=== PATIENT | female | born 2000 | race Caucasian/White ===

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

== ENCOUNTER 2021-01-23 19:57 | Inpatient (IN) | payer OTHER, SELFPAY ==
[2021-01-23] VITALS (22 sets, daily range): BP systolic 110–172; BP diastolic 57–101; PULSE 75–138; RESP 15–46; TEMP 36.7; O2SAT 98–100
--- NOTE | ~2021-01-23 | XR_ITS ---
EXAMINATION: XR abdomen NG/feed tube insert DATE: 01/24/2021 00:44 INDICATION: Orogastric tube placement. TECHNIQUE: A semiupright view of the abdomen was obtained. COMPARISON: Abdomen radiograph 11/13/2020 FINDINGS: The lower abdomen is excluded. There are no dilated loops of bowel. The orogastric tube tip is in the stomach. IMPRESSION: 1. Orogastric tube tip in the stomach. Reviewed, dictated and finalized at location A. L CAMPAIGN MANAGER
--- NOTE | ~2021-01-23 | XR_ITS ---
EXAMINATION: XR chest ET placement EXAM DATE: 01/23/2021 21:03 INDICATION: Endotracheal tube placement . Respiratory failure. TECHNIQUE: Portable AP frontal chest x-ray was obtained. Comparison is made to prior examination from 11/14/2020. FINDINGS: Endotracheal tube is in expected position. There is low lung volume, pulmonary vascular crown assembly machine set up mechanic wding. No confluent consolidation, pneumothorax or pleural effusion suspected. The cardiomediastinal silhouette is prominent but magnified on this AP technique. There are no osseous abnormalities identi fied. IMPRESSION: 1. ET tube in position. Reviewed, dictated and finalized at location A. CTOR LEARNING AND DEVELOPMENT IMPRESSION: 1. ET tube in position.
--- NOTE | ~2021-01-23 | XR_ITS ---
EXAMINATION: XR chest 1V portable DATE: 01/24/2021 05:52 INDICATION: Intubation. Allergic reaction. TECHNIQUE: A single frontal view of the chest was obtained. COMPARISON: Chest single view 01/23/2021, neck CT 11/13/2020 FINDINGS: The chest demonstrates clear lungs without pneumonia, pleural effusion, or pneumothorax. Th e heart size is normal. The endotracheal tube tip is 4.1 cm above the paul. The nasogastric tube ti p is in the stomach. IMPRESSION: 1. No acute cardiopulmonary disease. Reviewed, dictated and finalized at location A. ASSOCIATE
--- NOTE | ~2021-01-23 | XR_ITS ---
EXAMINATION: XR chest 1V portable DATE: 01/25/2021 06:00 INDICATION: Respiratory failure. TECHNIQUE: A single frontal view of the chest was obtained. COMPARISON: Chest single view 01/24/2021 FINDINGS: The chest demonstrates clear lungs without pneumonia, pleural effusion, or pneumothorax. Th e heart size is normal. The nasogastric tube tip is in the stomach. The endotracheal tube tip is 5.4 cm above the paul. IMPRESSION: 1. No acute cardiopulmonary disease. Reviewed, dictated and finalized at location A. ING METER SERVICER
[2021-01-23] MEDS: methylPREDNISolone SOD SUCC 125 MG VIAL IV PUSH (20:01)
--- NOTE | 2021-01-23 20:05 | PC.NURSE ---
MD Mensah came to bedside, plan to intubate, RT here at bedside preparing to intubate
--- NOTE | 2021-01-23 20:10 | PC.NURSE ---
20:10 Etomidate 10mg given 20:11 Succ 100mg given 20:12 Pt intubated my MD Mensah; 25 at the lip, bilateral breath sounds present
[2021-01-23] MEDS: PROPOFOL IV EMULSION 100 ML 18.18 MG IV CONT (20:20)
[2021-01-23] MEDS: MIDAZOLAM HCL (*CRX) 2 MG/2 ML VIAL 4 MG IV PUSH (20:24)
--- NOTE | 2021-01-23 20:32 | ED.ALLEREA ---
HPI - Allergic Reaction General Chief complaint: Allergic Reaction Stated complaint: ?anaphylaxis Time Seen by Provider: 01/23/21 20:01 Source: patient and EMS Mode of arrival: EMS Limitations: no limitations History of Present Illness HPI narrative: 20-year-old with a history of mast cell dysfunction, anxiety disorder was brought in from home with a sudden onset of shortness of breath, as per the EMS patient did get Benadryl and epi. Patient also took her own epi. With no relief. She denies eating any seafood. She denied any chest pain MD complaint: allergic reaction Onset (ago): minute(s) (30) Exposure: unknown Symptoms: difficulty breathing Severity: severe Treatment prior to arrival: benadryl, epinephrine and oxygen Previous Allergic Reaction History: anaphylaxis and intubation (multiple) Related Data Home Medications Medication Instructions Recorded Confirmed fexofenadine 360 mg PO DAILY 11/13/20 11/13/20 fexofenadine 360 mg PO HS 11/13/20 11/13/20 metoprolol succinate 50 mg PO DAILY 11/13/20 11/13/20 montelukast 10 mg PO DAILY 11/13/20 11/13/20 Allergies Allergy/AdvReac Type Severity Reaction Status Date / Time shellfish derived Allergy Severe Anaphylaxis Verified 11/13/20 02:21 mast cell disorder Allergy Severe Other Uncoded 11/12/20 19:50 Review of Systems Review of Systems: All systems reviewed & are unremarkable except as noted in HPI and below Constitutional: Constitutional: Reports no additional constitutional complaints Eyes: Eyes: Reports no additional eye complaints Cardiovascular: Cardiovascular: Reports no additional cardiovascular complaints Respiratory: Respiratory: Reports as per HPI Gastrointestinal: Gastrointestinal: Reports no additional gastrointestinal complaints Musculoskeletal: Musculoskeletal: Reports no additional musculoskeletal complaints Neurologic: Reports system reviewed and no additional complaints, except as documented Psychiatric: Psychiatric: Reports no additional psychiatric complaints Endocrine: Endocrine: Reports no additional endocrine complaints PMFSH Past Medical History Medical History Mast cell activation syndrome Social History Social History Smoking status: Never smoker Alcohol intake: current Substance use: never Spiritual care concerns: No Exam Narrative: GENERAL: Well-appearing, well-nourished, anxious HEAD: Normocephalic, atraumatic. EYES: PERRLA and EOMI. ENT: Nares clear, no rhinorrhea or epistaxis. Mucous membranes moist. NECK: Supple. supra sternal retractions CHEST: Clear to auscultation. in Moderate respiratory distress HEART: Tachycardic No murmur heard. Normal peripheral pulses. ABDOMEN: Soft, nontender, nondistended, normal active bowel sounds. EXTREMITIES: Normal range of motion. No edema. SKIN: Warm, dry, no rash. NEURO: No focal deficits. Alert and oriented x3. PSYCH: Normal mood and affect. Course Course Emergency Course: Patient was becoming more anxious. Opted for intubation. Patient agreeable. Vital Signs Vital signs: Vital Signs Pulse Rate 138 H 01/23/21 19:57 Respiratory Rate 46 H 01/23/21 19:57 Pulse Oximetry 100 01/23/21 19:57 Pulse Rate 116 H 01/23/21 20:59 Respiratory Rate 20 01/23/21 20:46 Blood Pressure 134/81 01/23/21 20:30 Pulse Oximetry 98 01/23/21 20:59 Procedures Intubation Intubation #1: Intubation Date: 01/23/21 Time out performed: Yes sedative: Etomidate (10) paralytic: Succinylcholine (100) Laryngoscope: Bull (4) Tube Size (cm): 7.5 Method of Intubation: orotracheal Number of Attempts: 1 Tube Secured Depth (cm): 24 Tube Secured Location: teeth (25) Tube Placement Confirmation: visualized tube passing through cords, equal breath sounds bilaterally and confirmation by capnometry
[2021-01-23 20:49] LABS: Basophils Percent Auto 0.3 % (0.2-1.2); Eosinophils Absolute Auto 0.1 K/mm3 (0-0.3); Eosinophils Percent Auto 0.7 % (0-4.4); Hematocrit 38.3 % (37.0-47.0); Hemoglobin 13.1 g/dL (12.0-15.0); Immature Granulocyte Absolute 0.06 K/mm3 (0.00-0.031); Immature Granulocyte Percent A 0.4 % (0-0.5); Lymphocytes Absolute Auto 4.95 K/mm3 (0.9-3.2); Lymphocytes Percent Auto 32.7 % (18.3-44.2); Mean Corpuscular HGB Conc 34.2 g/dl (32-36); Mean Corpuscular Hemoglobin 30.5 pg (26-34); Mean Corpuscular Volume 89.1 fl (80-100); Mean Platelet Volume 10.6 fl (7.4-10.4); Monocytes Absolute Auto 1.3 K/mm3 (0.1-0.6); Monocytes Percent Auto 8.7 % (2.6-8.5); Neutrophils Absolute Auto 8.7 K/mm3 (1.3-6.7); Neutrophils Percent Auto 57.2 % (45.5-73.1); Platelet Count Result 400 k/mm3 (150-375); Red Cell Distribution Width 12.2 % (11.5-14.5); White Blood Count 15.1 K/mm3 (4.5-10.0)
[2021-01-23 21:00] LABS: Anion Gap 13 mmol/L (8-16); Blood Urea Nitrogen 10 mg/dL (8-21); Calcium 9.4 mg/dL (8.9-10.7); Carbon Dioxide 21 mmol/L (22-30); Chloride 105 mmol/L (98-107); Estimated CRCL calculation 148 ml/min; Estimated Glomerular Filt Rate > 60; Glucose 126 mg/dL (65-110); Potassium 2.9 mmol/L (3.4-5.0); Sodium 139 mmol/L (134-143)
--- NOTE | 2021-01-23 21:00 | PC.NURSE ---
RASS 0, MD aware, pt texting on her cell phone. Calm and cooperative, pt's sister at bedside.
[2021-01-23] MEDS: SODIUM CHLORIDE 0.9% IV 1,000 ML 125 ML IV CONT (21:20)
--- NOTE | 2021-01-23 22:00 | PC.NURSE ---
RASS 0. Pt Facetiming friends/family on her cell phone. Awaiting admission to ICU. Pt's sister remains at bedside.
[2021-01-23] MEDS: diphenhydrAMINE HCl INJ 50 MG/ML VIAL 25 MG IV PUSH (22:09)
[2021-01-24] VITALS (48 sets, daily range): BP systolic 113–138; BP diastolic 65–99; PULSE 58–104; RESP 15–22; TEMP 36.8–37.1; O2SAT 98–100; BMI 31.0; BMI 30.7
[2021-01-24] MEDS: MIDAZOLAM 100MG/NS 100ML(*CRX) 100 MG/100 ML BAG IV CONT (00:34)
[2021-01-24] MEDS: PROPOFOL IV EMULSION 100 ML 30.3 MG IV CONT ×4 (00:35→10:15)
[2021-01-24] MEDS: diphenhydrAMINE HCl INJ 50 MG/ML VIAL 25 MG IV PUSH ×4 (00:38→18:36)
[2021-01-24] MEDS: methylPREDNISolone SOD SUCC 125 MG VIAL IV PUSH ×2 (00:39→06:30)
--- NOTE | 2021-01-24 01:04 | PC.NURSE ---
This patient, Kaylie Schaeffer, was admitted to Intensive Care Unit-9. Patient/family oriented to hospital policies and general routines including ID bracelet, bed and alarms, visiting hours, pain management, procedures, bathroom and other care routines, personal items, smoking policy, room service/diet, and visiting hours. Information on how to activate the Rapid Response Team has been discussed. Patient/Family are encouraged to report perceived risks to care and to ask questions if they do not understand what they are told or what they should do.
--- NOTE | 2021-01-24 03:53 | PM.IMHP ---
H&P: HPI History of Present Illness Date/Time: 01/24/21 03:53 Chief Complaint: Shortness of breath Narrative: This is a 20-year-old female with past medical history significant for mast cell dysfunction, multiple intubations, anaphylactic reaction. Patient was brought to the emergency room after she has sudden onset of anaphylactic reaction she used her EpiPen and EMS give her Benadryl an AP as well upon arrival to the emergency room patient's T complaining of severe shortness of breath requiring intubation. At the time of my visit patient was awake alert intubated unable to get any history due to this. Most of the history has been obtained upon review of medical records and speaking with emergency room physician. Preliminary workup has been essentially nonrevealing. Review of Systems Review of Systems: ROS unobtainable: Yes unobtainable due to medical condition (Patient intubated) PMFSH Past Medical History Medical History Mast cell activation syndrome Social History Social History Smoking status: Never smoker Second hand tobacco smoke exposure: No Alcohol intake: current Substance use: never Spiritual care concerns: No Meds Home Medications and Allergies Home Medications Medication Instructions Recorded Confirmed Type metoprolol succinate 50 mg PO DAILY 11/13/20 01/23/21 History montelukast 10 mg PO DAILY 11/13/20 01/23/21 History epinephrine 0.3 mg IM Q5-15M PRN #2 ea 11/16/20 01/23/21 Rx famotidine 20 mg PO Q12HR #30 tablet 11/16/20 01/23/21 Rx fexofenadine 180 mg PO DAILY 01/24/21 01/24/21 History Allergies Allergy/AdvReac Type Severity Reaction Status Date / Time shellfish derived Allergy Severe Anaphylaxis Verified 01/24/21 02:34 mast cell disorder Allergy Severe Other Uncoded 01/24/21 02:34 Vital Signs Vital Signs - 24 hr 01/23/21 19:57 01/23/21 20:14 01/23/21 20:30 Temperature Pulse Rate 138 H 118 H 118 H Respiratory Rate 46 H 16 24 H Blood Pressure 172/93 H 134/81 Pulse Oximetry 100 100 100 01/23/21 20:41 01/23/21 20:45 01/23/21 20:46 Temperature Pulse Rate 118 H 115 H 113 H Respiratory Rate 24 H 16 20 Blood Pressure Pulse Oximetry 100 98 01/23/21 20:59 01/23/21 21:00 01/23/21 21:15 Temperature 98.1 F Pulse Rate 116 H 101 H 100 Respiratory Rate 25 H 21 H Blood Pressure Pulse Oximetry 98 100 100 01/23/21 21:30 01/23/21 21:45 01/23/21 22:00 Temperature Pulse Rate 96 91 79 Respiratory Rate 24 H 30 H 17 Blood Pressure Pulse Oximetry 100 100 100 01/23/21 22:14 01/23/21 22:15 01/23/21 22:17 Temperature Pulse Rate 83 78 83 Respiratory Rate 19 15 17 Blood Pressure 114/57 L 121/67 Pulse Oximetry 99 100 100 01/23/21 22:30 01/23/21 22:32 01/23/21 22:41 Temperature Pulse Rate 81 81 82 Respiratory Rate 20 16 Blood Pressure 122/58 L Pulse Oximetry 100 100 100 01/23/21 22:45 01/23/21 22:47 01/23/21 23:37 Temperature Pulse Rate 83 75 79 Respiratory Rate 17 21 H Blood Pressure 112/101 H Pulse Oximetry 99 100 01/23/21 23:55 01/24/21 00:00 01/24/21 00:17 Temperature 98.8 F Pulse Rate 75 896 H 71 Respiratory Rate 18 17 Blood Pressure 110/65 134/68 Pulse Oximetry 100 99 100 01/24/21 00:34 01/24/21 00:35 01/24/21 01:00 Temperature Pulse Rate 90 75 73 Respiratory Rate 16 16 16 Blood Pressure Pulse Oximetry 01/24/21 01:20 01/24/21 01:45 01/24/21 02:00 Temperature Pulse Rate 73 79 99 Respiratory Rate 16 16 22 H Blood Pressure Pulse Oximetry 01/24/21 02:30 01/24/21 03:21 Temperature Pulse Rate 104 H 81 Respiratory Rate 22 H 20 Blood Pressure Pulse Oximetry Exam Narrative: Patient is laying in [place] Const: General: cooperative, comfortable, no acute distress, well developed, alert, awake, Physically active and other (Well-appearing) Nutritional Nory
[2021-01-24 05:04] LABS: Basophils Percent Auto 0.1 % (0.2-1.2); Hematocrit 37.2 % (37.0-47.0); Hemoglobin 12.4 g/dL (12.0-15.0); Immature Granulocyte Absolute 0.08 K/mm3 (0.00-0.031); Immature Granulocyte Percent A 0.7 % (0-0.5); Lymphocytes Absolute Auto 0.47 K/mm3 (0.9-3.2); Lymphocytes Percent Auto 3.8 % (18.3-44.2); Mean Corpuscular HGB Conc 33.3 g/dl (32-36); Mean Corpuscular Hemoglobin 30.1 pg (26-34); Mean Corpuscular Volume 90.3 fl (80-100); Mean Platelet Volume 10.3 fl (7.4-10.4); Monocytes Absolute Auto 0.1 K/mm3 (0.1-0.6); Monocytes Percent Auto 0.4 % (2.6-8.5); Neutrophils Absolute Auto 11.6 K/mm3 (1.3-6.7); Platelet Count Result 323 k/mm3 (150-375); Red Blood Count 4.12 M/mm3 (4.2-5.4); Red Cell Distribution Width 12.3 % (11.5-14.5); White Blood Count 12.3 K/mm3 (4.5-10.0)
[2021-01-24] MEDS: SODIUM CHLORIDE 0.9% IV 1,000 ML 125 ML IV CONT ×3 (05:20→20:39)
[2021-01-24 05:22] LABS: Anion Gap 13 mmol/L (8-16); Blood Urea Nitrogen 9 mg/dL (8-21); Calcium 9.2 mg/dL (8.9-10.7); Carbon Dioxide 19 mmol/L (22-30); Chloride 106 mmol/L (98-107); Estimated CRCL calculation 173 ml/min; Estimated Glomerular Filt Rate > 60; Glucose 207 mg/dL (65-110); Potassium 4.4 mmol/L (3.4-5.0); Sodium 138 mmol/L (134-143)
[2021-01-24 06:07] LABS: Alveolar/Arterial O2 Gradient 8.6 mmHg; Base Excess ABG -3.3 mEq/l (+/-2.0); Fractional Inspired Oxygen 25 %; Oxygen Saturation ABG 98.5 % (95.0-100.0); Oxyhemoglobin 97.2 % THb (90.0-100.0); PCO2 ABG 35.3 mmHg (35.0-45.0); PO2 ABG 127.7 mmHg (80.0-100.0); PO2 FiO2 Ratio Arterial Blood 5.11 %; Total Hemoglobin 13.8 g/dL (12.0-18.0); pH ABG 7.392 (7.350-7.450)
[2021-01-24 06:08] LABS: Arterial Blood Gas PEEP 5 cmH2O; Arterial Blood Gas Tidal Volume 400 ml; Arterial Blood Gas Vent Mode CMV; Arterial Blood Gas Ventilator rate 14 /MIN; Device VENTILATOR; Modified Allen's Test Pass; Site Drawn RIGHT RADIAL
[2021-01-24] MEDS: FAMOTIDINE 20 MG/2 ML VIAL IV PUSH ×2 (09:09→20:40)
[2021-01-24] MEDS: dexmedeTOMIDine 400 MCG/100 ML 400 MCG/100 ML BAG 12.86 MCG IV CONT (10:11)
[2021-01-24] MEDS: methylPREDNISolone SOD SUCC 125 MG VIAL 60 MG IV PUSH ×2 (12:15→18:37)
--- NOTE | 2021-01-24 12:28 | PCFNICU ---
ICU Rounding Note: Pt current nutrition is NPO. Last recorded weight is 102.9 kg. Bowel Motility:No BM reported. Labs Reviewed:Glu 207,Cr 0.6 Meds Noted:Propofol at 27.27 ml/va=142 kcals, NS, Versed, Precedex, Benadryl, Solu-Medrol, Pepcid. Skin:WNL Additional Notes: Patient on mechanical vent at this time. Diet orders NPO at this time. Tube feeding recommendations: Jevity 1.2 at 40 ml/hr over 22 hours at this time due to propofol dose. Following daily in ICU rounds. Assessing/reassessment every Friday and Friday.
--- NOTE | 2021-01-24 12:56 | WPDCNINT ---
Assessment and Plan Assessment and plan (1) Acute respiratory failure: Code(s): J96.00 - Acute respiratory failure, unspecified whether with hypoxia or hypercapnia Status: Acute Assessment and Plan: Patient presented the ED on 01/23/2021 with complains of questionable anaphylaxis, shortness of breath, severe anxiety with tachycardia, tachypnea with adequate O2 sats. Patient was intubated on 01/23/2021 in the ER. -currently on CMV mode of ventilation, peep of 5 and 25% FiO2 -patient is sedated with propofol and Versed infusion -chest x-ray this morning is clear -will start weaning sedation and evaluate for extubation -patient has a history of anxiety attacks, will start Precedex infusion (2) Allergic reaction: Code(s): T78.40XA - Allergy, unspecified, initial encounter Status: Acute Assessment and Plan: Patient with possible allergic reaction as she has a history of mast cell activation syndrome -continues Solu-Medrol, Benadryl and Pepcid (3) Acute hypokalemia: Code(s): E87.6 - Hypokalemia Status: Acute Assessment and Plan: Resolved (4) Anxiety attack: Code(s): F41.0 - Panic disorder [episodic paroxysmal anxiety] Status: Acute Assessment and Plan: Patient has been started Precedex infusion and may require some benzodiazepine prior to extubation (5) DVT prophylaxis: Code(s): Z29.9 - Encounter for prophylactic measures, unspecified Status: Acute Assessment and Plan: SCDs Additional Plan Code status full code Critical care time spent: 44 minutes This dictation may have been done utilizing a voice recognition system. Attempts have been made to correct errors. However, there may be uncorrected grammatical, spelling, and recognition errors present. Due to a high probability of clinically significant, life threatening deterioration, the patient required my highest level of preparedness to intervene emergently and I personally spent this critical care time directly and personally managing the patient. This critical care time included obtaining a history; examining the patient; pulse oximetry; ordering and review of studies; arranging urgent treatment with development of a management plan; evaluation of patient's response to treatment; frequent reassessment; and discussions with other providers. It was exclusive of separately billable procedures and treating other patients and teaching time. Please see Assessment and Plan section and the rest of the note for further information on patient assessment and treatment Photographic Double Consult Note Consult date: 01/24/21 Time Seen: 07:06 Reason for consult: Acute respiratory failure, possible anaphylaxis HPI: aKylie Schaeffer is a 20 year old female 20 you see with past medical history of mast cell activation syndrome presented the ED which complaints of allergic reaction/anaphylaxis, shortness of breath which was sudden onset. Patient did get Benadryl and epinephrine per EMS. Patient also took her own EpiPen with no relief. She denies eating a seafood. Patient did not complain the feet chest pain. She was very anxious in the ER, tachypneic, tachycardic but with good O2 sats. Was intubated in the ER on 01/23/2021. Chest x-ray is clear, WBC count was 15.1 and potassium was 2.9, which was repleted. Patient was transferred to the ICU for further management. Patient started on propofol infusion. Patient seen and examined this morning in the ICU, patient remains intubated on CMV mode of ventilation, 25% FiO2, peep of 5. Patient is sedated with propofol and Versed infusions. Patient hemodynamically stable. Adequate urine output, afebrile Review of Systems Review of Systems: ROS unobtainable: Yes unobtainable due to endotracheal tube PMFSH Past Medical History Medical History Mast cell activation syndrome Social History Social History (Reviewed
[2021-01-24] MEDS: dexmedeTOMIDine 400 MCG/100 ML 400 MCG/100 ML BAG 15.44 MCG IV CONT (16:15)
[2021-01-24] MEDS: MINERAL OIL/WHITE PETROLATUM OINTMENT 1 APPLIC EACH EYE (21:31)
[2021-01-24] MEDS: dexmedeTOMIDine 400 MCG/100 ML 400 MCG/100 ML BAG 18.01 MCG IV CONT (22:35)
[2021-01-25] VITALS (23 sets, daily range): BP systolic 121–142; BP diastolic 64–86; PULSE 53–81; RESP 15–24; TEMP 36.4–37.6; O2SAT 97–100
[2021-01-25] MEDS: methylPREDNISolone SOD SUCC 125 MG VIAL 60 MG IV PUSH ×5 (00:15→23:07)
[2021-01-25] MEDS: diphenhydrAMINE HCl INJ 50 MG/ML VIAL 25 MG IV PUSH ×5 (00:15→23:07)
[2021-01-25] MEDS: SODIUM CHLORIDE 0.9% IV 1,000 ML 125 ML IV CONT (03:44)
[2021-01-25] MEDS: dexmedeTOMIDine 400 MCG/100 ML 400 MCG/100 ML BAG 18.01 MCG IV CONT ×2 (03:45→09:16)
[2021-01-25 05:08] LABS: Basophils Percent Auto 0.1 % (0.2-1.2); Hematocrit 35.7 % (37.0-47.0); Hemoglobin 11.7 g/dL (12.0-15.0); Immature Granulocyte Absolute 0.25 K/mm3 (0.00-0.031); Immature Granulocyte Percent A 1.1 % (0-0.5); Lymphocytes Percent Auto 3.5 % (18.3-44.2); Mean Corpuscular HGB Conc 32.8 g/dl (32-36); Mean Corpuscular Hemoglobin 30.2 pg (26-34); Mean Corpuscular Volume 92.2 fl (80-100); Mean Platelet Volume 10.7 fl (7.4-10.4); Monocytes Absolute Auto 0.9 K/mm3 (0.1-0.6); Monocytes Percent Auto 4.1 % (2.6-8.5); Neutrophils Absolute Auto 20.8 K/mm3 (1.3-6.7); Neutrophils Percent Auto 91.2 % (45.5-73.1); Platelet Count Result 308 k/mm3 (150-375); Red Blood Count 3.87 M/mm3 (4.2-5.4); Red Cell Distribution Width 12.4 % (11.5-14.5); White Blood Count 22.8 K/mm3 (4.5-10.0)
[2021-01-25 05:23] LABS: Alanine Aminotransferase 16 U/L (4-35); Albumin Level 3.8 g/dL (3.7-5.6); Alkaline Phosphatase 97 U/L (45-116); Anion Gap 9 mmol/L (8-16); Aspartate Amino Transferase 26 U/L (14-36); Bilirubin,Total 0.2 mg/dL (0.2-1.3); Blood Urea Nitrogen 13 mg/dL (8-21); Calcium 8.6 mg/dL (8.9-10.7); Carbon Dioxide 21 mmol/L (22-30); Chloride 108 mmol/L (98-107); Estimated CRCL calculation 172 ml/min; Estimated Glomerular Filt Rate > 60; Glucose 170 mg/dL (65-110); Magnesium 2.1 mg/dL (1.6-2.3); Phosphorus 3.4 mg/dL (2.5-4.5); Potassium 4.1 mmol/L (3.4-5.0); Sodium 138 mmol/L (134-143)
[2021-01-25 05:27] LABS: Alveolar/Arterial O2 Gradient 30.8 mmHg; Base Excess ABG -2.7 mEq/l (+/-2.0); Carboxyhemoglobin 0.2 % THb (0-2.0); Device VENTILATOR; Fractional Inspired Oxygen 25 %; HCO3 ABG 21.5 mEq/l (22.0-26.0); Methemoglobin ABG 0.4 %THb (0-1.5); Modified Allen's Test Pass; Oxygen Content ABG 17.1 %vol (16.0-22.0); Oxygen Saturation ABG 97.9 % (95.0-100.0); Oxyhemoglobin 96.6 % THb (90.0-100.0); PCO2 ABG 35.4 mmHg (35.0-45.0); PO2 ABG 105.4 mmHg (80.0-100.0); PO2 FiO2 Ratio Arterial Blood 4.22 %; Reduced Hemoglobin 2.8 %THb (0-5.0); Site Drawn RIGHT RADIAL; Total Hemoglobin 12.5 g/dL (12.0-18.0); pH ABG 7.401 (7.350-7.450)
[2021-01-25 05:28] LABS: Arterial Blood Gas PEEP 5 cmH2O; Arterial Blood Gas Tidal Volume 40 ml; Arterial Blood Gas Vent Mode CMV; Arterial Blood Gas Ventilator rate 14 /MIN
[2021-01-25] MEDS: FAMOTIDINE 20 MG/2 ML VIAL IV PUSH ×2 (08:42→20:41)
--- NOTE | 2021-01-25 11:39 | PCFNICU ---
ICU Rounding Note: Pt current nutrition is NPO. Last recorded weight is 103.3 kg. Bowel Motility: No BM documented. Labs Reviewed: Hgb 11.7, Hct 35.7, Cr 0.6, Glu 120 Meds Noted: Xanax Skin: No skin breakdown at this time. WNL. Additional Notes: Patient was extubated. Currently NPO but advancing to clear liquids around lunch time today 01/25/2021. Following daily in ICU rounds. Assessing/reassessing every 3 days.
--- NOTE | 2021-01-25 12:58 | WPDINTPN ---
Progress Note: A&P Assessment and Plan (1) Acute respiratory failure: Code(s): J96.00 - Acute respiratory failure, unspecified whether with hypoxia or hypercapnia Status: Acute Assessment and Plan: Patient presented the ED on 01/23/2021 with complains of questionable anaphylaxis, shortness of breath, severe anxiety with tachycardia, tachypnea with adequate O2 sats. Patient was intubated on 01/23/2021 in the ER. -currently on CMV mode of ventilation, peep of 5 and 25% FiO2 -patient is sedated with propofol and Versed infusion -chest x-ray this morning is clear -patient remains on Precedex only, will place patient on SBT and evaluate for extubation -will continue Precedex post extubation and gradually wean to off (2) Allergic reaction: Code(s): T78.40XA - Allergy, unspecified, initial encounter Status: Acute Assessment and Plan: Patient with possible allergic reaction as she has a history of mast cell activation syndrome -continues Solu-Medrol, Benadryl and Pepcid (3) Acute hypokalemia: Code(s): E87.6 - Hypokalemia Status: Acute Assessment and Plan: Resolved (4) Anxiety attack: Code(s): F41.0 - Panic disorder [episodic paroxysmal anxiety] Status: Acute Assessment and Plan: Xanax has been ordered p.r.n. q.8 hours (5) DVT prophylaxis: Code(s): Z29.9 - Encounter for prophylactic measures, unspecified Status: Acute Assessment and Plan: SCDs Additional Plan Discussed with patient in updated her with her condition and plan of care. She is wanting to be extubated today. Code status full code Critical care time spent: 32 minutes This dictation may have been done utilizing a voice recognition system. Attempts have been made to correct errors. However, there may be uncorrected grammatical, spelling, and recognition errors present. Due to a high probability of clinically significant, life threatening deterioration, the patient required my highest level of preparedness to intervene emergently and I personally spent this critical care time directly and personally managing the patient. This critical care time included obtaining a history; examining the patient; pulse oximetry; ordering and review of studies; arranging urgent treatment with development of a management plan; evaluation of patient's response to treatment; frequent reassessment; and discussions with other providers. It was exclusive of separately billable procedures and treating other patients and teaching time. Please see Assessment and Plan section and the rest of the note for further information on patient assessment and treatment Subjective Date/time seen: 01/25/21 12:58 Interval history: Reason for consult: Acute respiratory failure, possible anaphylaxis 01/25/2021: Patient seen and examined the ICU, remains intubated, CMV mode of ventilation, 25% FiO2 and 5 PEEP. Patient is on Precedex infusion, is awake, able to right notes. Patient's does not seem to be anxious at this time. Urine output has been adequate, patient is afebrile, hemodynamically stable with good O2 sats. Review of Systems Review of Systems: ROS unobtainable: Yes unobtainable due to endotracheal tube Exam Const: General: comfortable and no acute distress HENMT: Other: No swelling of the tongue or lips noted Eyes: Sclera: sclerae normal Pupils: Equal, round and reactive pupils present Neck: Neck: supple Thyroid: thyroid normal Lymphatic: lymphadenopathy not noted Resp: Effort & Inspection: normal respiratory effort Auscultation: clear to auscultation bilaterally Cardio: Rate: regular rate Rhythm: regular rhythm GI: Inspection: non-distended GI Palp: Yes Soft to palpation and No Tenderness to palpation present (GI) Auscultation: normal bowel sounds : Other: Rocha catheter in place Urinary Catheter: Urinary Catheter: patent and draining and urine clear Neuro: Cranial nerves: Yes Equal, ro
[2021-01-25] MEDS: ALPRAZolam (*CRX) 0.25 MG TABLET PO (20:41)
[2021-01-26] MEDS: methylPREDNISolone SOD SUCC 125 MG VIAL 60 MG IV PUSH (05:09)
[2021-01-26] MEDS: diphenhydrAMINE HCl INJ 50 MG/ML VIAL 25 MG IV PUSH (05:09)
[2021-01-26 06:00] VITALS: BP 117/75; PULSE 88; RESP 16; TEMP 36; O2SAT 100
--- NOTE | 2021-01-26 07:39 | PCNSR ---
On 01/26/21, the student, Raya Fiore, provided care and completed [facility] documentation on this patient. I have reviewed the student's documentation and agree with the findings.
[2021-01-26] MEDS: FAMOTIDINE 20 MG/2 ML VIAL IV PUSH (08:31)
--- NOTE | 2021-01-26 09:15 | PM.DS ---
DS: Admitting Diagnosis Discharge Date 01/26/2021 Admitting Diagnosis shortness of breath DS: Discharge Diagnosis Discharge Diagnosis (1) Acute respiratory failure: Code(s): J96.00 - Acute respiratory failure, unspecified whether with hypoxia or hypercapnia Status: Acute Assessment and Plan: Patient presented the ED on 01/23/2021 with complains of questionable anaphylaxis, shortness of breath, severe anxiety with tachycardia, tachypnea with adequate O2 sats. Patient was intubated on 01/23/2021 in the ER. -currently on CMV mode of ventilation, peep of 5 and 25% FiO2 -patient is sedated with propofol and Versed infusion -chest x-ray this morning is clear -patient remains on Precedex only, will place patient on SBT and evaluate for extubation -will continue Precedex post extubation and gradually wean to off (2) Allergic reaction: Code(s): T78.40XA - Allergy, unspecified, initial encounter Status: Acute Assessment and Plan: Patient with possible allergic reaction as she has a history of mast cell activation syndrome -continues Solu-Medrol, Benadryl and Pepcid (3) Acute hypokalemia: Code(s): E87.6 - Hypokalemia Status: Acute Assessment and Plan: Resolved (4) Anxiety attack: Code(s): F41.0 - Panic disorder [episodic paroxysmal anxiety] Status: Acute Assessment and Plan: Xanax has been ordered p.r.n. q.8 hours (5) DVT prophylaxis: Code(s): Z29.9 - Encounter for prophylactic measures, unspecified Status: Acute Assessment and Plan: SCDs DS: Summary Hospital Course Reason for hospitalization: Chief Complaint: Shortness of breath Narrative: This is a 20-year-old female with past medical history significant for mast cell dysfunction, multiple intubations, anaphylactic reaction. Patient was brought to the emergency room after she has sudden onset of anaphylactic reaction she used her EpiPen and EMS give her Benadryl an AP as well upon arrival to the emergency room patient's T complaining of severe shortness of breath requiring intubation. At the time of my visit patient was awake alert intubated unable to get any history due to this. Most of the history has been obtained upon review of medical records and speaking with emergency room physician. Preliminary workup has been essentially nonrevealing. Hospital Course: Patient presented the ED on 01/23/2021 with complains of questionable anaphylaxis, shortness of breath, severe anxiety with tachycardia, tachypnea with adequate O2 sats. Patient was intubated on 01/23/2021 in the ER. -currently on CMV mode of ventilation, peep of 5 and 25% FiO2 -patient is sedated with propofol and Versed infusion -chest x-ray this morning is clear -patient remains on Precedex only, will place patient on SBT and evaluate for extubation -will continue Precedex post extubation and gradually wean to off patient was extubated and transferred out of ICU, patient with history of mast cell reactive disease and states when she has a flare-up sees significant shortness of breath and has been intubated 7 times this year, today patient states feeling comfortable not a short of breath, patient has a Epi-pen with her, will discharge the patient on tapering dose of prednisone, Pepcid, Benadryl and additional prescription for EpiPen, patient instructed if any symptoms gets worst to use her EpiPen and call 911, 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 Time spent preparing discharge summary, discharge medications, discussing discharge planning with caser and patient
== END 2021-01-26 11:45 | disposition home or self-care (01) | DRG 133 ==
LOC: ANHED 21:10 → ANHICU 01-24 13:18 → ANH3MED 01-25 22:55 → ANHICU 01-30 12:41
PROVIDERS: Internal Medicine; Admitting Provider Internal Medicine; Emergency Provider Family Medicine; Visit Provider Family Medicine
DX: J96.00 Acute respiratory failure, unspecified whether with hypoxia or hypercapnia (principal); D89.40 Mast cell activation, unspecified; T78.40XA Allergy, unspecified, initial encounter; E87.6 Hypokalemia; F41.0 Panic disorder [episodic paroxysmal anxiety]; Z79.899 Other long term (current) drug therapy; Z91.013 Allergy to seafood
CPT/HCPCS: 31500; 36415; 36600; 71045; 80048; 80053; 82375; 82805; 83050; 83735; 84100; 85025; 87077; 87086; 87088; 87186; 94003; 96365; 96375; 99285; A9270; J0330; J1200; J2250; J2704; J2930; J3480; J7030

== ENCOUNTER 2021-02-19 21:05 | Emergency (ER) | payer OTHER, SELFPAY ==
--- NOTE | ~2021-02-19 | XR_ITS ---
EXAMINATION: XR chest 1V portable EXAM DATE: 02/19/2021 22:00 INDICATION: Shortness of breath, mast effect cell disease. TECHNIQUE: Portable AP frontal chest x-ray was obtained. Comparison is made to prior examination from 01/25/2021. FINDINGS: The lungs are clear. There are no pleural effusions. The cardiomediastinal silhouette is p rominent but magnified on this AP technique. There is no pneumothorax suspected. The bones and so ft tissues are unremarkable. IMPRESSION: No acute cardiopulmonary findings. Reviewed, dictated and finalized at location A. NESS REPRESENTATIVE
[2021-02-19 21:09] VITALS: BP 124/56; PULSE 121; RESP 24; O2SAT 100
--- NOTE | 2021-02-19 21:14 | ECG_ITS ---
Measurements Intervals [place] Rate: 127 P: 52 WV: 136 QRS: 59 QRSD: 98 T: 26 QT: 403 QTc: 587 Interpretive Statements SINUS TACHYCARDIA NONSPECIFIC ST & T-WAVE ABNORMALITY- ANTEROL/INF LEADS BASELINE ARTIFACT- I, III, AVR, AVL, V1, V3-V6 ABNORMAL ECG Electronically Signed On 02-20-2021 5:21:39 PARALLEL COMPUTING SOFTWARE ENGINEER by Eloy Arce D.O.
[2021-02-19 21:17] VITALS: BP 133/74; PULSE 128; RESP 30; O2SAT 100
--- NOTE | 2021-02-19 21:17 | ED.SOB ---
HPI - SOB/Dyspnea General Chief Complaint: Shortness of Breath/Dyspnea Stated Complaint: difficulty breathing - intubated 9 x last year Time Seen by Provider: 02/19/21 21:13 Source: patient and EMS Mode of arrival: EMS Limitations: clinical condition History of Present Illness HPI Narrative: Patient is a 20 yo female with a history of mast cell dysfunction presenting for evaluation of dyspnea. Patient was recently evaluated at this facility for similar, required intubation, was initially extubated and discharged home January 26. Patient was shortness of breath developing this evening. Patient reports that she did an EpiPen at home. Dyspnea continued that she called EMS. Patient was tachycardic, anxious appearing, tachypneic for EMS. Vital signs are otherwise stable. She was given IV Solu-Medrol, IV Zofran, additional epi intramuscularly. Patient presents here awake, alert, anxious appearing, tachypneic. She is reporting nausea and some nonspecific, diffuse abdominal pain. Denying chest or back pain. Reporting shortness of breath without cough. Denies fever. Sister at bedside, states that this is happened multiple times in the past. Patient did take Benadryl at home as well. Related Data Allergies Allergy/AdvReac Type Severity Reaction Status Date / Time shellfish derived Allergy Severe Anaphylaxis Verified 02/19/21 21:32 mast cell disorder Allergy Severe Other Uncoded 02/19/21 21:32 Review of Systems Review of Systems: CONSTITUTIONAL: Denies fever CARDIOVASCULAR: Denies chest pain RESPIRATORY: Denies cough, reports shortness of breath GASTROINTESTINAL: Reports abdominal pain, nausea without vomiting GENITOURINARY: Denies dysuria or hematuria. SKIN: Denies urticaria PMFSH Past Medical History Medical History Mast cell activation syndrome Social History Social History Smoking status: Never smoker Second hand tobacco smoke exposure: No Alcohol intake: current Substance use: never Spiritual care concerns: No Exam Narrative: GENERAL: Awake, alert, tachypneic, tremulous HEAD: Normocephalic, atraumatic. EYES: PERRLA and EOMI. ENT: Nares clear, no rhinorrhea or epistaxis. Mucous membranes moist. NECK: Supple. CHEST:Pt is tachypneic, questionable supraclavicular retractions, no wheezing, lungs are clear to auscultation bilaterally, no crackles HEART: Tachycardic rate, sinus rhythm ABDOMEN:Non distended, non tender EXTREMITIES: Normal range of motion. No edema. No calf tenderness bilaterally SKIN: Warm, dry, no rash. NEURO:No focal deficits. Alert and oriented x3 PSYCH: Anxious appearing Course Vital Signs Vital signs: Vital Signs Pulse Rate 121 H 02/19/21 21:09 Respiratory Rate 24 H 02/19/21 21:09 Blood Pressure 124/56 L 02/19/21 21:09 Pulse Oximetry 100 02/19/21 21:09 Pulse Rate 78 02/20/21 01:04 Respiratory Rate 19 02/20/21 01:04 Blood Pressure 113/54 L 02/20/21 01:04 Pulse Oximetry 100 02/20/21 01:04 MDM - SOB/Dyspnea MDM Narrative Medical decision making narrative: Patient presented to the emergency department tachycardic, tachypneic, but oxygenating well. She is not cyanotic or mottled appearing. She is tolerating her secretions. I met the ambulance at bedside, continued steroids, Benadryl, albuterol treatment. Patient was given anxiolytic upon request, and actually think that this really helped to improve her symptoms. Patient was able to rest and had absolutely no respiratory distress. Her chest x-ray was clear. Her laboratory results are reassuring. She does have a mild leukocytosis. No infectious etiology at this point. The leukocytosis may be secondary to stress response. Symptoms do not seem consistent with pneumonia. No other infectious etiology. Potassium mildly low, this was replenished orally, patient received 40 mEq and tolerated this well.
[2021-02-19 21:23] LABS: Glucose Point of Care 137 mg/dl (65-105)
[2021-02-19] MEDS: DEXAMETHASONE SOD PHOS INJ 4 MG/ML VIAL (21:31)
[2021-02-19] MEDS: IPRATROPIUM BR 0.02% INH SOLN 0.5 MG/2.5 ML VIAL INHALATION (21:31)
[2021-02-19] MEDS: ALBUTEROL SULFATE NEB 2.5 MG/0.5 ML INH 5 MG INHALATION (21:31)
[2021-02-19 21:32] VITALS: BP 112/61; PULSE 113; PULSE 126; RESP 21; RESP 33; O2SAT 100
[2021-02-19] MEDS: LORazepam INJ (*CRX) 2 MG/ML VIAL 0.5 MG IV PUSH (21:34)
[2021-02-19] MEDS: HALOPERIDOL LACTATE 5 MG/ML VIAL 2 MG IV PUSH (21:35)
[2021-02-19] MEDS: ONDANSETRON INJ 4 MG/2 ML VIAL IV PUSH (21:35)
[2021-02-19] MEDS: diphenhydrAMINE HCl INJ 50 MG/ML VIAL 25 MG IV PUSH (21:35)
[2021-02-19] MEDS: FAMOTIDINE 20 MG/2 ML VIAL IV PUSH (21:35)
[2021-02-19 21:47] VITALS: BP 134/52; PULSE 97; RESP 16; O2SAT 100
[2021-02-19 21:52] LABS: Alveolar/Arterial O2 Gradient 367.2 mmHg; Base Excess ABG -6.3 mEq/l (+/-2.0); Device NON-REBREATHER MASK; Fractional Inspired Oxygen 65 %; HCO3 ABG 17.7 mEq/l (22.0-26.0); Modified Allen's Test Pass; Oxygen Content ABG 16.4 %vol (16.0-22.0); Oxygen Saturation ABG 91.9 % (95.0-100.0); Oxyhemoglobin 90.8 % THb (90.0-100.0); PCO2 ABG 30.9 mmHg (35.0-45.0); PO2 ABG 62.7 mmHg (80.0-100.0); PO2 FiO2 Ratio Arterial Blood 0.96 %; Site Drawn RIGHT RADIAL; Total Hemoglobin 12.8 g/dL (12.0-18.0); pH ABG 7.376 (7.350-7.450)
[2021-02-19 22:02] VITALS: BP 114/52; PULSE 79; RESP 22; O2SAT 100
[2021-02-19] MEDS: SODIUM CHLORIDE 0.9% IV 1,000 ML 999 ML IV CONT (22:07)
[2021-02-19 22:09] VITALS: BP 114/52; PULSE 79; RESP 25; O2SAT 100
[2021-02-19 22:47] LABS: Basophils Percent Auto 0.2 % (0.2-1.2); Eosinophils Percent Auto 0.3 % (0-4.4); Immature Granulocyte Absolute 0.09 K/mm3 (0.00-0.031); Immature Granulocyte Percent A 0.7 % (0-0.5); Lymphocytes Absolute Auto 1.12 K/mm3 (0.9-3.2); Lymphocytes Percent Auto 9.1 % (18.3-44.2); Mean Corpuscular HGB Conc 33.3 g/dl (32-36); Mean Corpuscular Hemoglobin 30.3 pg (26-34); Mean Corpuscular Volume 90.9 fl (80-100); Mean Platelet Volume 10.2 fl (7.4-10.4); Monocytes Absolute Auto 0.2 K/mm3 (0.1-0.6); Monocytes Percent Auto 1.9 % (2.6-8.5); Neutrophils Absolute Auto 10.8 K/mm3 (1.3-6.7); Neutrophils Percent Auto 87.8 % (45.5-73.1); Platelet Count Result 286 k/mm3 (150-375); Red Blood Count 3.63 M/mm3 (4.2-5.4); Red Cell Distribution Width 12.7 % (11.5-14.5); White Blood Count 12.3 K/mm3 (4.5-10.0)
[2021-02-19 22:56] LABS: Add Urine Microscopic? NO; Appearance Urine Clear (Clear); Bilirubin Urine Negative (Negative); Blood Urine Negative (Negative); Color Urine Colorless (Yellow); Glucose Urine UA Negative (Negative); Ketones Urine Negative (Negative); Leukocyte Esterase Ur Negative LEU/UL (Negative); Nitrate Urine Negative (Negative); Protein Urine Negative (Negative); Urobilinogen Urine Negative mg/dL (<2.0)
[2021-02-19 22:58] LABS: Partial Thromboplastin Time 23.5 SECONDS (22.3-36.8); Prothrombin Time 13.4 Seconds (11.1-14.7)
[2021-02-19 23:03] LABS: Specific Grav Ur 1.002 (1.001-1.035)
[2021-02-19 23:07] LABS: Alanine Aminotransferase 23 U/L (4-35); Albumin Level 3.7 g/dL (3.7-5.6); Alkaline Phosphatase 85 U/L (45-116); Anion Gap 10 mmol/L (8-16); Aspartate Amino Transferase 33 U/L (14-36); Bilirubin,Total 0.2 mg/dL (0.2-1.3); Blood Urea Nitrogen 7 mg/dL (8-21); Calcium 8.3 mg/dL (8.9-10.7); Carbon Dioxide 18 mmol/L (22-30); Chloride 106 mmol/L (98-107); Estimated CRCL calculation 174 ml/min; Estimated Glomerular Filt Rate > 60; Glucose 198 mg/dL (65-110); Lactic Acid Reflex 2.7 mmol/L (0.7-2.1); Potassium 2.9 mmol/L (3.4-5.0); Sodium 134 mmol/L (134-143)
[2021-02-19 23:17] LABS: NT Pro B Type Natriuretic Pept 79 pg/mL (5-100); Troponin I < 0.012 ng/mL (0.000-0.034)
[2021-02-20] MEDS: MAGNESIUM SULF 2 GM/WATER 50ML 2 GM/50 ML BAG IVPB (00:06)
[2021-02-20] MEDS: POTASSIUM CHLORIDE 20 MEQ PACKET (FOR LIQUID) 40 MEQ PO (00:10)
[2021-02-20 01:04] VITALS: BP 113/54; PULSE 78; RESP 19; O2SAT 100
[2021-02-20 01:45] LABS: Reflex Lactic Acid Yes or No Add Lactic
[2021-02-20 02:00] VITALS: BP 104/54; PULSE 74; RESP 16; O2SAT 98
== END 2021-02-20 02:01 | disposition home or self-care (01) ==
PROVIDERS: Emergency Provider Emergency Medicine
DX: D89.40 Mast cell activation, unspecified (principal); R00.0 Tachycardia, unspecified; R94.31 Abnormal electrocardiogram [ECG] [EKG]
CPT/HCPCS: 36415; 36600; 71045; 80053; 81003; 81025; 82805; 82948; 83605; 83880; 84484; 85025; 85610; 85730; 87040; 93005; 94640; 96361; 96365; 96374; 96375; 99284; A9270; J1100; J1200; J1630; J2060; J2405; J3475; J7030

== ENCOUNTER 2021-04-25 10:05 | Emergency (ER) | payer OTHER, SELFPAY ==
[2021-04-25 10:04] VITALS: BP 113/81; PULSE 112; RESP 16; TEMP 36.9; O2SAT 100
[2021-04-25 10:26] VITALS: PULSE 112
--- NOTE | 2021-04-25 12:00 | PC.NURSE ---
informed by pts sister that pt just had a pseudoseizure prior to me entering room and again when i left to obtain ordered meds.
--- NOTE | 2021-04-25 12:05 | ED.GENADULT ---
HPI - General Adult General Chief complaint: Shortness of Breath/Dyspnea Stated complaint: N/V Time Seen by Provider: 04/25/21 11:19 Source: patient Mode of arrival: ambulatory Limitations: no limitations History of Present Illness HPI narrative: Patient is a 20-year-old female brought in due to pseudoseizure while in class today. Patient states that sitting down when it happened denies any head, neck, chest, abdomen, back, pelvis or any extremity pain/injury. Patient states that she has a history of pseudoseizures . Patient also complaining of shortness of breath, mast cell activation disease, and states that she usually gives herself epi which helps with it but today the episode is not bad. Patient states that she really gets steroids, Benadryl and Pepcid whenever she becomes symptomatic. Patient admits to being a I am frequent flyer in the emergency room due to the above complaints. Patient states that her symptoms today is not as bad compared to her previous. Related Data Allergies Allergy/AdvReac Type Severity Reaction Status Date / Time shellfish derived Allergy Severe Anaphylaxis Verified 02/19/21 21:32 mast cell disorder Allergy Severe Other Uncoded 02/19/21 21:32 Review of Systems Review of Systems: All systems reviewed & are unremarkable except as noted in HPI and below Constitutional: Constitutional: Denies body ache(s), Denies chills, Denies excessive sweating, Denies fatigue, Denies fever(s), Denies headache(s), Denies lethargy, Denies malaise, Denies weakness and Denies weight loss Eyes: Eyes: Denies blurry vision, Denies change in vision and Denies loss of vision ENT: Denies dizziness, Denies ear discharge, Denies headache(s), Denies lip swelling, Denies epistaxis, Denies nasal congestion, Denies neck pain, Denies throat swelling and Denies tongue swelling Cardiovascular: Cardiovascular: Denies chest pain, Denies chest pain at rest, Denies chest pain with activity, Denies diaphoresis, Denies rapid heart rate, Denies edema, Denies irregular heart rhythm, Denies lightheadedness and Denies palpitations Respiratory: Respiratory: Denies chest congestion and Denies hemoptysis Gastrointestinal: Gastrointestinal: Denies abdominal pain, Denies melena, Denies hematochezia, Denies diarrhea, Denies nausea, Denies vomiting and Denies hematemesis Musculoskeletal: Musculoskeletal: Denies abnormal gait, Denies deformity, Denies joint swelling, Denies limited range of motion, Denies neck pain and Denies numbness Neurologic: Denies Abnormal speech present, Denies abnormal gait, Denies confusion, Denies dizziness, Denies headache(s), Denies focal weakness, Denies loss of vision, Denies numbness, Denies Other visual disturbances, Denies Sensory deficit (Neuro) and Denies weakness Psychiatric: Psychiatric: Denies confusion, Denies depression, Denies auditory hallucinations, Denies homicidal ideation and Denies suicidal ideation Endocrine: Endocrine: Denies cold intolerance, Denies excessive sweating, Denies fatigue, Denies heat intolerance and Denies palpitations Hematologic/Lymphatic: Hematologic/Lymphatic: Denies easy bleeding and Denies easy bruising Allergic/Immunologic: Allergic/Immunologic: Denies lip swelling, Denies throat swelling and Denies tongue swelling PMFSH Past Medical History Medical History Mast cell activation syndrome Social History Social History Smoking status: Never smoker Second hand tobacco smoke exposure: No Alcohol intake: current Substance use: never Spiritual care concerns: No Exam Const: General: cooperative, healthy appearing, comfortable, no acute distress, well developed, alert and awake; No confusion Orientation/consciousness: oriented to person, oriented to place, oriented to time, patient oriented x3 and No confusion Limitations: no limitations HENMT: Head: normal to
[2021-04-25] MEDS: diphenhydrAMINE HCl INJ 50 MG/ML VIAL 25 MG IV PUSH (12:07)
[2021-04-25] MEDS: FAMOTIDINE 20 MG/2 ML VIAL IV PUSH (12:08)
--- NOTE | 2021-04-25 12:33 | PC.NURSE ---
pt alert and oriented x 3. denies complaints. texting on phone. no distress noted.
[2021-04-25 12:47] LABS: Basophils Percent Auto 0.1 % (0.2-1.2); Eosinophils Percent Auto 0.1 % (0-4.4); Hematocrit 37.6 % (37.0-47.0); Hemoglobin 12.6 g/dL (12.0-15.0); Immature Granulocyte Absolute 0.04 K/mm3 (0.00-0.031); Immature Granulocyte Percent A 0.4 % (0-0.5); Lymphocytes Absolute Auto 1.22 K/mm3 (0.9-3.2); Lymphocytes Percent Auto 13.1 % (18.3-44.2); Mean Corpuscular HGB Conc 33.5 g/dl (32-36); Mean Corpuscular Hemoglobin 30.3 pg (26-34); Mean Corpuscular Volume 90.4 fl (80-100); Mean Platelet Volume 9.9 fl (7.4-10.4); Monocytes Absolute Auto 0.6 K/mm3 (0.1-0.6); Monocytes Percent Auto 6.2 % (2.6-8.5); Neutrophils Absolute Auto 7.5 K/mm3 (1.3-6.7); Neutrophils Percent Auto 80.1 % (45.5-73.1); Platelet Count Result 316 k/mm3 (150-375); Red Blood Count 4.16 M/mm3 (4.2-5.4); Red Cell Distribution Width 12.4 % (11.5-14.5); White Blood Count 9.3 K/mm3 (4.5-10.0)
[2021-04-25 12:59] LABS: Alanine Aminotransferase 13 U/L (4-35); Albumin Level 4.5 g/dL (3.7-5.6); Alkaline Phosphatase 116 U/L (45-116); Anion Gap 8 mmol/L (8-16); Aspartate Amino Transferase 20 U/L (14-36); Bilirubin,Total 0.2 mg/dL (0.2-1.3); Blood Urea Nitrogen 9 mg/dL (8-21); Calcium 9.4 mg/dL (8.9-10.7); Carbon Dioxide 22 mmol/L (22-30); Chloride 107 mmol/L (98-107); Estimated CRCL calculation 149 ml/min; Estimated Glomerular Filt Rate > 60; Glucose 116 mg/dL (65-110); Sodium 137 mmol/L (134-143)
[2021-04-25 15:31] VITALS: BP 123/88; PULSE 78; RESP 18; O2SAT 98
== END 2021-04-25 15:32 | disposition home or self-care (01) ==
PROVIDERS: Emergency Provider Emergency Medicine
DX: R56.9 Unspecified convulsions (principal); D89.40 Mast cell activation, unspecified
CPT/HCPCS: 36415; 80053; 85025; 96374; 96375; 99284; J1100; J1200

== ENCOUNTER 2021-05-26 12:32 | Outpatient (CLI) | payer OTHER, SELFPAY ==
--- NOTE | ~2021-05-26 | MR_ITS ---
EXAMINATION: MR knee LT wo con DATE: 05/26/2021 13:23 INDICATION: Instability and lateral left knee pain with inability to straighten reflects the left leg post fall 2 weeks prior. TECHNIQUE: Magnetic resonance imaging (MRI) of the left knee was performed without intravenous contra st. Sequences included coronal PD-weighted FSE, coronal PD-weighted FS FSE, sagittal T2-weighted FSE , sagittal PD-weighted FS FSE and axial PD weighted fat saturated FSE. COMPARISON: None. FINDINGS: Medial compartment: Medial meniscus is normal. Articular cartilage is normal. Lateral compartment: Lateral meniscus is normal. Articular cartilage is normal. Patellofemoral compartment: Articular cartilage is normal. Ligaments and tendons: Anterior and posterior cruciate ligaments are normal. The medial collateral ligament and fibular juan ateral ligament complex are normal. The extensor mechanism is normal. The visualized medial and later al hamstring tendons as well as the iliotibial band are normal. Fluid: Physiologic amount of fluid in the joint space. No loose osteochondral bodies identified. Osseous/other: Normal marrow signal. No fracture or pathologic marrow replacing process. IMPRESSION: 1. Normal left knee MRI. Reviewed, dictated and finalized at location A. YTICS ARCHITECT IMPRESSION: 1. Normal left knee MRI.
== END 2021-05-26 12:33 | disposition home or self-care (01) ==
LOC: ANHIMG 12:39
PROVIDERS: Visit Provider Nurse Practitioner Psychiatric/Mental Health
DX: S89.92XA Unspecified injury of left lower leg, initial encounter (principal); X58.XXXA Exposure to other specified factors, initial encounter
CPT/HCPCS: 73721

== ENCOUNTER 2021-12-03 18:15 | Emergency (ER) | payer OTHER, SELFPAY ==
[2021-12-03] VITALS (16 sets, daily range): BP systolic 109–132; BP diastolic 65–98; PULSE 91–137; RESP 12–32; TEMP 37; O2SAT 96–100
--- NOTE | ~2021-12-03 | XR_ITS ---
EXAMINATION: XR chest 2V Exam Date/Time: 12/03/2021 20:10 CDT HISTORY: sob, GASPING FOR AIR Comparison: 02/19/2021. RESULT: Lines, tubes, and devices: None. Lungs and pleura: Clear. Cardiomediastinal silhouette: Stable. Other: No acute osseous or upper abdominal finding. IMPRESSION: No acute cardiopulmonary process. Reviewed, dictated and finalized at location K.
--- NOTE | 2021-12-03 18:31 | ECG_ITS ---
Measurements Intervals [place] Rate: 134 P: 68 VT: 142 QRS: 73 QRSD: 84 T: 8 QT: 331 QTc: 495 Interpretive Statements SINUS TACHYCARDIA NONSPECIFIC ST & T-WAVE ABNORMALITY- ANTEROLAT/INF LEADS BASELINE ARTIFACT- I, II, III, AVR, AVL, AVF, V1, V3-V6 ABNORMAL ECG COMPARED TO ECG 02/19/2021 21:28:45 NO SIGNIFICANT CHANGES Electronically Signed On 12-03-2021 20:43:31 CDT by Eloy Arce D.O.
[2021-12-03] MEDS: ALBUTEROL SULFATE NEB 2.5 MG/3 ML INH 5 MG ×2 (18:34→18:35)
[2021-12-03] MEDS: IPRATROPIUM BR 0.02% INH SOLN 0.5 MG/2.5 ML VIAL (18:35)
[2021-12-03] MEDS: diphenhydrAMINE HCl INJ 50 MG/ML VIAL 25 MG IV PUSH (18:40)
[2021-12-03] MEDS: methylPREDNISolone SOD SUCC 125 MG VIAL IV PUSH (18:40)
[2021-12-03] MEDS: FAMOTIDINE 20 MG/2 ML VIAL IV PUSH (18:41)
--- NOTE | 2021-12-03 19:13 | PC.NURSE ---
Assumed care of pt at this time. Pt alert and upright on stretcher, breathing treatment in place. Updated pt on POC.
[2021-12-03 19:21] LABS: Basophils Percent Auto 0.4 % (0.2-1.2); Eosinophils Absolute Auto 0.1 K/mm3 (0-0.3); Eosinophils Percent Auto 1.2 % (0-4.4); Hematocrit 39.4 % (37.0-47.0); Hemoglobin 13.1 g/dL (12.0-15.0); Immature Granulocyte Absolute 0.04 K/mm3 (0.00-0.031); Immature Granulocyte Percent A 0.4 % (0-0.5); Lymphocytes Absolute Auto 3.49 K/mm3 (0.9-3.2); Lymphocytes Percent Auto 37.4 % (18.3-44.2); Mean Corpuscular HGB Conc 33.2 g/dl (32-36); Mean Corpuscular Hemoglobin 29.4 pg (26-34); Mean Corpuscular Volume 88.3 fl (80-100); Mean Platelet Volume 10.6 fl (7.4-10.4); Monocytes Absolute Auto 0.6 K/mm3 (0.1-0.6); Monocytes Percent Auto 6.8 % (2.6-8.5); Neutrophils Percent Auto 53.8 % (45.5-73.1); Platelet Count Result 365 k/mm3 (150-375); Red Blood Count 4.46 M/mm3 (4.2-5.4); Red Cell Distribution Width 11.9 % (11.5-14.5); White Blood Count 9.3 K/mm3 (4.5-10.0)
[2021-12-03] MEDS: MIDAZOLAM HCL (*CRX) 2 MG/2 ML VIAL IV PUSH (19:21)
[2021-12-03] MEDS: ONDANSETRON INJ 4 MG/2 ML VIAL IV PUSH (19:21)
--- NOTE | 2021-12-03 19:21 | ED.GENADULT ---
HPI - General Adult General Chief complaint: Shortness of Breath/Dyspnea Stated complaint: short of breath Time Seen by Provider: 12/03/21 18:56 History of Present Illness HPI narrative: Is a 21-year-old female with history of mast cell decannulation disease and pseudoseizures presented to ED with difficulty breathing. Patient has had sudden onset of what she describes as difficulty getting air into her chest. She denies wheezing. She denies GI symptoms although she is vomiting from frequent coughing. Patient denies rash, itching or other GI symptoms. Patient says she is frequently in the ER for symptoms like this and that Ativan typically helps. The patient frequently has anaphylactic reactions he due to her mast cell granulation is ease and frequently uses an EpiPen. However she says this is different from her typical presentation. Patient is symptom her albuterol at home. But is not relieved her symptoms. Patient says that she recently obtained a CT scan which showed an anatomic abnormality near the base of her trachea. She does not know what specifically the scan showed. It was performed at [facility] in [facility]. Related Data Allergies Allergy/AdvReac Type Severity Reaction Status Date / Time shellfish derived Allergy Severe Anaphylaxis Verified 02/19/21 21:32 mast cell disorder Allergy Severe Other Uncoded 02/19/21 21:32 Review of Systems Review of Systems: CONSTITUTIONAL: Denies night sweats. EYES: No eye pain ENT: Denies rhinorrhea CARDIOVASCULAR: Denies palpitations RESPIRATORY: Denies hemoptysis GASTROINTESTINAL: Denies hematemesis GENITOURINARY: Denies hematuria. SKIN: Denies rash MUSCULOSKELETAL: Denies myalgia. NEUROLOGIC: Denies weakness. PSYCHIATRIC: Denies delusions PMF Past Medical History Medical History Mast cell activation syndrome Social History Social History Smoking status: Never smoker Second hand tobacco smoke exposure: No Alcohol intake: current Substance use: never Spiritual care concerns: No Exam Narrative: APPEARANCE: Patient is sitting in bed with coughing and spitting up. She appears anxious. Head atraumatic. EYES: PERRLA/EOMI, NOSE: Normal no drainage NECK: Supple, Trachea midline RESPIRATORY: Patient is tachypneic but she has no wheezing on exam. There is no audible stridor in the patient's throat. Patient is 100% on room air CARDIOVASCULAR: S1S2 appreciated, tachycardic ABDOMINAL: Soft, nontender, nondistended, MUSCULOSKELETAl: No obvious deformities NEURO: Alert. Moving 4/4 extremities SKIN:: Warm, dry. Normal color, there is no evidence of urticaria or rash. PSYCHIATRIC: Normal affect Course Vital Signs Vital signs: Vital Signs Temperature 98.6 F 12/03/21 18:26 Pulse Rate 91 12/03/21 18:26 Respiratory Rate 32 H 12/03/21 18:26 Blood Pressure 115/65 12/03/21 18:26 Pulse Oximetry 98 12/03/21 18:26 Oxygen Delivery Room Air 12/03/21 18:26 Temperature 98.6 F 12/03/21 18:26 Pulse Rate 105 H 12/03/21 23:03 Respiratory Rate 15 12/03/21 23:03 Blood Pressure 120/81 12/03/21 23:03 Pulse Oximetry 98 12/03/21 23:12 Oxygen Delivery Room Air 12/03/21 23:12 Medical Decision Making MDM Narrative Medical decision making narrative: This is a 21-year-old female with mast cell activation syndrome presenting to the ED with difficulty breathing. The patient says that she feels a heaviness in her chest. Objectively she has no wheezing. She has no stridor her neck. She has 100% on room air. She is requesting medicine for anxiolysis. She has also been given Benadryl, Pepcid, and steroids for possible allergic reaction. We requested records from the outside hospital were waiting the results of the CT scan. Review of outside records showed linear bands across the trachea and T1. CT of the neck
[2021-12-03 19:52] LABS: Alanine Aminotransferase 18 U/L (6-35); Albumin Level 4.7 g/dL (3.5-5.1); Alkaline Phosphatase 109 U/L (38-126); Anion Gap 11 mmol/L (8-16); Aspartate Amino Transferase 29 U/L (14-36); Bilirubin,Total 0.6 mg/dL (0.2-1.3); Blood Urea Nitrogen 10 mg/dL (7-17); Calcium 9.4 mg/dL (8.4-10.2); Carbon Dioxide 20 mmol/L (22-30); Chloride 106 mmol/L (98-107); Estimated CRCL calculation 147 ml/min; Estimated Glomerular Filt Rate > 60; Glucose 101 mg/dL (65-110); Potassium 4.1 mmol/L (3.4-5.0); Sodium 137 mmol/L (137-145)
[2021-12-03] MEDS: racEPINEPHrine 2.25% NEBU SOLN 0.5 ML VIAL.NEB INHALATION (20:19)
--- NOTE | 2021-12-03 20:52 | PC.NURSE ---
Dr. Cota and COURTNEY Rodriguez at bedside for procedure.
--- NOTE | 2021-12-03 21:34 | WPDPROCEDUR ---
Procedures Laryngoscopy Laryngoscopy Comments: reji sheth utilized, supraglottic region normal, cords normal, below cords, several centimeters, tracheal stenosis present, circumferential, about 50 percent to 75 percent, patient tolerated the procedure well.
--- NOTE | 2021-12-03 21:38 | WPDCN ---
Assessment and Plan Assessment and plan (1) Tracheal stenosis: Code(s): J39.8 - Other specified diseases of upper respiratory tract Status: Acute Assessment and Plan: Recommend urgent transfer to academic center capable of intervening on stenosis. If needed, can easily intubate with a smaller tube above the stenosis and insert distal if needed. Would refrain from intubating unless required as this could worsen the stenosis. HPI Data of Consult Date/Time: 12/03/21 21:38 Primary Care Provider: BAIT DIGGER PHYSICIAN Consult Narrative Narrative: Kaylie Schaeffer is a 21 year old female with a history of mast cell activation. Presents with stridor, biphasic, history of repeated intubations. CT demonstrates scar bands at t1. ENT consulted for airway evaluation. Scope reveals tracheal stenosis several cm below the glottis, about 50-75 percent, normal otherwise. Review of Systems Review of Systems: All systems reviewed & are unremarkable except as noted in HPI and below PMFSH Past Medical History Medical History Mast cell activation syndrome Social History Social History Smoking status: Never smoker Second hand tobacco smoke exposure: No Alcohol intake: current Substance use: never Spiritual care concerns: No Meds Home Medications and Allergies Home Medications Medication Instructions Recorded Confirmed Type famotidine 20 mg tablet 20 mg PO Q12HR #30 tabs 11/16/20 01/23/21 Rx diphenhydramine HCl 25 mg capsule 25 mg PO Q6H PRN allergic reaction 01/26/21 Rx (Benadryl) #20 caps epinephrine 0.3 mg/0.3 mL 0.3 mg (0.3 mL) IM Q5-15M PRN 01/26/21 Rx injection, auto-injector anaphylaxis #2 ea epinephrine 0.3 mg/0.3 mL 0.3 mg (0.3 mL) IM Q5-15M PRN 01/26/21 01/23/21 Rx injection, auto-injector anaphylaxis #2 ea famotidine 20 mg tablet (Pepcid) 20 mg PO BID #20 tabs 01/26/21 Rx fexofenadine 180 mg tablet 180 mg PO DAILY #30 tabs 01/26/21 01/24/21 Rx metoprolol succinate 50 mg 50 mg PO DAILY #30 tabs 01/26/21 01/23/21 Rx tablet,extended release 24 hr montelukast 10 mg tablet 10 mg PO DAILY #30 tabs 01/26/21 01/23/21 Rx prednisone 10 mg tablet 10 mg PO DAILY #63 tabs 01/26/21 Rx diphenhydramine HCl 25 mg capsule 25 mg PO TID PRN allergic reaction 02/20/21 Rx (Benadryl) #14 caps epinephrine 0.3 mg/0.3 mL 0.3 mg (0.3 mL) IM ONCE #2 ea 02/20/21 Rx injection, auto-injector famotidine 20 mg tablet (Pepcid) 20 mg PO BID 15 days #30 tabs 02/20/21 Rx Allergies Allergy/AdvReac Type Severity Reaction Status Date / Time shellfish derived Allergy Severe Anaphylaxis Verified 02/19/21 21:32 mast cell disorder Allergy Severe Other Uncoded 02/19/21 21:32 Vital Signs Vital Signs - 24 hr 12/03/21 18:26 12/03/21 18:33 12/03/21 19:13 Temperature 37.0 C Pulse Rate 91 102 H 137 H Respiratory Rate 32 H 18 22 H Blood Pressure 115/65 Pulse Oximetry 98 100 Oxygen Delivery Room Air 12/03/21 19:35 12/03/21 19:53 12/03/21 19:58 Temperature Pulse Rate 131 H 113 H Respiratory Rate 18 18 Blood Pressure 123/74 Pulse Oximetry 96 Oxygen Delivery 12/03/21 20:04 12/03/21 20:20 12/03/21 20:27 Temperature Pulse Rate 116 H 116 H 128 H Respiratory Rate 12 12 14 Blood Pressure Pulse Oximetry 98 Oxygen Delivery 12/03/21 20:22 12/03/21 20:53 12/03/21 21:17 Temperature Pulse Rate 110 H 135 H 125 H Respiratory Rate 16 17 17 Blood Pressure Pulse Oximetry 97 100 97 Oxygen Delivery Exam Const: Other: normal exam other than biphasic stridor. Results Labs CBC & Chem 7: 12/03/21 19:12 12/03/21 19:12 Labs: Short CBC 12/03/21 Range/Units 19:12 WBC 9.3 (4.5-10.0) K/mm3 Hgb 13.1 (12.0-15.0) g/dL Hct 39.4 (37.0-47.0) % Plt Count 365 (150-375) k/mm3 [facility] 12/03/21 1
[2021-12-03] MEDS: OXYMETAZOLINE HCL 0.05% NAS 15 ML BTL (*BKC) 1 SPRAY NASAL (21:50)
[2021-12-04 00:08] VITALS: BP 120/59; PULSE 98; RESP 15; O2SAT 98
[2021-12-04 00:38] VITALS: BP 121/53; PULSE 92; RESP 18; O2SAT 99
== END 2021-12-04 01:01 | disposition short-term general hospital (02) ==
PROVIDERS: Emergency Medicine; Emergency Provider Emergency Medicine
DX: D89.40 Mast cell activation, unspecified (principal); J39.8 Other specified diseases of upper respiratory tract; R00.0 Tachycardia, unspecified; R94.31 Abnormal electrocardiogram [ECG] [EKG]
CPT/HCPCS: 31575; 36415; 71046; 80053; 85025; 93005; 94640; 96374; 96375; 99285; A9270; J1200; J2060; J2250; J2405; J2930

== ENCOUNTER 2022-01-03 15:13 | Inpatient (IN) | payer OTHER, SELFPAY ==
[2022-01-03] VITALS (54 sets, daily range): BP systolic 94–145; BP diastolic 43–105; PULSE 67–109; RESP 12–24; TEMP 36.6–37.3; O2SAT 93–100
--- NOTE | ~2022-01-03 | XR_ITS ---
EXAMINATION: XR chest 1V portable INDICATION: Respiratory failure TECHNIQUE: Portable AP chest at 0515 hours COMPARISON: 01/03/2022 FINDINGS: The endotracheal tube ends approximately 7.0 cm above the paul. The nasogastric tube is i n the stomach. The lungs are free of acute opacities. Previously described diffuse lung disease is no longer evident. No pleural effusion or pneumothorax. The heart size is normal. IMPRESSION: 1. Resolved diffuse lung disease. Reviewed, dictated and finalized at location A.
--- NOTE | ~2022-01-03 | XR_ITS ---
EXAMINATION: XR abdomen NG/feed tube insert DATE: 01/03/2022 18:05 INDICATION: Nasogastric tube placement. TECHNIQUE: A supine view of the abdomen was obtained. COMPARISON: None. FINDINGS: There are no dilated loops of bowel. The lower abdomen is excluded. The nasogastric tube ti p is in the stomach. IMPRESSION: 1. Nasogastric tube tip in the stomach. Reviewed, dictated and finalized at location A.
--- NOTE | ~2022-01-03 | XR_ITS ---
EXAMINATION: XR chest ET placement INDICATION: Endotracheal tube insertion TECHNIQUE: Portable AP chest at 1724 hours COMPARISON: 12/03/2021 FINDINGS: The endotracheal tube ends approximately 5 cm above the paul. There our patchy opacities throughout all lung zones. No pleural effusion or pneumothorax. The cardiomediastinal silhouette is n ormal. IMPRESSION: 1. Endotracheal tube approximately 5 cm above the paul. 2. Diffuse lung disease which could reflect atelectasis versus pneumonia versus pulmonary edema. Reviewed, dictated and finalized at location B.
[2022-01-03] MEDS: methylPREDNISolone SOD SUCC 125 MG VIAL IV PUSH (15:25)
[2022-01-03] MEDS: diphenhydrAMINE HCl INJ 50 MG/ML VIAL 25 MG IV PUSH ×2 (15:25→16:11)
[2022-01-03] MEDS: FAMOTIDINE 20 MG/2 ML VIAL IV PUSH (15:25)
[2022-01-03] MEDS: EPINEPHrine HCL INJ 1 MG/ML AMPUL 0.3 MG IM ×2 (15:26→16:55)
[2022-01-03] MEDS: LORazepam INJ (*CRX) 2 MG/ML VIAL 0.5 MG IV PUSH (15:38)
[2022-01-03] MEDS: ONDANSETRON INJ 4 MG/2 ML VIAL IV PUSH (15:38)
[2022-01-03 15:54] LABS: Basophils Percent Auto 0.2 % (0.2-1.2); Eosinophils Absolute Auto 0.1 K/mm3 (0-0.3); Eosinophils Percent Auto 0.7 % (0-4.4); Hemoglobin 13.5 g/dL (12.0-15.0); Immature Granulocyte Absolute 0.02 K/mm3 (0.00-0.031); Immature Granulocyte Percent A 0.2 % (0-0.5); Lymphocytes Absolute Auto 3.58 K/mm3 (0.9-3.2); Lymphocytes Percent Auto 39.9 % (18.3-44.2); Mean Corpuscular HGB Conc 32.9 g/dl (32-36); Mean Corpuscular Hemoglobin 29.6 pg (26-34); Mean Corpuscular Volume 89.9 fl (80-100); Mean Platelet Volume 10.5 fl (7.4-10.4); Monocytes Absolute Auto 0.8 K/mm3 (0.1-0.6); Monocytes Percent Auto 8.8 % (2.6-8.5); Neutrophils Absolute Auto 4.5 K/mm3 (1.3-6.7); Neutrophils Percent Auto 50.2 % (45.5-73.1); Platelet Count Result 328 k/mm3 (150-375); Red Blood Count 4.56 M/mm3 (4.2-5.4); Red Cell Distribution Width 12.3 % (11.5-14.5)
[2022-01-03 16:03] LABS: Alanine Aminotransferase 26 U/L (6-35); Albumin Level 4.8 g/dL (3.5-5.1); Alkaline Phosphatase 113 U/L (38-126); Anion Gap 15 mmol/L (8-16); Aspartate Amino Transferase 30 U/L (14-36); Bilirubin,Total 0.3 mg/dL (0.2-1.3); Blood Urea Nitrogen 10 mg/dL (7-17); Calcium 9.8 mg/dL (8.4-10.2); Carbon Dioxide 20 mmol/L (22-30); Chloride 104 mmol/L (98-107); Estimated Glomerular Filt Rate > 60; Glucose 114 mg/dL (65-110); Potassium 3.5 mmol/L (3.4-5.0); Sodium 139 mmol/L (137-145)
[2022-01-03 16:10] LABS: Partial Thromboplastin Time 26.9 SECONDS (22.3-36.8); Prothrombin Time 12.7 Seconds (11.1-14.7)
--- NOTE | 2022-01-03 16:56 | PC.NURSE ---
Patient still having increased work of breathing. Second dose of Epi given. OCURTNEY Sevilla in room.
--- NOTE | 2022-01-03 17:01 | PC.NURSE ---
COURTNEY Sevilla and Dr. Perla in room for intubation. Per COURTNEY Sevilla verbal order read back 1703 - 30mg Etomidate and 120mg Succinycholine given Dr. Perla assisting intubation with glidescope. 1705 - Patient intubated with 7 ETT, patient has equal and bilateral breath sounds, good CO2 color change, 23 at the lip. 1709 - Dr. Perla gave 50mg Propofol IVP 1713 - Per COURTNEY sevilla, patient given 20mg Propofol IVP
--- NOTE | 2022-01-03 17:13 | ED.ALLEREA ---
HPI - Allergic Reaction General Chief complaint: Allergic Reaction Stated complaint: axr Time Seen by Provider: 01/03/22 15:17 History of Present Illness HPI narrative: Patient is a 21-year-old female who presents ER with shortness of breath and throat discomfort. Patient has history of mast cell activation syndrome and also has history of tracheal stenosis requiring dilation. Her last dilation was 1 month ago at [facility]. Patient reports she takes Xolair for her mast cell activation syndrome and has not had issues with that since April. Usually is provoked by her menstrual cycle and she does think she is about to start her period. She has no chest pain or pressure. She has persistent cough. She did not use her EpiPen. Patient reports history of 11 intubations. Related Data Allergies Allergy/AdvReac Type Severity Reaction Status Date / Time shellfish derived Allergy Severe Anaphylaxis Verified 02/19/21 21:32 mast cell disorder Allergy Severe Other Uncoded 02/19/21 21:32 Review of Systems Review of Systems: All systems reviewed & are unremarkable except as noted in HPI and below Constitutional: Constitutional: Denies chills, Denies fatigue and Denies fever(s) ENT: Denies nasal congestion and Reports sore throat Cardiovascular: Cardiovascular: Denies chest pain, Denies rapid heart rate and Denies radiating jaw, neck or arm pain Respiratory: Respiratory: Reports cough, Reports dyspnea and Denies wheezing Gastrointestinal: Gastrointestinal: Denies abdominal pain, Denies diarrhea, Reports nausea and Denies vomiting Genitourinary: Genitourinary: Denies nocturia and Denies dysuria Psychiatric: Psychiatric: Reports anxiety PMFSH Past Medical History Medical History (Updated 01/03/22 @ 21:21 by Diego Sevilla MD) Anxiety Mast cell activation syndrome Tracheal stenosis Surgical History Surgical History (Updated 01/03/22 @ 21:16 by Diego Sevilla MD) No pertinent past surgical history Social History Social History Smoking status: Never smoker Second hand tobacco smoke exposure: No Alcohol intake: current Substance use: never Spiritual care concerns: No Exam Narrative: GENERAL: Anxious-appearing, well-nourished, and in no acute distress. HEAD: Normocephalic, atraumatic. EYES: PERRL and EOMI. ENT: Mucous membranes moist. Normal-appearing posterior oropharynx without angioedema. Uvula midline. No tonsillar hypertrophy or exudate. NECK: Supple. CHEST: Clear to auscultation. Mild respiratory distress. Speaks in a whispered/raspy voice. Frequent coughing. HEART: Tachycardic and regular. Normal peripheral pulses. ABDOMEN: Soft, nontender, nondistended. EXTREMITIES: Normal range of motion. No edema. SKIN: Warm, dry, no rash. NEURO: Alert and oriented x3. PSYCH: Anxious but seems appropriate given presentation. Course Course Emergency Course: Discussed case with ENT Dr. Cota who is familiar with the patient. He feels that if patient is having mast cell activation syndrome and is not tracheal stenosis she could be admitted to the hospital but if there is concern that she needs dilation she may need to go to [facility]. She would recommend patient have low cuff pressures and this has been relayed to respiratory. Patient has been voicing preference to go [facility] given recent care there and sister expresses same wishes. Reevaluation(s) Reevaluation #1: Patient with continued shortness of breath and discomfort after epi/Solu-Medrol/Benadryl/Pepcid. Epi redosed. Given history of difficult airway anesthesia consulted. Intubation performed by Dr. Perla. Patient being placed on ventilator with propofol drip. Date: 01/03/22 Time: 17:15 Reevaluation #2: Patient excepted at [facility] to the medical ICU by Dr. Carroll. Date: 01/03/22 Time: 18:46 Reevaluation #3: Patient waitlisted at [facility]
--- NOTE | 2022-01-03 17:14 | WPDPROCEDUR ---
Procedures Intubation Intubation Date: 01/03/22 Intubation Time: 17:05 Consent: verbal from pt Sedative: etomidate (30mg) Paralytic: succinylcholine (120mg) Laryngoscope: other (glidescope mac 3) Assist device used: other (stylet) ET tube size: 7 Tube secured depth (cm): 23 (at teeth) Tube secured location: teeth Tube placement confirmation: visualized tube passing through cords, equal breath sounds bilaterally and no breath sounds over epigastrium Patient tolerated procedure: well and no complications Intubation complications: none Additional comments: called to ED to emergently intubate young lady with recurrent allergic reactions and 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 Pt was preoxygenated VSS induced with 30mg etomidate and 120 mg sux. +cricoid pressure. Excellent visualization with Glidescope. no perilaryngeal swelling. Cords wide open 7.0 ETT passed without resistance. secured at 23cm at the teeth on propofol infusion for sedation. Care left in hands of Dr. Sevilla ED physician VSS.
[2022-01-03] MEDS: PROPOFOL IV EMULSION 100 ML 27 MG IV CONT (17:18)
--- NOTE | 2022-01-03 17:20 | PC.NURSE ---
Per EDP Roel, start propofol gtt at 50mcg/kg/min via verbal order read back. Patient fighting tube and awake at this time following propofol IVP.
--- NOTE | 2022-01-03 17:25 | PC.NURSE ---
Per EDP Roel, increase propofol gtt to 150mcg/kg/min. Patient resisting tube and awake. EDP in room.
--- NOTE | 2022-01-03 18:00 | PC.NURSE ---
Patient awake and moving arms. Propofol gtt increased to 100mcg/kg/min per EDP. Per EDP Roel start Versed and fentanyl gtt.
[2022-01-03] MEDS: MIDAZOLAM 100MG/NS 100ML(*CRX) 100 MG/100 ML BAG IV CONT (18:12)
[2022-01-03] MEDS: FENTANYL 2,500MCG/NS250ML(*CRX 2,500 MCG/250 ML BAG IV CONT (18:12)
--- NOTE | 2022-01-03 18:37 | PC.NURSE ---
Patient awake and moving arms. Propofol gtt increased to 100mcg/kg/min per EDP. Per EDP Roel start Versed and fentanyl gtt.
[2022-01-03] MEDS: PROPOFOL IV EMULSION 100 ML 21.6 MG IV CONT ×2 (18:46→23:33)
--- NOTE | 2022-01-03 18:50 | PC.NURSE ---
New full propofol gtt started at rate of 40mcg/kg/min. Old bottle disposed witnessed by DAVID Thorne.
[2022-01-03] MEDS: SODIUM CHLORIDE 0.9% IV 1,000 ML 125 ML IV CONT (19:25)
[2022-01-03 20:57] LABS: SARS-CoV-2 RNA PCR Negative
--- NOTE | 2022-01-03 21:07 | PC.NURSE ---
Checked with [facility] Transfer [facility] on status of bed. Patient is on waitlist for an ICU bed at [facility]. Definitely will not have a bed tonite, could be up to five days?
--- NOTE | 2022-01-03 21:43 | PM.IMHP ---
H&P: HPI History of Present Illness Date/Time: 01/03/22 21:43 Chief Complaint: shortness of breath Narrative: this is a 21-year-old female past medical history for mast cell activation syndrome patient presents to the emergency room with complaints of shortness of breath and throat discomfort history has been obtained mainly from sister who is at bedside and medical records as patient is now intubated and on ventilator. preliminary workup has been essentially nonrevealing. PMFSH Past Medical History Medical History (Updated 01/03/22 @ 21:21 by Diego Sevilla MD) Anxiety Mast cell activation syndrome Tracheal stenosis Surgical History Surgical History (Updated 01/03/22 @ 21:16 by Diego Sevilla MD) No pertinent past surgical history Social History Social History Smoking status: Never smoker Second hand tobacco smoke exposure: No Alcohol intake: current Substance use: never Spiritual care concerns: No Meds Home Medications and Allergies Home Medications Medication Instructions Recorded Confirmed Type famotidine 20 mg tablet 20 mg PO Q12HR #30 tabs 11/16/20 01/23/21 Rx diphenhydramine HCl 25 mg capsule 25 mg PO Q6H PRN allergic reaction 01/26/21 Rx (Benadryl) #20 caps epinephrine 0.3 mg/0.3 mL 0.3 mg (0.3 mL) IM Q5-15M PRN 01/26/21 Rx injection, auto-injector anaphylaxis #2 ea epinephrine 0.3 mg/0.3 mL 0.3 mg (0.3 mL) IM Q5-15M PRN 01/26/21 01/04/22 Rx injection, auto-injector anaphylaxis #2 ea famotidine 20 mg tablet (Pepcid) 20 mg PO BID #20 tabs 01/26/21 Rx fexofenadine 180 mg tablet 180 mg PO DAILY #30 tabs 01/26/21 01/24/21 Rx metoprolol succinate 50 mg 50 mg PO DAILY #30 tabs 01/26/21 01/23/21 Rx tablet,extended release 24 hr montelukast 10 mg tablet 10 mg PO DAILY #30 tabs 01/26/21 01/23/21 Rx prednisone 10 mg tablet 10 mg PO DAILY #63 tabs 01/26/21 Rx diphenhydramine HCl 25 mg capsule 25 mg PO TID PRN allergic reaction 02/20/21 Rx (Benadryl) #14 caps epinephrine 0.3 mg/0.3 mL 0.3 mg (0.3 mL) IM ONCE #2 ea 02/20/21 Rx injection, auto-injector famotidine 20 mg tablet (Pepcid) 20 mg PO BID 15 days #30 tabs 02/20/21 Rx Allergies Allergy/AdvReac Type Severity Reaction Status Date / Time shellfish derived Allergy Severe Anaphylaxis Verified 02/19/21 21:32 mast cell disorder Allergy Severe Other Uncoded 02/19/21 21:32 Vital Signs Vital Signs - 24 hr 01/03/22 15:19 01/03/22 16:23 01/03/22 15:30 Temperature 97.8 F Pulse Rate 98 97 Respiratory Rate 16 18 Blood Pressure 140/105 H 124/75 Pulse Oximetry 100 98 99 Oxygen Delivery Room Air Room Air Fraction of Inspired Oxygen 01/03/22 16:59 01/03/22 17:37 01/03/22 18:12 Temperature Pulse Rate 94 103 H Respiratory Rate 23 H 20 Blood Pressure 145/77 H Pulse Oximetry 100 96 Oxygen Delivery Mechanical Ventilation Fraction of Inspired Oxygen 01/03/22 17:15 01/03/22 18:22 01/03/22 18:30 Temperature Pulse Rate 109 H 89 86 Respiratory Rate 18 18 Blood Pressure Pulse Oximetry 96 96 94 Oxygen Delivery Mechanical Ventilation Fraction of Inspired Oxygen 21 01/03/22 18:31 01/03/22 18:32 01/03/22 18:52 Temperature Pulse Rate 85 88 83 Respiratory Rate 18 19 20 Blood Pressure 94/43 L Pulse Oximetry 94 94 95 Oxygen Delivery Fraction of Inspired Oxygen 01/03/22 19:00 01/03/22 19:01 01/03/22 19:02 Temperature 99.1 F Pulse Rate 83 85 84 Respiratory Rate 21 H 18 19 Blood Pressure 102/50 L Pulse Oximetry 93 95 95 Oxygen Delivery Fraction of Inspired Oxygen 01/03/22 19:16 01/03/22 19:18 01/03/22 19:30 Temperature Pulse Rate 85 84 106 H Respiratory Rate 18 19 22 H Blood Pressure 103/49 L Pulse Oximetry 95 95 97 Oxygen Delivery Fraction of Inspired Oxygen 01/03/22 19:31 01/03/22 19:57 01/03/22 19:58 Temperature Pulse Rate 107 H 91 91 Respiratory Rate 24 H 2
--- NOTE | 2022-01-03 22:46 | PC.NURSE ---
New bottle of propofol hung for sedation. 6 ,l waste from last bottle witnessed by Alexia Ruiz stamp pad finisher RN
[2022-01-04] VITALS (104 sets, daily range): BP systolic 97–124; BP diastolic 47–75; PULSE 55–125; RESP 7–24; TEMP 36.6–37.3; O2SAT 93–100; BMI 30.3; BMI 33.5
[2022-01-04] MEDS: methylPREDNISolone SOD SUCC 125 MG VIAL 60 MG IV PUSH ×5 (01:25→23:11)
[2022-01-04] MEDS: PROPOFOL IV EMULSION 100 ML 18.9 MG IV CONT (03:30)
[2022-01-04] MEDS: SODIUM CHLORIDE 0.9% IV 1,000 ML 125 ML IV CONT ×3 (03:30→20:21)
--- NOTE | 2022-01-04 03:39 | ADMGEN ---
This patient, Kaylie Schaeffer, was admitted to Intensive Care Unit-8 at 0055 on 01/04/2022. Patient/family oriented to hospital policies and general routines including ID bracelet, bed and alarms, visiting hours, pain management, procedures, bathroom and other care routines, personal items, smoking policy, room service/diet, and visiting hours. Information on how to activate the Rapid Response Team has been discussed. Patient/Family are encouraged to report perceived risks to care and to ask questions if they do not understand what they are told or what they should do.
[2022-01-04] MEDS: diphenhydrAMINE HCl INJ 50 MG/ML VIAL 25 MG IV PUSH ×2 (11:22→20:16)
[2022-01-04] MEDS: MINERAL OIL/WHITE PETROLATUM OINTMENT 1 APPLIC EACH EYE ×2 (11:22→20:21)
[2022-01-04] MEDS: FAMOTIDINE 20 MG/2 ML VIAL IV PUSH ×2 (11:25→20:16)
[2022-01-04] MEDS: PROPOFOL IV EMULSION 100 ML 27 MG IV CONT (11:25)
[2022-01-04 11:28] LABS: Alveolar/Arterial O2 Gradient 27.6 mmHg; Base Excess ABG -4.8 mEq/l (+/-2.0); Fractional Inspired Oxygen 21 %; HCO3 ABG 20.3 mEq/l (22.0-26.0); Oxygen Content ABG 17.3 %vol (16.0-22.0); Oxygen Saturation ABG 94.9 % (95.0-100.0); Oxyhemoglobin 93.8 % THb (90.0-100.0); PCO2 ABG 37.6 mmHg (35.0-45.0); PO2 ABG 77.1 mmHg (80.0-100.0); PO2 FiO2 Ratio Arterial Blood 3.67 %; Total Hemoglobin 13.1 g/dL (12.0-18.0)
[2022-01-04 11:30] LABS: Arterial Blood Gas PEEP 5 cmH2O; Arterial Blood Gas Tidal Volume 350 ml; Arterial Blood Gas Vent Mode CMV; Arterial Blood Gas Ventilator rate 12 /MIN; Device VENTILATOR; Modified Allen's Test Pass; Site Drawn RIGHT RADIAL
--- NOTE | 2022-01-04 12:18 | PM.IMPN ---
Progress Note: A&P Assessment and Plan (1) Respiratory failure: Code(s): J96.90 - Respiratory failure, unspecified, unspecified whether with hypoxia or hypercapnia Status: Acute Assessment and Plan: secondary to mass cell activation S/subglottic stenosis Dr Cramer covering for ICU. Continue vent support sedation. Continue Solu-Medrol and histamine blockade (2) Tracheal stenosis: Code(s): J39.8 - Other specified diseases of upper respiratory tract Status: Acute Assessment and Plan: currently intubated and on ventilator support ENT has been consulted (3) Respiratory distress: Code(s): R06.03 - Acute respiratory distress Status: Acute Assessment and Plan: likely secondary to mass cell activation syndrome supportive care (4) Mast cell activation syndrome: Code(s): D89.40 - Mast cell activation, unspecified Status: Acute Assessment and Plan: continue Solu-Medrol Subjective Date/time seen: 01/04/22 12:18 intubated Exam Narrative: patient is laying in a stretcher Const: General: comfortable, no acute distress, well developed, alert, awake and average body habitus Nutritional Appearance: average body habitus Orientation/consciousness: patient oriented x3 and Other orientation findings ( under conscious sedation) Other: on ventilator support HENMT: Head: normal to inspection, normocephalic and atraumatic Ears: hearing grossly normal bilaterally Face/Nose/Sinus: normal facial exam Face and sinus: normal facial exam Eyes: General: appearance normal, both eyes and all related structures Pupils: Equal, round and reactive pupils present EOM: EOMs intact bilaterally Neck: Neck: full ROM, no lymphadenopathy and no JVD Thyroid: thyroid normal Lymphatic: no lymphadenopathy noted Resp: Effort & Inspection: normal respiratory effort and able to speak in complete sentences Auscultation: clear to auscultation bilaterally Cardio: Jugular venous distension: no JVD Rate: regular rate Rhythm: regular rhythm Heart sounds: S1 normal heart sound present and S2 normal heart sound present : General: Yes deferred Skin: Rashes: no rashes Wounds: no wounds Neuro: General: patient oriented x3, CN's II-XI intact bilaterally and Unable to assess gait Cranial nerves: Yes CN's II-XII intact bilaterally and Yes Equal, round and reactive pupils present Cognition (Neuro): normal cognition Speech: normal speech Gait exam (Neuro): Unable to assess gait Motor exam (neuro): 5/5 motor strength present throughout Extrem: General: normal to inspection, full ROM, no joint enlargement and no pedal edema Objective Data Vital Signs Vital Signs: Vital Signs - 24 hr 01/03/22 15:19 01/03/22 16:23 01/03/22 15:30 Temperature 97.8 F Pulse Rate 98 97 Respiratory Rate 16 18 Blood Pressure 140/105 H 124/75 Pulse Oximetry 100 98 99 Oxygen Delivery Room Air Room Air Fraction of Inspired Oxygen 01/03/22 16:59 01/03/22 17:37 01/03/22 18:12 Temperature Pulse Rate 94 103 H Respiratory Rate 23 H 20 Blood Pressure 145/77 H Pulse Oximetry 100 96 Oxygen Delivery Mechanical Ventilation Fraction of Inspired Oxygen 01/03/22 17:15 01/03/22 18:22 01/03/22 18:30 Temperature Pulse Rate 109 H 89 86 Respiratory Rate 18 18 Blood Pressure Pulse Oximetry 96 96 94 Oxygen Delivery Mechanical Ventilation Fraction of Inspired Oxygen 21 01/03/22 18:31 01/03/22 18:32 01/03/22 18:52 Temperature Pulse Rate 85 88 83 Respiratory Rate 18 19 20 Blood Pressure 94/43 L Pulse Oximetry 94 94 95 Oxygen Delivery Fraction of Inspired Oxygen 01/03/22 19:00 01/03/22 19:01 01/03/22 19:02 Temperature 99.1 F Pulse Rate 83 85 84 Respiratory Rate 21 H 18 19 Blood Pressure 102/50 L Pulse Oximetry 93 95 95 Oxygen Delivery Fraction of Inspired Oxygen 01/03/22 19:16 01/03/22 19:18 01/03/22 19:30 Temperature
--- NOTE | 2022-01-04 14:12 | WPDNEURCNPN ---
Assessment and Plan Assessment and plan (1) Respiratory failure: Code(s): J96.90 - Respiratory failure, unspecified, unspecified whether with hypoxia or hypercapnia Status: Acute (2) Tracheal stenosis: Code(s): J39.8 - Other specified diseases of upper respiratory tract Status: Acute Plan 1 mast cell activation syndrome 2 tracheal stenosis 3 nonfocal limited exam under sedation and on ventilator Consult date: 01/04/22 Time Seen: 13:00 HPI: Kaylie Schaeffer is a 21 year old female admitted to the hospital through the emergency room for difficulties in breathing any specific complaints of throat discomfort patient carries the diagnosis of 1. Mast cell activation syndrome 2. Tracheal stenosis with need for dilatation. Her last dilatation was about a month ago [facility] she also takes Xolair for her mast cell activation syndrome she has persistent cough in the past she has undergone 11 times intubation she is allergic to shellfish, has history of anxiety as well, is never a smoker but this current alcohol intake initial exam in the emergency room revealed her to be tachycardiac with whispered and raspy [place] on communication and frequent cough she was intubated in the ER and was [facility] the [facility], vital signs were stable, placed on mechanical ventilation, routine lab normal Review of Systems Review of Systems: All systems reviewed & are unremarkable except as noted in HPI and below PMFSH Past Medical History Medical History (Updated 01/03/22 @ 21:21 by Diego Sevilla MD) Anxiety Mast cell activation syndrome Tracheal stenosis Surgical History Surgical History (Updated 01/03/22 @ 21:16 by Diego Sevilla MD) No pertinent past surgical history Social History Social History Smoking status: Never smoker Second hand tobacco smoke exposure: No Alcohol intake: current Substance use: never Spiritual care concerns: No Meds Home Medications and Allergies Home Medications Medication Instructions Recorded Confirmed Type epinephrine 0.3 mg/0.3 mL 0.3 mg (0.3 mL) IM Q5-15M PRN 01/26/21 01/04/22 Rx injection, auto-injector anaphylaxis #2 ea albuterol sulfate 90 mcg/actuation 1 - 2 puff inhalation Q4-6H PRN 01/04/22 01/04/22 History aerosol inhaler Shortness Of Breath Or Wheezing Allergies Allergy/AdvReac Type Severity Reaction Status Date / Time shellfish derived Allergy Severe Anaphylaxis Verified 02/19/21 21:32 mast cell disorder Allergy Severe Other Uncoded 02/19/21 21:32 Vital Signs Vital Signs - 24 hr 01/03/22 15:19 01/03/22 16:23 01/03/22 15:30 Temperature 36.6 C Pulse Rate 98 97 Respiratory Rate 16 18 Blood Pressure 140/105 H 124/75 Pulse Oximetry 100 98 99 Oxygen Delivery Room Air Room Air Fraction of Inspired Oxygen 01/03/22 16:59 01/03/22 17:37 01/03/22 18:12 Temperature Pulse Rate 94 103 H Respiratory Rate 23 H 20 Blood Pressure 145/77 H Pulse Oximetry 100 96 Oxygen Delivery Mechanical Ventilation Fraction of Inspired Oxygen 01/03/22 17:15 01/03/22 18:22 01/03/22 18:30 Temperature Pulse Rate 109 H 89 86 Respiratory Rate 18 18 Blood Pressure Pulse Oximetry 96 96 94 Oxygen Delivery Mechanical Ventilation Fraction of Inspired Oxygen 21 01/03/22 18:31 01/03/22 18:32 01/03/22 18:52 Temperature Pulse Rate 85 88 83 Respiratory Rate 18 19 20 Blood Pressure 94/43 L Pulse Oximetry 94 94 95 Oxygen Delivery Fraction of Inspired Oxygen 01/03/22 19:00 01/03/22 19:01 01/03/22 19:02 Temperature 37.3 C Pulse Rate 83 85 84 Respiratory Rate 21 H 18 19 Blood Pressure 102/50 L Pulse Oximetry 93 95 95 Oxygen Delivery Fraction of Inspired Oxygen 01/03/22 19:16 01/03/22 19:18 01/03/22 19:30 Temperature Pulse Rate 85 84 106 H Respiratory Rate 18 19 22 H Blood Pressur
[2022-01-04] MEDS: IPRATROPIUM BR 0.02% INH SOLN 0.5 MG/2.5 ML VIAL INHALATION ×2 (14:40→20:54)
[2022-01-04] MEDS: ALBUTEROL SULFATE NEB 2.5 MG/3 ML INH INHALATION ×2 (14:40→20:54)
[2022-01-04] MEDS: MIDAZOLAM 100MG/NS 100ML(*CRX) 100 MG/100 ML BAG 6 MG IV CONT (15:21)
[2022-01-04] MEDS: PROPOFOL IV EMULSION 100 ML 31.86 MG IV CONT ×2 (15:56→20:15)
--- NOTE | 2022-01-04 16:54 | WPDCNINT ---
Assessment and Plan Assessment and plan (1) Acute respiratory failure: Code(s): J96.00 - Acute respiratory failure, unspecified whether with hypoxia or hypercapnia Status: Acute Assessment and Plan: She was intubated by anesthesia, did not have visible abnormalities. Now on AC rate 12, TV 350, FiO2 0.21 PEEP 5 with adequate oxygenation She was not in difficult intubation this time but frequently is difficult to intubate. She has tracheal stenosis which her mother says is very distal and mid trachea. She recently had laser treatment about 10 days ago at [facility]. They have her on a waiting list and as of this time at 6:00 p.m. our charge nurse said that the senior warehouse clerk at [facility] says it may be soon as she is high on the list. She is complicated, has an production recorder at [facility], on Xolair, and she uses an emergent safety kit with an EpiPen, Benadryl, Pepcid however this time it did not work. Her mother asked about possible extubation. I am not planning to extubate. I do not have any back up if she deteriorates. She recently had tracheal stenosis we lasered. Since she is close to being transferred to [facility] we will leave her on the vent sedated comfortably. She has diffuse infiltrates on her chest x-ray. Will repeat chest x-ray tomorrow. Continue sedation propofol, Versed, fentanyl; GI prophylaxis, bronchodilator, IV steroid, IV Pepcid (2) Mast cell activation syndrome: Code(s): D89.40 - Mast cell activation, unspecified Status: Acute Assessment and Plan: Uncommon condition with life threatening episodes triggered by unclear events. 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 Nursing staff tells me the patient had an episode that was consistent with pseudo seizure today. Neurologist was here and evaluated her. She is not on any anti epileptic medications because she is not have cap breath and this is per the mother's instruction. There is some allergic reaction to it. Also the patient quit having shaking when the neurologist and gently touched her foot. (5) Acquired stenosis of trachea: Code(s): J39.8 - Other specified diseases of upper respiratory tract Status: Inactive Assessment and Plan: This is attributed to multiple intubations. She apparently has difficulties in the upper airway as well as the lower trachea. She had a recent laser to the lower trachea at [facility]. Plan Due to a high probability of clinically significant, life threatening deterioration, the patient required my highest level of preparedness to intervene emergently and I personally spent this critical care time directly and personally managing the patient. This critical care time included obtaining a history; examining the patient; pulse oximetry; ordering and review of studies; arranging urgent treatment with development of a management plan; evaluation of patient's response to treatment; frequent reassessment; and discussions with other providers. It was exclusive of separately billable procedures and treating other patients and teaching time. Please see Assessment and Plan section and the rest of the note for further information on patient assessment and treatment Critical Care time 40 min
[2022-01-04] MEDS: FENTANYL 2,500MCG/NS250ML(*CRX 2,500 MCG/250 ML BAG 12.5 MCG IV CONT (20:13)
[2022-01-04] MEDS: PROPOFOL IV EMULSION 100 ML 28.67 MG IV CONT (23:10)
[2022-01-05] VITALS (58 sets, daily range): BP systolic 107–127; BP diastolic 55–73; PULSE 51–115; RESP 12–28; TEMP 36.7–37.2; O2SAT 96–100
[2022-01-05] MEDS: ALBUTEROL SULFATE NEB 2.5 MG/3 ML INH INHALATION ×4 (02:03→20:16)
[2022-01-05] MEDS: IPRATROPIUM BR 0.02% INH SOLN 0.5 MG/2.5 ML VIAL INHALATION ×4 (02:03→20:15)
[2022-01-05] MEDS: SODIUM CHLORIDE 0.9% IV 1,000 ML 125 ML IV CONT ×2 (03:02→11:50)
[2022-01-05] MEDS: MIDAZOLAM 100MG/NS 100ML(*CRX) 100 MG/100 ML BAG 7 MG IV CONT (03:02)
[2022-01-05] MEDS: PROPOFOL IV EMULSION 100 ML 25.49 MG IV CONT ×2 (03:05→19:51)
[2022-01-05 05:32] LABS: Alveolar/Arterial O2 Gradient 32.9 mmHg; Carboxyhemoglobin 0.3 % THb (0-2.0); Fractional Inspired Oxygen 21 %; HCO3 ABG 22.1 mEq/l (22.0-26.0); Methemoglobin ABG 0.3 %THb (0-1.5); Oxygen Content ABG 16.1 %vol (16.0-22.0); Oxygen Saturation ABG 95.3 % (95.0-100.0); Oxyhemoglobin 94.4 % THb (90.0-100.0); PCO2 ABG 35.1 mmHg (35.0-45.0); PO2 ABG 74.8 mmHg (80.0-100.0); PO2 FiO2 Ratio Arterial Blood 3.56 %; Total Hemoglobin 12.1 g/dL (12.0-18.0); pH ABG 7.416 (7.350-7.450)
[2022-01-05 05:36] LABS: Device VENTILATOR; Modified Allen's Test Pass; Site Drawn RIGHT RADIAL
[2022-01-05 05:37] LABS: Arterial Blood Gas PEEP 5 cmH2O; Arterial Blood Gas Tidal Volume 470 ml; Arterial Blood Gas Vent Mode CMV; Arterial Blood Gas Ventilator rate 14 /MIN
[2022-01-05] MEDS: methylPREDNISolone SOD SUCC 125 MG VIAL 60 MG IV PUSH ×3 (06:11→17:31)
[2022-01-05] MEDS: MINERAL OIL/WHITE PETROLATUM OINTMENT 1 APPLIC EACH EYE ×2 (08:49→20:04)
[2022-01-05] MEDS: FAMOTIDINE 20 MG/2 ML VIAL IV PUSH ×2 (08:49→20:02)
[2022-01-05] MEDS: diphenhydrAMINE HCl INJ 50 MG/ML VIAL 25 MG IV PUSH ×2 (08:49→20:00)
[2022-01-05] MEDS: PROPOFOL IV EMULSION 100 ML 15.93 MG IV CONT (08:52)
--- NOTE | 2022-01-05 10:46 | PM.IMPN ---
Progress Note: A&P Assessment and Plan (1) Respiratory failure: Code(s): J96.90 - Respiratory failure, unspecified, unspecified whether with hypoxia or hypercapnia Status: Acute Assessment and Plan: secondary to mass cell activation S/subglottic stenosis Dr Cramer covering for ICU. Continue vent support sedation. Continue Solu-Medrol and histamine blockade (2) Tracheal stenosis: Code(s): J39.8 - Other specified diseases of upper respiratory tract Status: Acute Assessment and Plan: currently intubated and on ventilator support ENT has been consulted (3) Respiratory distress: Code(s): R06.03 - Acute respiratory distress Status: Acute Assessment and Plan: likely secondary to mass cell activation syndrome supportive care (4) Mast cell activation syndrome: Code(s): D89.40 - Mast cell activation, unspecified Status: Acute Assessment and Plan: continue Solu-Medrol Subjective Date/time seen: 01/05/22 10:46 Intubated Exam Const: General: comfortable, no acute distress, well developed, alert, awake and average body habitus Nutritional Appearance: average body habitus Orientation/consciousness: patient oriented x3 and Other orientation findings ( under conscious sedation) Other: on ventilator support HENMT: Head: normal to inspection, normocephalic and atraumatic Ears: hearing grossly normal bilaterally Face/Nose/Sinus: normal facial exam Face and sinus: normal facial exam Eyes: General: appearance normal, both eyes and all related structures Pupils: Equal, round and reactive pupils present EOM: EOMs intact bilaterally Neck: Neck: full ROM, no lymphadenopathy and no JVD Thyroid: thyroid normal Lymphatic: no lymphadenopathy noted Resp: Effort & Inspection: normal respiratory effort and able to speak in complete sentences Auscultation: clear to auscultation bilaterally Cardio: Jugular venous distension: no JVD Rate: regular rate Rhythm: regular rhythm Heart sounds: S1 normal heart sound present and S2 normal heart sound present : General: Yes deferred Skin: Rashes: no rashes Wounds: no wounds Neuro: General: patient oriented x3, CN's II-XI intact bilaterally and Unable to assess gait Cranial nerves: Yes CN's II-XII intact bilaterally and Yes Equal, round and reactive pupils present Cognition (Neuro): normal cognition Speech: normal speech Gait exam (Neuro): Unable to assess gait Motor exam (neuro): 5/5 motor strength present throughout Extrem: General: normal to inspection, full ROM, no joint enlargement and no pedal edema Objective Data Vital Signs Vital Signs: Vital Signs - 24 hr 01/04/22 11:26 01/04/22 12:00 01/04/22 12:00 Temperature Pulse Rate 78 69 69 Respiratory Rate 11 L Blood Pressure Pulse Oximetry 97 96 Oxygen Delivery Mechanical Ventilation Mechanical Ventilation Fraction of Inspired Oxygen 21 01/04/22 12:00 01/04/22 11:00 01/04/22 11:01 Temperature Pulse Rate 75 75 Respiratory Rate 12 13 Blood Pressure 122/73 Pulse Oximetry 97 97 Oxygen Delivery Fraction of Inspired Oxygen 21 01/04/22 11:15 01/04/22 11:30 01/04/22 11:45 Temperature Pulse Rate 81 82 75 Respiratory Rate 13 15 13 Blood Pressure Pulse Oximetry 99 96 97 Oxygen Delivery Fraction of Inspired Oxygen 01/04/22 12:00 01/04/22 12:01 01/04/22 12:15 Temperature Pulse Rate 68 72 69 Respiratory Rate 11 L 10 L 10 L Blood Pressure 111/57 L Pulse Oximetry 96 96 97 Oxygen Delivery Fraction of Inspired Oxygen 01/04/22 14:00 01/04/22 12:30 01/04/22 12:45 Temperature Pulse Rate 71 69 70 Respiratory Rate 11 L 11 L Blood Pressure Pulse Oximetry 96 96 Oxygen Delivery Fraction of Inspired Oxygen 01/04/22 13:00 01/04/22 13:01 01/04/22 13:24 Temperature Pulse Rate 71 71 71 Respiratory Rate 11 L 12 10 L Blood Pressure 114/62 Pulse Oximetry 97
--- NOTE | 2022-01-05 15:10 | WPDINTPN ---
Progress Note: A&P Assessment and Plan (1) Acute respiratory failure: Code(s): J96.00 - Acute respiratory failure, unspecified whether with hypoxia or hypercapnia Status: Acute Assessment and Plan: She was intubated by anesthesia, did not have visible abnormalities. Now on AC rate 14, TV 475, FiO2 0.21 PEEP 5 with adequate oxygenation She was not a difficult intubation this time but frequently is difficult to intubate. She has tracheal stenosis which her mother says is very distal trachea.? She recently had laser treatment about 11 days ago at [facility]. She remains on a waiting list at [facility]. She is complicated, has an owner oral surgeon at [facility], on Xolair, and she uses an emergent safety kit with an EpiPen, Benadryl, Pepcid however this time it did not work.? Her mother asked about possible extubation.? I am not planning to extubate.? I do not have any back up if she deteriorates.? She recently had tracheal stenosis we lasered.? Since she is close to being transferred to [facility] we will leave her on the vent sedated comfortably. She has diffuse infiltrates on her chest x-ray.? 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 She apparently has difficulties in the upper airway as well as the lower trachea.? She had a recent laser to the lower trachea at [facility]. 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 She had this with a laser.? She presented to emergency room with complaints of shortness of breath and throat discomfort, was intubated after her home treatment regimen Benadryl, EpiPen, Pepcid did not work. ? She has had this happen multiple times, this being the 11th to 13th intubation per her mother.? She is a difficult intubation.? She has an owner oral surgeon at [facility] and is treated for mast cell activation with Xolair for the last 6-9 months.? There seems to be relationship to her menstrual cycles.? There is not a consensus is or a plan on how to address this.? She is not on hormonal treatments. She has a history of pseudoseizures. Dr Pacheco saw her 01/04/22, suspected a pseudoseizure. No EEG was obtained. The patient is not to get Keppra, per nursing staff. Her mother said that she had 2 severe episodes, once in a class when a bottle of shrimp dust was opened.? She inhaled it and had a severe episode.? Another 1 was walking into a bowling alley where shrimp was being a cook.? She immediately had a severe reaction. 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 Anxiety. Pseudoseizures. 01/04/22 ABG : 01/04/22 pH 7.35/pCO2 37.6/ PO2 77.1/ HC03 20.3/ saturation 94.9% 01/05/2022: She has improved CXR. She developed some movements that the nurse reported were suggestive of the pseudoseizure activity she had 2 days ago. She received Ativan 2 mg IV which appeared ot help decreased the movements. Sister is at the bedside. CXR 01/05/2022??Resolved acute lung disease Review of Systems Review of Syst
[2022-01-05] MEDS: PROPOFOL IV EMULSION 100 ML 19.12 MG IV CONT (15:26)
[2022-01-05] MEDS: MIDAZOLAM 100MG/NS 100ML(*CRX) 100 MG/100 ML BAG 8 MG IV CONT (17:24)
[2022-01-05] MEDS: FENTANYL 2,500MCG/NS250ML(*CRX 2,500 MCG/250 ML BAG 15 MCG IV CONT (17:27)
--- NOTE | 2022-01-05 19:29 | PC.NURSE ---
On 01/05/22, the student, Chrissy Guerrero, provided care and completed [employer] documentation on this patient. I have reviewed the student's documentation and agree with the findings.
[2022-01-05] MEDS: SODIUM CHLORIDE 0.9% IV 1,000 ML 75 ML IV CONT (19:52)
[2022-01-05] MEDS: FUROSEMIDE INJ 40 MG/4 ML VIAL 20 MG IV PUSH (19:53)
[2022-01-05] MEDS: ENOXAPARIN 40 MG/0.4 ML SYRINGE SUB-Q (20:22)
--- NOTE | 2022-01-05 23:34 | PC.NURSE ---
01/05/[id number] [place] [facility] [place] [facility] unable to transport patient to [facility].
--- NOTE | 2022-01-05 23:35 | PC.NURSE ---
[facility] unable to transfer patient to [facility].
[2022-01-06] VITALS: BP 111/61; PULSE 55; PULSE 56; RESP 14; TEMP 36.9; O2SAT 98
[2022-01-06] MEDS: methylPREDNISolone SOD SUCC 125 MG VIAL 60 MG IV PUSH (00:23)
[2022-01-06] MEDS: PROPOFOL IV EMULSION 100 ML 25.49 MG IV CONT (00:26)
[2022-01-06 02:00] VITALS: BP 116/65; PULSE 52; PULSE 53; RESP 14; O2SAT 98
[2022-01-06] MEDS: ALBUTEROL SULFATE NEB 2.5 MG/3 ML INH INHALATION (02:15)
[2022-01-06 02:18] VITALS: PULSE 55; RESP 14
[2022-01-06 02:35] VITALS: PULSE 61; O2SAT 97
[2022-01-06] MEDS: MIDAZOLAM 100MG/NS 100ML(*CRX) 100 MG/100 ML BAG 9 MG IV CONT (03:37)
--- NOTE | 2022-01-31 07:30 | P.TS_ITS ---
Transfer Discharge Sum: Prov Provider Date of admission: 01/04/22 10:25 Primary care physician: CHAR FILTER TANK TENDER HEAD PHYSICIAN Admitting clinician: Mitesh Fitzpatrick MD Consults: 01/04/22 Consult to Physician Routine Comment: left voicemail with Dr. Pacheco @[phone](ER,US) Consulting Provider: Umer Pacheco Reason for consultation: seizure Has provider been notified: Yes DS: Admitting Diagnosis Discharge Date 01/06/22 Admitting Diagnosis sob wheeze, tracheal stenosis Transfer Discharge Sum: Med Medications Active and Home Medications: Home Medications epinephrine 0.3 mg/0.3 mL injection, auto-injector 0.3 mg (0.3 mL) IM Q5-15M PRN anaphylaxis #2 ea 01/26/21 [Rx Confirmed 01/04/22] albuterol sulfate 90 mcg/actuation aerosol inhaler 1 - 2 puff inhalation Q4-6H PRN Shortness Of Breath Or Wheezing 01/04/22 [History Confirmed 01/04/22] Transfer Discharge Sum: Hosp Hospital Course Hospital course: Kaylie Schaeffer is a 21 year old female admitted w resp failure and wheezing - admitted to icu and intubated. Hx of multiple intubations for mast cell activation syndrome possibly - nonetheless patient does also have tracheal stenosis. For this reason, the patient was transferred to tertiary center for further evaluation Time Spent with Patient Time attestation: Total time spent providing and/or coordinating transfer services:
== END 2022-01-06 03:57 | disposition short-term general hospital (02) | DRG 133 ==
LOC: ANHED 21:21 → ANHICU 23:53
PROVIDERS: Internal Medicine Critical Care Medicine; Admitting Provider Internal Medicine; Emergency Provider Emergency Medicine; Visit Provider Chiropractor
DX: J96.00 Acute respiratory failure, unspecified whether with hypoxia or hypercapnia (principal); D89.40 Mast cell activation, unspecified; J39.8 Other specified diseases of upper respiratory tract; F44.5 Conversion disorder with seizures or convulsions; F41.9 Anxiety disorder, unspecified; Z20.822 Contact with and (suspected) exposure to COVID-19
CPT/HCPCS: 36415; 36600; 71045; 80053; 82375; 82805; 83050; 85025; 85610; 85730; 94003; 94640; 96365; 96366; 96367; 96368; 96372; 96375; 96376; 99285; C9803; G0378; G0379; J0171; J0330; J1200; J1650; J1940; J2060; J2250; J2405; J2704; J2930; J3010; J7030; U0003; U0005

== ENCOUNTER 2022-02-14 20:16 | Emergency (ER) | payer OTHER, SELFPAY ==
--- NOTE | ~2022-02-14 | XR_ITS ---
XR foot RT min 3V, XR ankle RT min 3V 02/14/2022 20:39 (accession [id number]), 02/14/2022 20:38 (accession [id number]) INDICATION: Right foot and ankle pain PROCEDURE: 4 views right foot and 4 views right ankle COMPARISON: No prior studies for comparison. FINDINGS: Fracture, dislocation or subluxation is not identified. Lisfranc joint intact. The soft tis sues appear within normal limits. No foreign bodies are identified. IMPRESSION: 1: NO ACUTE BONE OR JOINT ABNORMALITY IDENTIFIED. Reviewed, dictated and finalized at location A. O PRODUCER IMPRESSION: 1: NO ACUTE BONE OR JOINT ABNORMALITY IDENTIFIED.
[2022-02-14 20:20] VITALS: BP 110/76; PULSE 97; RESP 18; TEMP 36.7; O2SAT 100
--- NOTE | 2022-02-14 21:11 | ED.LOWEXIN ---
HPI - Extremity Injury (Lower) General Chief Complaint: Extremity Injury, Lower Stated Complaint: right ankle Time Seen by Provider: 02/14/22 21:10 Source: patient Mode of arrival: wheelchair Limitations: no limitations History of Present Illness HPI Narrative: Patient is a 21-year-old female presenting to the emergency department for evaluation of right ankle pain. Patient injured her ankle during an intermural volleyball game when she jumped, landing on the ankle, having it rolled outwards. Patient reports a popping sensation in the right ankle. She reports immediate pain that is worse with movement. Patient reports a small amount of swelling. Pain radiates into her right pinky toe. Patient denies any bruising, laceration or bleeding. Ambulation has been difficult secondary to pain with bearing weight. Related Data Home Medications Medication Instructions Recorded Confirmed albuterol sulfate 90 mcg/actuation 1 - 2 puff inhalation Q4-6H PRN 01/04/22 01/04/22 aerosol inhaler Shortness Of Breath Or Wheezing Allergies Allergy/AdvReac Type Severity Reaction Status Date / Time shellfish derived Allergy Severe Anaphylaxis Verified 02/19/21 21:32 mast cell disorder Allergy Severe Other Uncoded 02/19/21 21:32 Review of Systems Review of Systems: CONSTITUTIONAL: Denies fever CARDIOVASCULAR: Denies chest pain RESPIRATORY: Denies cough or dyspnea. GASTROINTESTINAL: Denies abdominal pain SKIN: Denies rash MUSCULOSKELETAL: Denies back pain, reports right ankle pain NEUROLOGIC: Denies headache PMFSH Past Medical History Medical History Anxiety Mast cell activation syndrome Tracheal stenosis Surgical History Surgical History No pertinent past surgical history Social History Social History Smoking status: Never smoker Second hand tobacco smoke exposure: No Alcohol intake: current Substance use: never Spiritual care concerns: No Exam Narrative: GENERAL: Awake, alert, conversant HEAD: Normocephalic, atraumatic. EYES: PERRLA and EOMI. ENT: Nares clear, no rhinorrhea or epistaxis. Mucous membranes moist. NECK: Supple. CHEST: No respiratory distress, breathing even and non labored HEART: Regular rate, sinus rhythm ABDOMEN:Non distended, non tender EXTREMITIES: Decreased range of motion in right ankle secondary to pain; slight amount of edema, no ecchymoses. DP pulse 2+. Intact distal sensation SKIN: Warm, dry, no rash. NEURO:No focal deficits. Alert and oriented x3 Course Course Emergency Course: GENERAL: Awake, alert, conversant HEAD: Normocephalic, atraumatic. EYES: PERRLA and EOMI. ENT: Nares clear, no rhinorrhea or epistaxis. Mucous membranes moist. NECK: Supple. CHEST: No respiratory distress, breathing even and non labored HEART: Regular rate, sinus rhythm ABDOMEN:Non distended, non tender EXTREMITIES: Normal range of motion. No edema. SKIN: Warm, dry, no rash. NEURO:No focal deficits. Alert and oriented x3 Vital Signs Vital signs: Vital Signs Temperature 36.7 C 02/14/22 20:20 Pulse Rate 97 02/14/22 20:20 Respiratory Rate 18 02/14/22 20:20 Blood Pressure 110/76 02/14/22 20:20 Pulse Oximetry 100 02/14/22 20:20 Temperature 36.7 C 02/14/22 20:20 Pulse Rate 97 02/14/22 20:20 Respiratory Rate 18 02/14/22 20:20 Blood Pressure 110/76 02/14/22 20:20 Pulse Oximetry 100 02/14/22 20:20 MDM - Extremity Injury (Lower) MDM Narrative Medical decision making narrative: Patient presenting for evaluation of right ankle pain, injuring it after jumping mechanism and volleyball. At the time of assessment, ABCs are intact and vital signs are stable. Patient has intact distal sensation, no deformity or ecchymosis. Slight amount of right lateral ankle edema and tenderness on exam. Patient with di
--- NOTE | 2022-02-14 21:39 | PC.NURSE ---
This nurse went to d/c pt from lobby with prescriptions, crutch teaching and mati wrap but no answer when named called at this time. PT now seen in ED lobby or ED lobby bathrooms.
--- NOTE | 2022-02-14 21:52 | PC.NURSE ---
Pt called again for d/c, pt and visitors in family room. Rory wrap applied and INDEXER intact after application. Crutch edacation given and return demo from pt showed understanding no further questions about d/c paperwork.
== END 2022-02-14 21:54 | disposition home or self-care (01) ==
LOC: ANHED 21:30
PROVIDERS: Emergency Provider Emergency Medicine
DX: S93.401A Sprain of unspecified ligament of right ankle, initial encounter (principal); S96.911A Strain of unspecified muscle and tendon at ankle and foot level, right foot, initial encounter; D89.40 Mast cell activation, unspecified; X50.9XXA Other and unspecified overexertion or strenuous movements or postures, initial encounter; Y93.68 Activity, volleyball (beach) (court)
CPT/HCPCS: 73610; 73630; 99283

== ENCOUNTER 2022-02-19 11:22 | Emergency (ER) | payer OTHER, SELFPAY ==
--- NOTE | ~2022-02-19 | US_ITS ---
EXAMINATION: US arterial ankle brachial ind DATE: 02/19/2022 13:45 INDICATION: Cold foot after ankle injury TECHNIQUE: Segmental pressures and plethysmographic and Doppler waveforms of the brachial and lower e xtremity arteries were obtained. COMPARISON: None. FINDINGS: Right and left brachial artery pressures of 1271 mm Hg and 05 mm Hg, respectively, are concordant (no rmal difference <= 30 mmHg). The right ankle-brachial index (GRAY) is 1.03 (normal >= 0.9-1.0). The right great toe-brachial index (TBI) is 0.50 (normal >= 0.65). Arterial Doppler waveforms are biphasic at the right posterior tibial and triphasic at the right dorsalis pedis arteries, both with brisk systolic upstrokes. The left GRAY is 1.09. The left TBI is 0.72. Arterial Doppler waveforms are biphasic with brisk systol ic upstrokes at left posterior tibial artery. Waveform was not recorded for the left dorsalis pedis a rtery. IMPRESSION: 1. Normal right GRAY with mildly decreased TBI. Arterial waveforms with brisk systolic upstrokes are i dentified within the right posterior tibial and dorsalis pedis arteries. 2. Normal left GRAY and TBI. Reviewed, dictated and finalized at location A. ARCH LAB ASSISTANT IMPRESSION: 1. Normal right GRAY with mildly decreased TBI. Arterial waveforms with brisk sy stolic upstrokes are identified within the right posterior tibial and dorsalis pedis arteries. 2. Normal left GRAY and TBI.
--- NOTE | ~2022-02-19 | XR_ITS ---
XR foot RT min 3V DATE: 02/19/2022 11:41 INDICATION: Injury on February 14, 2022. Foot cold. Pain. TECHNIQUE: 4 views COMPARISON: None FINDINGS: No fracture or dislocation, periosteal reaction or bone destruction. Joint spaces are prese rved. No erosive changes. IMPRESSION: Negative Reviewed, dictated and finalized at location B. MENTAL IRON WORKER HELPER IMPRESSION: Negative
[2022-02-19 11:26] VITALS: BP 138/82; PULSE 105; RESP 20; TEMP 36.7; O2SAT 96
--- NOTE | 2022-02-19 12:15 | ED.GENADULT ---
HPI - General Adult General Chief complaint: Extremity Injury, Lower Stated complaint: R foot injury/?cold Time Seen by Provider: 02/19/22 12:03 History of Present Illness HPI narrative: 21-year-old female presenting to the emergency department for evaluation of a cold right foot. Patient states approximate 1 week ago she injured her ankle. Patient had negative x-rays at that time. Patient did have follow-up with her primary care physician today and they were concerned that there was an absent pulse and that the foot was cold. Patient was sent into the ED for evaluation. Related Data Home Medications Medication Instructions Recorded Confirmed albuterol sulfate 90 mcg/actuation 1 - 2 puff inhalation Q4-6H PRN 01/04/22 01/04/22 aerosol inhaler Shortness Of Breath Or Wheezing Allergies Allergy/AdvReac Type Severity Reaction Status Date / Time shellfish derived Allergy Severe Anaphylaxis Verified 02/19/22 12:01 Review of Systems Review of Systems: CONSTITUTIONAL: Denies fever, chills, or sweats. EYES: Denies visual changes, redness, or discharge. ENT: Denies rhinorrhea, congestion, sore throat, or otalgia. CARDIOVASCULAR: Denies chest pain, palpitations, or edema. RESPIRATORY: Denies cough or dyspnea. GASTROINTESTINAL: Denies abdominal pain, nausea, vomiting, or diarrhea. GENITOURINARY: Denies dysuria or hematuria. SKIN: Denies rash or itching. MUSCULOSKELETAL: See HPI NEUROLOGIC: Denies headache, numbness, or weakness. PMFSH Past Medical History Medical History Anxiety Mast cell activation syndrome Tracheal stenosis Surgical History Surgical History No pertinent past surgical history Social History Social History Smoking status: Never smoker Second hand tobacco smoke exposure: No Alcohol intake: current Substance use: never Spiritual care concerns: No Exam Narrative: APPEARANCE: Well appearing, no pain, no distress, well-nourished. HEAD: normocephalic, atraumatic. EYES: PERRLA/EOMI, conjunctivae clear. NOSE: Normal no drainage RESPIRATORY: Airway patent, respirations nonlabored. Clear to auscultation bilaterally, no rales, rhonchi, wheezing. CARDIOVASCULAR: Regular rate and rhythm without murmurs rubs or gallops. ABDOMINAL: Soft, nontender, nondistended, normal bowel sounds MUSCULOSKELETAL: Moves all extremities. Limited range of motion of the right ankle due to pain. Patient also reports decreased ability to move her toes. NEURO: Alert. Cranial nerves II through XII intact. Decreased sensation over the second through fifth toes. SKIN: Warm, dry. Normal Color Course Course Emergency Course: Patient had a normal right GRAY mildly decreased TBI. Patient had strong cap refill and had normal pulse oxes on all toes. Toes remained acyanotic. X-ray showed no acute fracture or dislocation. Patient does have some swelling and ecchymosis over the lateral aspect of the foot. Close may be due to the patient not using the foot and keeping the foot and compression. Numbness is due to possible peripheral nerve irritation due to the ecchymosis and swelling. Patient was updated on the rest of the work-up and encouraged of close follow-up with orthopedics regarding the initial injury that is still uncomfortable. Vital Signs Vital signs: Vital Signs Temperature 98.0 F 02/19/22 11:26 Pulse Rate 105 H 02/19/22 11:26 Respiratory Rate 20 02/19/22 11:26 Blood Pressure 138/82 02/19/22 11:26 Pulse Oximetry 96 02/19/22 11:26 Temperature 98.0 F 02/19/22 11:26 Pulse Rate 105 H 02/19/22 11:26 Respiratory Rate 20 02/19/22 11:26 Blood Pressure 138/82 02/19/22 11:26 Pulse Oximetry 96 02/19/22 11:26 Medical Decision Making Vital Signs Vital Signs: Vital Signs Temperature 98.0 F 02/19/22 11:26 Pulse Rate 10
== END 2022-02-19 14:46 | disposition home or self-care (01) ==
PROVIDERS: Emergency Provider Emergency Medicine
DX: M79.671 Pain in right foot (principal); F41.9 Anxiety disorder, unspecified
CPT/HCPCS: 73630; 93922; 99284

== ENCOUNTER 2022-05-14 15:51 | Observation (INO) | payer OTHER, SELFPAY ==
[2022-05-14] VITALS (39 sets, daily range): BP systolic 122–162; BP diastolic 62–88; PULSE 89–134; RESP 9–30; TEMP 36.4–37.6; O2SAT 96–100; BMI 34.4
--- NOTE | ~2022-05-14 | CT_ITS ---
EXAMINATION: CT soft tissue neck wo con DATE: 05/14/2022 20:40 INDICATION: TECHNIQUE: Computed tomography (CT) of the neck was performed with 75 mL Omnipaque-350 intravenous co ntrast. The dose-length product was 611.91 mGy-cm. COMPARISON: 11/13/2020 FINDINGS: The thyroid gland is unremarkable. The submandibular and parotid glands are symmetric. Soft tissue swelling involving the adenoids and bilateral palatine tonsils. There is bilateral anterior and poste rior cervical chain lymphadenopathy. The superior mediastinum is unremarkable. The airway is unrem arkable. Parapharyngeal and pre-glottic fat planes are preserved. The orbits are unremarkable. Visualized sinuses and mastoid air cells are well aerated. Visualized lung parenchyma clear. There is no significant cervical spondylosis. IMPRESSION: 1. Bilateral adenoid and palatine tonsil swelling. 2. Bilateral anterior and posterior cervical chain lymphadenopathy. Reviewed, dictated and finalized at location [facility]
[2022-05-14] MEDS: EPINEPHrine HCL INJ 1 MG/ML AMPUL 0.3 MG IM (15:59)
--- NOTE | 2022-05-14 16:04 | ECG_ITS ---
Measurements Intervals [place] Rate: 134 P: 58 [place]: 134 QRS: 59 QRSD: 86 T: 20 QT: 374 QTc: 559 Interpretive Statements SINUS TACHYCARDIA NONSPECIFIC ST & T-WAVE ABNORMALITY- ANTEROLAT/INF LEADS BASELINE ARTIFACT- I, II, III, AVR, AVL, AVF, V6 ABNORMAL ECG COMPARED TO ECG 12/03/2021 18:40:11 NO SIGNIFICANT CHANGES Electronically Signed On 05-15-2022 6:20:30 [employer] by Eloy Arce D.O.
--- NOTE | 2022-05-14 16:04 | ED.ALLEREA ---
HPI - Allergic Reaction General Chief complaint: Allergic Reaction Stated complaint: difficulty breathing Time Seen by Provider: 05/14/22 16:11 History of Present Illness HPI narrative: Patient is a 21-year-old female with a history of anaphylaxis to shellfish, mast cell activation syndrome presenting with respiratory distress. Patient states that she thinks that she was exposed to shellfish earlier today. Approximately 20 minutes prior to arrival she developed shortness of breath and wheezing. She gave herself a dose of IM epi with improvement in her symptoms temporarily. States that her symptoms feel like they are starting to come back. States that she has been intubated 11-13 times in the past. Also reports some nausea. States that her heart feels like it is racing but no chest pain. No vomiting or diarrhea. No rashes. Related Data Home Medications Medication Instructions Recorded Confirmed albuterol sulfate 90 mcg/actuation 1 - 2 puff inhalation Q4-6H PRN 01/04/22 05/14/22 aerosol inhaler Shortness Of Breath Or Wheezing cromolyn 100 mg/5 mL oral 100 mg PO TIDHS 05/14/22 05/15/22 concentrate famotidine 20 mg tablet (Pepcid) 20 mg PO DAILY 05/14/22 05/14/22 fexofenadine 180 mg tablet 180 mg PO BID 05/14/22 05/14/22 montelukast 10 mg tablet 10 mg PO DAILY 05/14/22 05/14/22 (Singulair) omalizumab 150 mg/mL subcutaneous See Rx Instructions .Route .COMPLEX 05/14/22 05/14/22 syringe (Xolair) Allergies Allergy/AdvReac Type Severity Reaction Status Date / Time shellfish derived Allergy Severe Anaphylaxis Verified 02/22/22 09:21 Review of Systems Review of Systems: All systems reviewed & are unremarkable except as noted in HPI and below PMFSH Past Medical History Medical History Anxiety 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 Surgical History Surgical History History of removal of cyst Hand. Family History Family History Other Family history non-contributory Social History Social History Social History: Surrogate medical decision maker: Krystin (mother) or Luis (sister) Maksim. Code status: Full code. Smoking status: Never smoker Second hand tobacco smoke exposure: No Alcohol intake: current Drinks per week: 1 Substance use: never Lack of Transportation: No Lack of Food: Never True Current Housing: I Have Housing Concerned About Future Housing: No Difficulty Paying Gas/Electric Bills: No Difficulty Paying for Meds: No Currently Unemployed: No Education: High School Diploma/GED Difficulty w/ Childcare or Family Care: No Additional living arrangements comments: Lives in an apartment. 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 Spiritual care concerns: No Exam Narrative: GENERAL: Moderate distress, tachypneic HEAD: Normocephalic, atraumatic. EYES: PERRLA and EOMI. ENT: Nares clear, no rhinorrhea or epistaxis. Mucous membranes dry . NECK: Supple. CHEST: Lungs are clear bilaterally, no wheezing, no real stridor either, patient is tachypneic but saturating 100% on room air HEART: Regular rate and rhythm. No murmur heard. Normal peripheral pulses. ABDOMEN: Soft, nontender, nondistended, normal active bowel sounds. EXTREMITIES: Normal range of motion. No edema. SKIN: Warm, dry, no rash. NEURO: No focal deficits. Alert and oriented x3. PSYCH: Normal mood and affect. Course Vital Signs Vital signs: Vital Signs Respiratory Rate 22 H 05/14/22 15:59 Temperature 98.2 F 05/15/22 07:50 Pulse Rate 79 05/15/22 12:00 Respiratory Rate 16 05/15/22 11:52 Blood Pressure 113/64 05/15/22 11:52 Pulse Oximetry 100 05/15/22 11:52
[2022-05-14] MEDS: ALBUTEROL SULFATE NEB 2.5 MG/3 ML INH 10 MG INHALATION (16:05)
[2022-05-14] MEDS: diphenhydrAMINE HCl INJ 50 MG/ML VIAL IV PUSH (16:07)
[2022-05-14] MEDS: methylPREDNISolone SOD SUCC 125 MG VIAL IV PUSH (16:07)
[2022-05-14] MEDS: FAMOTIDINE 20 MG/2 ML VIAL IV PUSH (16:07)
[2022-05-14] MEDS: SODIUM CHLORIDE 0.9% IV 1,000 ML 999 ML IV CONT ×2 (16:42)
[2022-05-14 16:50] LABS: Alveolar/Arterial O2 Gradient 21.3 mmHg; Base Excess ABG -5.6 mEq/l (+/-2.0); Fractional Inspired Oxygen 21 %; HCO3 ABG 13.7 mEq/l (22.0-26.0); Oxygen Content ABG 18.5 %vol (16.0-22.0); Oxygen Saturation ABG 98.7 % (95.0-100.0); Oxyhemoglobin 97.3 % THb (90.0-100.0); PO2 ABG 109.6 mmHg (80.0-100.0); PO2 FiO2 Ratio Arterial Blood 5.22 %; Total Hemoglobin 13.4 g/dL (12.0-18.0)
[2022-05-14 16:52] LABS: Modified Allen's Test Pass; PCO2 ABG 15.7 mmHg (35.0-45.0); Site Drawn RIGHT RADIAL; pH ABG 7.558 (7.350-7.450)
[2022-05-14 16:54] LABS: Device ROOM AIR
[2022-05-14] MEDS: ONDANSETRON INJ 4 MG/2 ML VIAL IV PUSH (17:04)
[2022-05-14] MEDS: LORazepam INJ (*CRX) 2 MG/ML VIAL 1 MG IV PUSH ×2 (17:08→18:43)
--- NOTE | 2022-05-14 18:07 | PC.NURSE ---
Pt continuously clearing her throat. Pt is able to slow breathing down when instructed to. SPO2 100% on room air.
--- NOTE | 2022-05-14 19:00 | PC.NURSE ---
Assumed care of pt. at this time. Report from DAVID Foss
[2022-05-14 19:21] LABS: Influenza A QL RT-PCR Negative (Negative); Influenza B QL RT-PCR Negative (Negative); RSV RNA, RT-PCR Negative (Negative); SARS-CoV-2 RNA PCR Negative
[2022-05-14 19:21] LABS: Basophils Percent Auto 0.2 % (0.2-1.2); Hematocrit 37.4 % (37.0-47.0); Hemoglobin 12.2 g/dL (12.0-15.0); Immature Granulocyte Absolute 0.08 K/mm3 (0.00-0.031); Immature Granulocyte Percent A 0.6 % (0-0.5); Lymphocytes Absolute Auto 0.61 K/mm3 (0.9-3.2); Lymphocytes Percent Auto 4.3 % (18.3-44.2); Mean Corpuscular HGB Conc 32.6 g/dl (32-36); Mean Corpuscular Hemoglobin 29.5 pg (26-34); Mean Corpuscular Volume 90.6 fl (80-100); Monocytes Absolute Auto 0.2 K/mm3 (0.1-0.6); Monocytes Percent Auto 1.4 % (2.6-8.5); Neutrophils Absolute Auto 13.3 K/mm3 (1.3-6.7); Neutrophils Percent Auto 93.5 % (45.5-73.1); Platelet Count Result 372 k/mm3 (150-375); Red Blood Count 4.13 M/mm3 (4.2-5.4); White Blood Count 14.2 K/mm3 (4.5-10.0)
[2022-05-14 19:26] LABS: Alanine Aminotransferase 35 U/L (6-35); Albumin Level 4.5 g/dL (3.5-5.1); Alkaline Phosphatase 122 U/L (38-126); Anion Gap 12 mmol/L (8-16); Aspartate Amino Transferase 30 U/L (14-36); Bilirubin,Total 0.4 mg/dL (0.2-1.3); Blood Urea Nitrogen 10 mg/dL (7-17); Calcium 8.9 mg/dL (8.4-10.2); Carbon Dioxide 17 mmol/L (22-30); Chloride 111 mmol/L (98-107); Estimated CRCL calculation 145 ml/min; Estimated Glomerular Filt Rate > 60; Glucose 130 mg/dL (65-110); Potassium 3.3 mmol/L (3.4-5.0); Sodium 140 mmol/L (137-145)
[2022-05-14 19:29] LABS: Lactic Acid Reflex 5.5 mmol/L (0.7-2.0)
[2022-05-14 19:37] LABS: INR 1.1; Prothrombin Time 13.4 Seconds (11.1-14.7)
[2022-05-14 19:38] LABS: Partial Thromboplastin Time 23.5 SECONDS (22.3-36.8)
--- NOTE | 2022-05-14 19:45 | PM.IMHP ---
H&P: HPI History of Present Illness Date/Time: 05/14/22 19:45 Chief Complaint: Lightheaded, short of breath. Narrative: This is a pleasant 21-year-old female with history of mast cell activation syndrome, anxiety, depression, and respiratory distress leading to multiple intubations and subsequent tracheal stenosis requiring dilation x2 in December and February 2022 who presented to the emergency department from home for evaluation of lightheadedness and shortness of breath. Patient provides the following history. She felt fine when she went to school today. At lunch time she took the bus back to her apartment and went walking up to her apartment she started to feel lightheaded and short of breath with a sense of impending doom. A person sitting next her on the bus was eating [place] food and she wonders if it may have contained shrimp, of which she is severely allergic. She went inside and tried to rest but her symptoms persisted and she also developed a diffuse but faint rash which sounds like perhaps mottling of the hands and feet, abdominal pain, and she had 1 episode of emesis. She took an extra Pepcid and Benadryl but her symptoms continued and she felt increasingly short of breath and wheezy and she came in for evaluation. Blood pressure has been stable since arrival and fact it was 162/78 on arrival. She was tachycardic and tachypneic on arrival and seemed to be hyperventilating. SpO2 has remained in the high 90s to 100 room air and has not dropped. ABG on arrival showed a pH of 7.558, pCO2 15.7, PO2 109.6, bicarb 13.7. No stridor was noted on exam and with stable vital signs it was not felt that she was having an anaphylactic reaction. She was given some Ativan with improvement in her symptoms and vital signs. She was also given famotidine, epinephrine, and diphenhydramine, and IM epinephrine on arrival. Her labs were significant for WBC of 14.2, hemoglobin 12.2, sodium 140, potassium 3.3, chloride 111, carbon dioxide 17, lactic acid 5.5, normal LFTs. Repeat ABG lactic acid level this evening were both essentially normal. Given her history of anaphylaxis, mast cell activation syndrome, respiratory distress, and tracheal stenosis she is being admitted to the ICU for close monitoring as she continues to have feelings of impending doom. She does admit to an increase in stress recently and that seems to cause increasing issues with her mast cell activation syndrome. Review of Systems Review of Systems: Twelve systems were reviewed and are negative except for as per HPI. [facility] Past Medical History Medical History (Updated 05/15/22 @ 00:38 by Blanka Lawrence PA-C) Anxiety 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 Surgical History Surgical History (Updated 05/15/22 @ 00:33 by Blanka Lawrence PA-C) History of removal of cyst Hand. Family History Family History (Updated 05/15/22 @ 00:34 by Blanka Lawrence PA-C) Other Family history non-contributory Social History Social History (Updated 05/15/22 @ 00:35 by Blanka Lawrence PA-C) Social History: Surrogate medical decision maker: Krystin (mother) or Luis (sister) Maksim. Code status: Full code. Smoking status: Never smoker Second hand tobacco smoke exposure: No Alcohol intake: current Drinks per week: 1 Substance use: never Lack of Transportation: No Lack of Food: Never True Current Housing: I Have Housing Concerned About Future Housing: No Difficulty Paying Gas/Electric Bills: No Difficulty Paying for Meds: No Currently Unemployed: No Education: High School Diploma/GED Difficulty w/ Childcare or Family Care: No Additional living arrangements comments: Lives in an apartment. 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 Spiritual care concerns: No Meds Home Medications and Allergies Home Medications Medicati
[2022-05-14 20:27] LABS: Alveolar/Arterial O2 Gradient 31.8 mmHg; Base Excess ABG -5.6 mEq/l (+/-2.0); Fractional Inspired Oxygen 21 %; HCO3 ABG 18.2 mEq/l (22.0-26.0); Oxygen Content ABG 16.4 %vol (16.0-22.0); Oxygen Saturation ABG 96.1 % (95.0-100.0); Oxyhemoglobin 94.7 % THb (90.0-100.0); PCO2 ABG 30.6 mmHg (35.0-45.0); PO2 ABG 81.3 mmHg (80.0-100.0); PO2 FiO2 Ratio Arterial Blood 3.87 %; Total Hemoglobin 12.3 g/dL (12.0-18.0); pH ABG 7.393 (7.350-7.450)
[2022-05-14 20:28] LABS: Device ROOM AIR; Modified Allen's Test Pass; Site Drawn RIGHT RADIAL
[2022-05-14 22:12] LABS: Reflex Lactic Acid Yes or No Add Lactic
--- NOTE | 2022-05-14 22:28 | ADMGEN ---
This patient, Kaylie Schaeffer, was admitted to Intensive Care Unit-2. Patient/family oriented to hospital policies and general routines including ID bracelet, bed and alarms, visiting hours, pain management, procedures, bathroom and other care routines, personal items, smoking policy, room service/diet, and visiting hours. Information on how to activate the Rapid Response Team has been discussed. Patient/Family are encouraged to report perceived risks to care and to ask questions if they do not understand what they are told or what they should do.
[2022-05-14 23:17] LABS: Lactic Acid 1.3 mmol/L (0.7-2.0)
[2022-05-15] VITALS (9 sets, daily range): BP systolic 108–130; BP diastolic 56–94; PULSE 65–110; RESP 16–21; TEMP 36.5–36.8; O2SAT 98–100
[2022-05-15] MEDS: DEXAMETHASONE SOD PHOS INJ 4 MG/ML VIAL IV PUSH ×2 (02:00→05:59)
[2022-05-15] MEDS: POTASSIUM CHLORIDE 20 MEQ TABLET PO (02:00)
[2022-05-15 07:59] LABS: Strep Group A RT-PCR NOT DETECTED (Negative)
--- NOTE | 2022-05-15 08:59 | WPDCNINT ---
Assessment and Plan Assessment and plan (1) Allergic reaction: Code(s): T78.40XA - Allergy, unspecified, initial encounter Status: Acute Assessment and Plan: Is hard to know whether patient had allergic reaction or had anxiety attack. Does have history of mast cell activation syndrome She did receive epinephrine Benadryl Pepcid and Solu-Medrol and her symptoms have now improved I will continue her home doses of Singulair cromolyn, Claritin and Pepcid Continue p.r.n. Benadryl I will switch IV dexamethasone to p.o. prednisone taper (2) Tracheal stenosis: Code(s): J39.8 - Other specified diseases of upper respiratory tract Status: Acute Assessment and Plan: Status post balloon dilation and laser treatment by ENT at [facility] in December and February CT neck done in ED as below ENT has been consulted and will evaluate the patient No stridor, wheezing or respiratory distress on exam (3) Respiratory distress: Code(s): R06.03 - Acute respiratory distress Status: Acute Assessment and Plan: Saturating 100% on room air with no respiratory distress at this time (4) Cervical lymphadenopathy: Code(s): R59.0 - Localized enlarged lymph nodes Status: Acute Assessment and Plan: Soft Tissue Neck CT? 05/14/22 20:57 IMPRESSION: 1. Bilateral adenoid and palatine tonsil swelling. 2. Bilateral anterior and posterior cervical chain lymphadenopathy. She had recent viral pharyngitis. She states that his symptoms had completely resolved and she was tested for COVID , influenza and strep at that time. She was again tested for influenza RSV COVID and strep in the ED and was negative Plan DVT prophylaxis -SCDs Stress ulcer prophylaxis -patient is on Pepcid Transfer out of ICU today Eligibility Examiner Consult Note Consult date: 05/15/22 Reason for consult: Allergic reaction HPI: Kaylie Schaeffer is a 21 year old female with past medical history of mast cell activation syndrome, anxiety, depression, and respiratory distress leading to multiple intubations and subsequent tracheal stenosis requiring dilation x2 in December and February [address] [facility] presented yesterday with chief complaint of shortness of breath. Patient states that she was at a baseline yesterday at school when she ate lunch with chicken and rice around noon later around 3:00 p.m. when she was walking to her apartment she started noticing nausea and she felt swelling in her throat. She states she took her p.o. medications that she was supposed to take as she felt that her mast cell activation symptoms were returning. The symptoms did not improved and she continued to felt nauseous and vomited and also felt her throat closing she took epinephrine injection and then presented to ED. as per ED note she reported shortness of breath and wheezing to ED physician but did not report similar complaints to me this morning. She was treated for possible anaphylactic reaction with steroids epinephrine Benadryl and Pepcid along with IV fluids. Objectively patient was hypertensive tachycardic but saturating 100% on room air. She also did not had any stridor or wheezing on exam. His CT of the neck was done. ENT was consulted. Admitted to ICU for closer observation due to possibility of airway compromise. Patient was continued on IV dexamethasone and admitted to ICU. This morning when I went to see the patient she was talking to her sister. Patient was laughing and joking and had normal speech she. She told me she feels better and her nausea vomiting has resolved. He still feels some irritation in her throat but the swelling heart that she fell yesterday and has resolved. She does not feel she short of breath or working hard to breathe. She denied any fever cough chest pain nausea vomiting abdominal pain diarrhea. She states she was diagnosed with sore throat 2 weeks ago and was tested for strep C
[2022-05-15 09:08] LABS: Hematocrit 38.2 % (37.0-47.0); Hemoglobin 12.7 g/dL (12.0-15.0); Mean Corpuscular HGB Conc 33.2 g/dl (32-36); Mean Corpuscular Hemoglobin 29.3 pg (26-34); Mean Corpuscular Volume 88.2 fl (80-100); Mean Platelet Volume 9.9 fl (7.4-10.4); Platelet Count Result 383 k/mm3 (150-375); Red Blood Count 4.33 M/mm3 (4.2-5.4); Red Cell Distribution Width 13.2 % (11.5-14.5); White Blood Count 12.2 K/mm3 (4.5-10.0)
[2022-05-15 09:17] LABS: Alanine Aminotransferase 22 U/L (6-35); Albumin Level 4.6 g/dL (3.5-5.1); Alkaline Phosphatase 109 U/L (38-126); Anion Gap 7 mmol/L (8-16); Aspartate Amino Transferase 24 U/L (14-36); Bilirubin,Total 0.6 mg/dL (0.2-1.3); Blood Urea Nitrogen 8 mg/dL (7-17); Calcium 9.1 mg/dL (8.4-10.2); Carbon Dioxide 21 mmol/L (22-30); Chloride 106 mmol/L (98-107); Estimated CRCL calculation 174 ml/min; Estimated Glomerular Filt Rate > 60; Glucose 126 mg/dL (65-110); Magnesium 2.2 mg/dL (1.6-2.3); Potassium 4.1 mmol/L (3.4-5.0); Sodium 134 mmol/L (137-145)
[2022-05-15] MEDS: LORATADINE 10 MG TABLET PO (09:27)
[2022-05-15] MEDS: MONTELUKAST SODIUM 10 MG TABLET PO (09:27)
[2022-05-15] MEDS: FAMOTIDINE 20 MG TABLET PO (09:27)
--- NOTE | 2022-05-15 10:11 | PM.IMPN ---
Progress Note: A&P Assessment and Plan (1) Allergic reaction: Code(s): T78.40XA - Allergy, unspecified, initial encounter Status: Acute Assessment and Plan: Patient presents with SOB: allergic reaction vs anxiety attack. She does have history of mast cell activation syndrome and tracheal stenosis. She received epinephrine, Benadryl, Pepcid, and Solu-Medrol. Her symptoms have now improved. Lungs clear. CT showing bilaeral Adenoid and palatine tonsil swelling as well as bilateral anterior and posterior cervical chain lymphadenopathy. No stridor or wheezing appreciated. No chest x-ray listed. UPT negative in ED. Rapid strept, RSV, COVID, influenza negative. Continue her home doses of Singulair cromolyn, Claritin and Pepcid. Continue p.r.n. Benadryl. IV dexamethasone was changed to prednisone taper. ENT consulted. Abx remain on hold (2) Tracheal stenosis: Code(s): J39.8 - Other specified diseases of upper respiratory tract Status: Acute Assessment and Plan: Patient has a hx of tracheal stenosis status post balloon dilation and laser treatment by ENT at [facility] in December and February. Lungs clear today. CT neck done in ED as above. ENT consulted and will evaluate the patient. (3) Respiratory distress: Code(s): R06.03 - Acute respiratory distress Status: Acute Assessment and Plan: Presents with SOB with ABG showing respiratory alkalosis. She is SpO2 100% on room air with no respiratory distress at this time. Follow (4) Cervical lymphadenopathy: Code(s): R59.0 - Localized enlarged lymph nodes Status: Acute Assessment and Plan: CT as mentioned above. She did have a recent viral pharyngitis. COVID, RSV, Influneza, Strept negative. She has mild sore throat now. Symptomatic care. Plan DVT prophylaxis -SCDs Stress ulcer prophylaxis -patient is on Pepcid Full COde Subjective Date/time seen: 05/15/22 10:11 Interval history: 21yo female with mast cell activation, tracheal stenosis (s/p dilation x2) and anxiety here for SOB. Assuming care. Chart reviewed. Patient feels well today. Still feels slightly short of breath but no chest pain or abdominal pain. She does complain of sore throat Exam Narrative: AF 108/94 76 18 99% ra Gen - NARD Chest - CTA bilaterally, nml RR CV - RRR S1/S2. telemetry showing no significant dysrhythmias. Abd - Soft, NT/ND, Positive BS Ext - No pedal edema Neuro - Alert and oriented. Nonfocal exam. Psych - Nml mood and affect Skin - Warm and dry Objective Data Vital Signs Vital Signs: Vital Signs - 24 hr 05/14/22 16:01 05/14/22 16:05 05/14/22 16:00 Temperature 99.6 F Pulse Rate 127 H 107 H Respiratory Rate 28 H 22 H Blood Pressure 162/78 H Pulse Oximetry 100 100 Oxygen Delivery Room Air Room Air 05/14/22 15:59 05/14/22 16:00 05/14/22 16:05 Temperature Pulse Rate 134 H 120 H Respiratory Rate 22 H 22 H 29 H Blood Pressure 162/78 H Pulse Oximetry 100 100 Oxygen Delivery 05/14/22 16:15 05/14/22 16:17 05/14/22 16:30 Temperature Pulse Rate 111 H 116 H 119 H Respiratory Rate 21 H 13 15 Blood Pressure 144/63 H Pulse Oximetry Oxygen Delivery 05/14/22 16:32 05/14/22 16:40 05/14/22 16:33 Temperature Pulse Rate 126 H 114 H 123 H Respiratory Rate 13 22 H 9 L Blood Pressure 130/73 Pulse Oximetry Oxygen Delivery 05/14/22 16:45 05/14/22 16:47 05/14/22 17:00 Temperature Pulse Rate 132 H 112 H 114 H Respiratory Rate 17 24 H 21 H Blood Pressure 140/83 Pulse Oximetry Oxygen Delivery 05/14/22 17:02 05/14/22 17:03 05/14/22 17:15 Temperature Pulse Rate 110 H 104 H 117 H Respiratory Rate 20 18 12 Blood Pressure Pulse Oximetry 99 100 Oxygen Delivery 05/14/22 17:17 05/14/22 17:30 05/14/22 17:32 Temperature Pulse Rate 96 103 H 112 H Respiratory Rate 14 19 14 Blood Pressure 142/62 H
--- NOTE | 2022-05-15 11:28 | PM.DS ---
DS: Admitting Diagnosis Discharge Date 05/15/22 Admitting Diagnosis Shortness of breath DS: Discharge Diagnosis Discharge Diagnosis (1) Allergic reaction: Code(s): T78.40XA - Allergy, unspecified, initial encounter Status: Acute (2) Tracheal stenosis: Code(s): J39.8 - Other specified diseases of upper respiratory tract Status: Acute (3) Respiratory distress: Code(s): R06.03 - Acute respiratory distress Status: Acute (4) Cervical lymphadenopathy: Code(s): R59.0 - Localized enlarged lymph nodes Status: Acute DS: Summary Hospital Course Reason for hospitalization: 21yo female with mast cell activation, tracheal stenosis (s/p dilation x2) and anxiety here for SOB. Please see H&P for details. Hospital Course: Patient presents with SOB: allergic reaction vs anxiety attack. She does have history of mast cell activation syndrome and tracheal stenosis. She received epinephrine, Benadryl, Pepcid, and Solu-Medrol. Her symptoms have now improved. Lungs clear.? CT showing bilateral?adenoid and palatine tonsil swelling as well as bilateral anterior and posterior cervical chain lymphadenopathy.? No stridor or wheezing appreciated. No chest x-ray listed. UPT negative in ED. Rapid strep, RSV, COVID, influenza negative. We continued her home doses of Singulair cromolyn, Claritin and Pepcid. IV dexamethasone started and was changed to prednisone taper. ENT was consulted but [place] wished discharge to follow up with her own ENT. Discussed with recruiting specialist who felt she was safe for discharge. Patient has a hx of tracheal stenosis status post balloon dilation and laser treatment by ENT at [facility] in December and February. [place] can follow up with her ENT after discharge. She overall did well and was able to be discharged on 05/15/22 Status at Discharge Cognitive/behavioral status at discharge: Stable Time Spent with Patient Time attestation: Total time spent providing and/or coordinating discharge services: 38 minutes Time spent: Greater than 30 minutes Exam Narrative: AF 108/94 76 18 99% ra Gen - NARD Chest - CTA bilaterally, nml RR CV - RRR S1/S2. telemetry showing no significant dysrhythmias. Abd - Soft, NT/ND, Positive BS Ext - No pedal edema Neuro - Alert and oriented. Nonfocal exam. Psych - Nml mood and affect Skin - Warm and dry DS: Data Data Completed and Pending Labs on day of discharge: Labs from last 24 hours 05/15/22 05/15/22 05/15/22 08:59 08:59 05:58 WBC 12.2 H RBC 4.33 Hgb 12.7 Hct 38.2 MCV 88.2 MCH 29.3 MCHC 33.2 RDW 13.2 Plt Count 383 H MPV 9.9 Immature Gran % (Auto) Neut % (Auto) Lymph % (Auto) [place] % (Auto) Eos % (Auto) Baso % (Auto) Lymph # (Auto) [place] # (Auto) Eos # (Auto) Baso # (Auto) Abs Immat Gran (auto) Absolute Neuts (auto) Absolute Nucleated RBC Nucleated RBC % PT INR APTT Puncture Site ABG pH ABG pCO2 ABG pO2 ABG PO2/FiO2 Ratio ABG HCO3 ABG O2 Saturation ABG O2 Content ABG Base Excess A-a Gradient Oxyhemoglobin Total Hemoglobin O2 Delivery Device O2 Liters/Min FiO2 Sodium 134 L Potassium 4.1 Chloride 106 Carbon Dioxide 21 L Anion Gap 7 L BUN 8 Creatinine 0.60 L Estim Creat Clear Calc 174 Estimated GFR > 60 Glucose 126 H Lactic Acid Calcium 9.1 Magnesium 2.2 Total Bilirubin 0.6 AST 24 ALT 22 Alkaline Phosphatase 109 Total Protein 8.0 Albumin 4.6 Influenza A (RT-PCR) Influenza B (RT-PCR) RSV (RT-PCR) SARS-CoV-2 RNA (RT-PCR) Group A Strep (PCR) Not detected Grp A Beta Strep Ag Ref Lab Test Name Ref Lab Test Result 05/15/22 05/14/22 05/14/22 05:58 22:40 20:15 WBC RBC Hgb Hct MCV MCH MCHC RDW Plt Count MPV Immature Gran % (
[2022-05-15] MEDS: predniSONE 10 MG TABLET 40 MG PO (12:03)
--- NOTE | 2022-05-15 14:25 | PCCCNOTE ---
On 05/15/22, the student, [Rosemarie Marsh ], provided care and completed [facility] documentation on this patient. I have reviewed the student's documentation and agree with the findings.
== END 2022-05-15 12:14 | disposition home or self-care (01) ==
LOC: ANHED 17:00 → ANHICU 05-15 05:17
PROVIDERS: Internal Medicine; Physician Assistant; Admitting Provider Internal Medicine; Emergency Provider Emergency Medicine; Visit Provider Internal Medicine
DX: T78.40XA Allergy, unspecified, initial encounter (principal); J39.8 Other specified diseases of upper respiratory tract; R06.03 Acute respiratory distress; R59.0 Localized enlarged lymph nodes; E87.3 Alkalosis; E87.20 Acidosis, unspecified; E87.6 Hypokalemia; D89.40 Mast cell activation, unspecified; F41.9 Anxiety disorder, unspecified; R00.0 Tachycardia, unspecified; R06.4 Hyperventilation; R21 Rash and other nonspecific skin eruption; F32.A Depression, unspecified; F10.90 Alcohol use, unspecified, uncomplicated; R94.31 Abnormal electrocardiogram [ECG] [EKG]; Z20.822 Contact with and (suspected) exposure to COVID-19; Z79.1 Long term (current) use of non-steroidal anti-inflammatories (NSAID); Z79.52 Long term (current) use of systemic steroids; Z79.899 Other long term (current) drug therapy
CPT/HCPCS: 36415; 36600; 70490; 80053; 81025; 82805; 83520; 83605; 83735; 85025; 85027; 85610; 85730; 87637; 87651; 93005; 94640; 96361; 96372; 96374; 96375; 96376; 99285; A9270; G0378; J0171; J1100; J1200; J2060; J2405; J2930; J7030; J7512

== ENCOUNTER 2022-12-13 22:03 | Emergency (ER) | payer OTHER, SELFPAY ==
[2022-12-13 22:05] VITALS: BP 136/95; PULSE 118; RESP 28; TEMP 36.8; O2SAT 100
[2022-12-13 22:48] VITALS: PULSE 84; RESP 23
[2022-12-13] MEDS: ALBUTEROL SULFATE NEB 2.5 MG/3 ML INH INHALATION (22:48)
[2022-12-13] MEDS: methylPREDNISolone SOD SUCC 125 MG VIAL IV PUSH (23:00)
[2022-12-13] MEDS: diphenhydrAMINE HCl INJ 50 MG/ML VIAL IV PUSH (23:02)
[2022-12-13] MEDS: FAMOTIDINE 20 MG/2 ML VIAL 40 MG IV PUSH (23:05)
[2022-12-13] MEDS: ONDANSETRON INJ 4 MG/2 ML VIAL IV PUSH (23:06)
[2022-12-13] MEDS: SODIUM CHLORIDE 0.9% IV 1,000 ML 999 ML IV CONT (23:09)
--- NOTE | 2022-12-13 23:11 | ED.ALLEREA ---
HPI - Allergic Reaction General Chief complaint: Allergic Reaction Stated complaint: allergic reaction Time Seen by Provider: 12/13/22 22:26 History of Present Illness HPI narrative: This is a 22-year-old female, with past history of tracheal stenosis status post balloon dilation, allergic reactions and anxiety who presents emergency department with concern for allergic reaction. The patient states she is allergic to shellfish. At approximately 940 this evening she was exposed to the smell of a person's crab and shrimp dinner. She reports cough and mild shortness of breath for which she gave herself a dose of IM epinephrine. She also complains of some nausea. Related Data Home Medications Medication Instructions Recorded Confirmed albuterol sulfate 90 mcg/actuation 1 - 2 puff inhalation Q4-6H PRN 01/04/22 05/14/22 aerosol inhaler Shortness Of Breath Or Wheezing cromolyn 100 mg/5 mL oral 100 mg PO TIDHS 05/14/22 05/15/22 concentrate famotidine 20 mg tablet (Pepcid) 20 mg PO DAILY 05/14/22 05/14/22 fexofenadine 180 mg tablet 180 mg PO BID 05/14/22 05/14/22 montelukast 10 mg tablet 10 mg PO DAILY 05/14/22 05/14/22 (Singulair) omalizumab 150 mg/mL subcutaneous See Rx Instructions .Route .COMPLEX 05/14/22 05/14/22 syringe (Xolair) Allergies Allergy/AdvReac Type Severity Reaction Status Date / Time shellfish derived Allergy Severe Anaphylaxis Verified 02/22/22 09:21 Review of Systems Review of Systems: CONSTITUTIONAL: Denies fever, chills, or sweats. CARDIOVASCULAR: Denies chest pain, palpitations, or edema. RESPIRATORY: Cough denies dyspnea. GASTROINTESTINAL: Nausea and nonbloody vomiting denies abdominal pain, or diarrhea. GENITOURINARY: Denies dysuria or hematuria. SKIN: Denies rash or itching. MUSCULOSKELETAL: Denies back pain, joint pain, or myalgia. NEUROLOGIC: Denies headache, numbness, dizziness, or weakness. PSYCHIATRIC: Denies anxiety or depression. [facility] Past Medical History Medical History Anxiety 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 Surgical History Surgical History History of removal of cyst Hand. Family History Family History Other Family history non-contributory Social History Social History Social History: Surrogate medical decision maker: Krystin (mother) or Luis (sister) Maksim. Code status: Full code. Smoking status: Never smoker Second hand tobacco smoke exposure: No Alcohol intake: current Drinks per week: 1 Substance use: never Lack of Transportation: No Lack of Food: Never True Current Housing: I Have Housing Concerned About Future Housing: No Difficulty Paying Gas/Electric Bills: No Difficulty Paying for Meds: No Currently Unemployed: No Education: High School Diploma/GED Difficulty w/ Childcare or Family Care: No Additional living arrangements comments: Lives in an apartment. 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 Spiritual care concerns: No Exam Narrative: GENERAL: Well-developed, well-nourished, and in no acute distress. HEAD: Normocephalic, atraumatic. EYES: PERRLA and EOMI. ENT: Nares clear, no rhinorrhea or epistaxis. Mucous membranes moist. Oropharynx without tonsillar hypertrophy exudate or other lesions. NECK: Supple. No noted stridor. No adenopathy or masses. No carotid bruits or JVD CHEST: Clear to auscultation. Tachypneic, intermittent dry cough. No wheezes rales or rhonchi HEART: Regular rate and rhythm. No murmur heard. Normal peripheral pulses. ABDOMEN: Soft, nontender, nondistended, normal active bowel sounds. EXTREMITIES: Normal range of motion. No edema.
[2022-12-14] MEDS: LORazepam INJ (*CRX) 2 MG/ML VIAL 0.5 MG IV PUSH (00:13)
[2022-12-14 00:22] VITALS: BP 124/67; PULSE 78; RESP 20; O2SAT 100
[2022-12-14 00:30] VITALS: BP 128/81; PULSE 100; RESP 20; O2SAT 98
[2022-12-14] MEDS: LIDOCAINE HCL 4% LOCAL INJ 5 ML AMP INHALATION (00:32)
[2022-12-14 01:42] VITALS: BP 119/64; PULSE 97; RESP 20; O2SAT 100
== END 2022-12-14 01:44 | disposition home or self-care (01) ==
PROVIDERS: Emergency Provider Preventive Medicine Aerospace Medicine
DX: T78.40XA Allergy, unspecified, initial encounter (principal); D89.40 Mast cell activation, unspecified; Z91.013 Allergy to seafood
CPT/HCPCS: 94640; 96361; 96374; 96375; 99284; J1200; J2060; J2405; J2930; J7030

== ENCOUNTER 2023-12-20 15:47 | Emergency (ER) | payer OTHER, SELFPAY ==
[2023-12-20] MEDS: EPINEPHrine HCL INJ 1 MG/ML AMPUL 0.3 MG IM (15:58)
[2023-12-20 16:00] VITALS: PULSE 118; RESP 24
[2023-12-20] MEDS: ALBUTEROL SULFATE NEB 2.5 MG/3 ML INH INHALATION (16:00)
[2023-12-20] MEDS: dexAMETHasone SOD PHOS INJ 10 MG/ML 1 ML VIAL IV PUSH (16:02)
[2023-12-20] MEDS: diphenhydrAMINE HCl INJ 50 MG/ML VIAL 25 MG IV PUSH (16:02)
[2023-12-20 16:03] VITALS: BP 134/78; PULSE 118; RESP 28; TEMP 36.7; O2SAT 100
[2023-12-20] MEDS: FAMOTIDINE 20 MG/2 ML VIAL IV PUSH (16:03)
[2023-12-20 16:06] VITALS: O2SAT 100
[2023-12-20 16:09] VITALS: PULSE 114; RESP 24
[2023-12-20] MEDS: LACTATED RINGERS 1,000 ML 999 ML IV CONT (16:09)
--- NOTE | 2023-12-20 16:15 | ED.ALLEREA ---
HPI - Allergic Reaction General Chief complaint: Allergic Reaction Stated complaint: allergic reaction Time Seen by Provider: 12/20/23 15:50 History of Present Illness HPI narrative: Patient presents with suspected allergic reaction, and reports difficulty breathing which feels like her usual allergic reaction/anaphylaxis when she has exposure to shellfish. Was exposed to shellfish at work today Related Data Home Medications Medication Instructions Recorded Confirmed albuterol sulfate 90 mcg/actuation 1 - 2 puff inhalation Q4-6H PRN 01/04/22 05/14/22 aerosol inhaler Shortness Of Breath Or Wheezing cromolyn 100 mg/5 mL oral 100 mg PO TIDHS 05/14/22 05/15/22 concentrate famotidine 20 mg tablet (Pepcid) 20 mg PO DAILY 05/14/22 05/14/22 fexofenadine 180 mg tablet 180 mg PO BID 05/14/22 05/14/22 montelukast 10 mg tablet 10 mg PO DAILY 05/14/22 05/14/22 (Singulair) omalizumab 150 mg/mL subcutaneous See Rx Instructions .Route .COMPLEX 05/14/22 05/14/22 syringe (Xolair) Allergies Allergy/AdvReac Type Severity Reaction Status Date / Time shellfish derived Allergy Severe Anaphylaxis Verified 02/22/22 09:21 Review of Systems Review of Systems: All systems reviewed & are unremarkable except as noted in HPI and below PMFSH Past Medical History Medical History Anxiety 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 Surgical History Surgical History History of removal of cyst Hand. Family History Family History Other Family history non-contributory Social History Social History Social History: Surrogate medical decision maker: Krystin (mother) or Luis (sister) Maksim. Code status: Full code. Smoking status: Never smoker Second hand tobacco smoke exposure: No Alcohol intake: current Drinks per week: 1 Substance use: never Lack of Transportation: No Lack of Food: Never True Current Housing: I Have Housing Concerned About Future Housing: No Difficulty Paying Gas/Electric Bills: No Difficulty Paying for Meds: No Currently Unemployed: No Education: High School Diploma/GED Difficulty w/ Childcare or Family Care: No Additional living arrangements comments: Lives in an apartment. 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 Spiritual care concerns: No Exam Narrative: EXAMINATION OF ORGAN SYSTEMS/BODY AREAS: Constitutional: Vital signs per nursing GENERAL: Appears anxious HEAD: Normal with no signs of head trauma. EYES: EOMI, conjunctiva normal ENT: Slight stridor LUNGS: Very tachypneic HEART: Tachycardic ABD: [Soft], [nontender to palpation] EXT: Normal range of motion SKIN: [No rashes or lesions.] NEURO: [Alert and oriented x 3. No gross focal sensory or strength deficits.] PSYCH: Anxious affect Course Vital Signs Vital signs: Vital Signs Pulse Rate 118 H 12/20/23 16:00 Respiratory Rate 24 H 12/20/23 16:00 Temperature 98.1 F 12/20/23 16:03 Pulse Rate 114 H 12/20/23 16:09 Respiratory Rate 24 H 12/20/23 16:09 Blood Pressure 134/78 12/20/23 16:03 Pulse Oximetry 100 12/20/23 16:06 Oxygen Delivery Nasal Cannula 12/20/23 16:06 Oxygen Flow Rate 2 12/20/23 16:06 MDM - Allergic Reaction MDM Narrative Medical decision making narrative: MEDICAL DECISION MAKING AND COURSE IN THE ED WITH INTERPRETATION/REVIEW OF DIAGNOSTIC STUDIES: Electronic medical record was reviewed. Patient presented to the ED with a complaint of [possible allergic reaction]. Vitals [were within acceptable limits]. Physical exam revealed patient who appears slightly anxious and dyspnea with some mild stridor. Based o
[2023-12-20] MEDS: LORazepam INJ (*CRX) 2 MG/ML VIAL 0.5 MG IV PUSH (16:55)
--- NOTE | 2023-12-20 17:32 | PC.NURSE ---
Patient accepted to [facility]. [facility] for transport to facility
[2023-12-20 17:41] VITALS: BP 131/89; PULSE 92; RESP 20; TEMP 36.7; O2SAT 100
== END 2023-12-20 17:41 | disposition home or self-care (01) ==
PROVIDERS: Emergency Provider Emergency Medicine; PCP Family Medicine Sports Medicine
DX: R06.03 Acute respiratory distress (principal); F41.9 Anxiety disorder, unspecified; D89.40 Mast cell activation, unspecified; Z91.013 Allergy to seafood; Z79.620 Long term (current) use of immunosuppressive biologic; Z79.899 Other long term (current) drug therapy
CPT/HCPCS: 94640; 96361; 96372; 96374; 96375; 99284; J0171; J1100; J1200; J2060; J7120

== ENCOUNTER 2024-08-22 17:22 | Emergency (ER) | payer OTHER, SELFPAY ==
--- OUTSIDE RECORDS SUMMARY | 2024-08-22 17:24 | XMS_ITS | Referral Summary ---
Author Organization [facility] Address [address] [place] [address] Phone Care Team Providers Care Rug Dyer Name Role Phone Aixa Mckeon MD Unavailable Christina Avelar NP Primary Care Provider Encounters Date Type Department Care Team Description 08/11/2024 8:30 AM CDT Clinical Support [facility] Allergy and Immunology [address] [place] [address] Chronic idiopathic urticaria (Primary Dx) 08/09/2024 9:15 AM CDT Office Visit [facility] at [address] [address] Mattie Velez NP Pain of left calf (Primary Dx) 08/05/2024 8:30 AM CDT Office Visit [facility] at [address] [address] Tianna Solis NP Mast cell activation syndrome (Primary Dx); Rash and nonspecific skin eruption; Nausea 06/22/2024 Orders Only [facility] at [address] [address] Christina Avelar NP Nausea 06/10/2024 Telephone [facility] Medical [facility] Primary Care at [address] [address] Christina Avelar NP PA for Ondansetron 4MG 06/10/2024 10:30 AM CDT Office Visit [facility] at [address] [phone] Tianna Solis NP Nausea (Primary Dx); 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 [address] [place] [address] Spencer Haji MD Pap with reflex to High Risk HPV and Genotyping (Cytology Component) 05/31/2024 2:18 PM CDT - 05/31/2024 11:59 PM CDT Hospital Encounter [facility] PATHOLOGY [address] [place] [address] Screening for cervical cancer Discharge Disposition: Discharge to home or self care 05/31/2024 1:00 PM CDT Office Visit [facility] [address] [place] [address] Outpatient Health 3rd Floor [address] [place] [address] Spencer Haji MD Encounter for other general counseling or advice on contraception (Primary Dx); BCP ( control pills) initiation; Irregular menses; Screening for cervical cancer from Last 3 Months Allergies Active Allergy Reactions Criticality Noted Date Comments Cephalexin Rash Medium 07/27/2003 Iodinated Contrast Media Anaphylaxis,Rash,Steph rtness of breath High 09/21/2021 Per Care Everywhere record: mother states patient requires pre-meds if needing contrast (diphenhydramine, steroid) Other Anaphylaxis,Shortnes s of breath,Rash High 08/18/2017 Per mother: Patient required pre-meds if needing contrast (diphenhydramine/gluc ocorticoid) Penicillins Anaphylaxis,Hives High 11/30/2002 Per mother, this happened as an infant. Hives/rash. Unknown significance of this allergy anymore per mother as it was not a severe reaction at the time. Shellfish Anaphylaxis High 12/31/2019 Patient admitted to ICU in Mar 2024 for anaphylaxis from shellfish exposure. Sulfa (Sulfonamide Antibiotics) Rash Medium 11/26/2017 Medications ALPRAZolam (XANAX) 0.5 mg tablet Take 1 tablet (0.5 mg total) by mouth as needed Active fexofenadine (ITZEL) 180 mg tablet Take 2 tablets (360 mg total) by mouth 2 (two) times a day 021 Active omalizumab (Xolair) 150 mg/mL syringe Inject 2 mL (300 mg total) under the skin every 4 (four) weeks 2 mL 11 022 Active Additional Information Patient taking differently:300 mg subcutaneousEvery 14 days, Indications: MAST CELL DISORDER, Informant: Self, Reported on 08/05/2024 acetaminophen (TYLENOL) 325 mg tablet Take 2 tablets (650 mg total) by mouth every 6 (six) hours as needed Active cromolyn (GASTROCROM) 100 mg/5 mL solution Take 5 mL (100 mg total) by mouth 4 (four) times a day before meals and nightly 600 mL 3 023 Active Additional Information Patient taking differently:100 mg oralAs needed, Reported on 08/05/2024 aspirin 325 mg tabletIndications :Chronic idiopathic urticaria,Mast cell activation Take 1 tablet (325 mg total) by mouth daily 30 tablet 3 023 Active SUMAtriptan (IMITREX) 25 mg tablet Take 1 tablet (25 mg total) by mouth once as needed for migraine May repeat after 2 hours. 9 tablet 024 Active EPINEPHrine (Auvi-Q) 0.3 mg/0.3 mL auto-injection syringeIndication s:Anaphylaxis Inject 0.3 mL (0.3 mg total) into the muscle as instructed as needed for anaphylaxis Call 911 after use. 2 each 1 025 Active EPINEPHrine 0.3 mg/0.3 mL auto-injection syringe Inject 0.3 mL (0.3 mg total) into the muscle as instructed as needed for anaphylaxis 2 each 2 025 Active famotidine (PEPCID) 40 mg tabletIndications :Heartburn,gastro esophageal reflux disease Take 0.5 tablets (20 mg total) by mouth 2 (two) times a day 30 tablet 11 025 Active montelukast (SINGULAIR) 10 mg tablet Take 1 tablet (10 mg total) by mouth nightly 30 tablet 11 025 Active albuterol HFA (PROVENTIL HFA,VENTOLIN HFA,PROAIR HFA) 90 mcg/actuation inhalerIndication s:Lower respiratory infection (e.g., bronchitis, pneumonia, pneumonitis, pulmonitis),Moder ate asthma with exacerbation, unspecified whether persistent Inhale 2 puffs every 6 (six) hours as needed for wheezing or shortness of breath 1 each 025 Active azithromycin (ZITHROMAX) 250 mg tabletIndications :Lower respiratory infection (e.g., bronchitis, pneumonia, pneumonitis, pulmonitis) Take 2 tablets the first day, then 1 tablet daily for 4 days. 6 tablet 025 Active benzonatate (TESSALON) 200 mg capsuleIndication s:Acute cough Take 1 capsule (200 mg total) by mouth 3 (three) times a day as needed for cough keep tessalon out of reach of children, especially children under the age of 10, due to possible serious risk such as if ingested by children under the age of 10. 30 capsule 025 Active albuterol-budeson maira (Airsupra) 90-80 mcg/actuation HFA aerosol inhalerIndication s:Wheezing Inhale 2 puffs every 4 (four) hours as needed (wheezing) 32.1 g 025 Active norethindrone ac-eth estradioL (Loestrin 04/05, ,) 1-20 mg-mcg per tablet Take 1 tablet by mouth daily 28 tablet 12 2025 Active ondansetron ODT (ZOFRAN-ODT) 4 mg disintegrating tabletIndications :Nausea Take 1 tablet (4 mg total) by mouth every 8 (eight) hours as needed for nausea or vomiting 20 tablet Active methylPREDNISolon e (Medrol, Oren,) 4 mg DosepackIndicatio ns:Rash and nonspecific skin eruption follow package directions 1 packet Active Hospital, Clinic, or Other Facility Administered Medication Ordered Dose Route Frequency Start Date End Date Status cetirizine (ZyrTEC) 1 mg/mL oral solution 10 mgIndications:Chronic idiopathic urticaria 10 mg oral Once 08/11/2024 08/11/2024 Ende d Active Problems Problem Noted Date Diagnosed Date Anxiety 04/13/2024 Assessment & Plan (04/13/2024 5:07 AM BUSINESS SERVICES TECH): Weaned off precedex in ICU. Has xanax at home but seldom uses it. -Continue ativan prn for anxiety and insomnia. Patient reports she does not need any ativan to go home with after discharge POTS (postural orthostatic tachycardia syndrome) 04/13/2024 Assessment & Plan (04/13/2024 5:14 AM BUSINESS SERVICES TECH): Patient has a history of spontaneous tachycardia. Briefly on metoprolol in 2022 but later discontinued after several months. 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 Mckeon. Per last note 07/12/22, 24 hour urine prostaglandin, methylhistamine, leukotriene, tryptase WNL. -Continue allergy meds as listed elsewhere -resume home aspirin 325 mg daily at discharge for flushing Anaphylaxis, initial encounter 04/11/2024 Assessment & Plan (04/13/2024 12:25 PM BUSINESS SERVICES TECH): Patient presented with pruritus, tachycardia, tongue swelling, SOB. She was treated with epinephrine IM injection followed by epinephrine GTT 04/11-04/12 in ICU. Transferred to the floor on 04/13 after weaned of gtt. Patient also received fluid resuscitation, dexamethasone 10 mg *1, solu-medrol 60 mg *1 and 40 mg *1. [place] almost back to baseline after transfer except some sore throat which is normal for her after allergy attacks. The most likely cause of this event is airborne shellfish allergen. Per allergy team, patient has missed her last dose of Xolair, which lowered her tolerance to allergens Plan: -Allergy consulted, appreciate recs -Continue prednisone taper, starting with 40 mg on 04/13, then taper down 10 mg every 3 days -Continue home Itzel 180 mg b.i.d. (patient usually uses zyrtec 10 mg bid immediately after allergy events and then transition later to itzel), Pepcid 20 mg b.i.d., Singulair 10 mg q.h.s., cromolyn q.i.d. 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 Informed that there would be no way for me to guarantee that she would never have a cycle on any of the methods. Risks, benefits, warning signs, and proper use of multiple methods discussed. She is open to any options. Plan to consult regarding appropriate method for this patient. 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 Follows closely with board turner. Hx of allergy to shellfish 03/27/2022 History of anaphylaxis 03/27/2022 Mild intermittent asthma without complication Inappropriate sinus tachycardia 03/27/2022 Overview (03/27/2022): reprots borderline dx for POTS. monitor. 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 Chronic idiopathic urticaria 03/05/2021 SOB (shortness of breath) Hoarseness Resolved Problems Problem Noted Date Diagnosed Date Resolved Date Cough 03/27/2022 Immunizations Immunization Administration Dates Next Due DTaP 11/02/2007, 4,06/01/2002,04/10,02/05/2002 H1N1 Nasal 01/20/2009 HPV9 08/18/2017,09/02/2016 Hep B / HiB 06/01/2002,02/05/2002 Hep B, Adolescent or Pediatric 3,06/01/2002,02/05/2002,11/27 HiB 11/30/2002,04/10/2002 Hib (PRP-T) 11/30/2002, 3,04/10/2002,02/05 IPV 11/02/2007, 3,04/10/2002,02/05 Influenza Virus Vaccine Trivalent Mdv 02/01/2011 ,02/02/2010 Influenza, Quadrivalent, Spl it, Preservative Free, Intramuscular 01/22/2019,04/21/2018,12/28/2016,12/29,01/13/2014,12/10/2012 Influenza, Split 02/02/2010,12/09/2008 Influenza, Trivalent, IM (MDV) 02/01/2011 Influenza, Trivalent, Split, Preservative Free, Intradermal 01/07/2013 Influenza, Unspecified 03/17/2023(Deferr ed: Patient Refused),03/17/2022(Deferred: Patient Refused) MMR 11/02/2007,06/07/2003 Meningococcal MCV4P (Menactra) 01/22/2019,2016 Tdap 09/14/2013 Varicella 12/09/2008,12/14/2007 Social History Tobacco Use Types Packs/Day Years Used Date Smoking Tobacco: Never Smokeless Tobacco: Never Tobacco Cessation:Counseling Given: Not Answered Humiliation, Afraid, Rape, and Kick questionnair e Answer Date Recorded Within the last year, have y ou been afraid of your partner or ex-partner? No 06/20/2022 Within the last year, have y ou been humiliated or emotionally abused in other ways by your partner or ex-partner? No Within the last year, have y ou been kicked, hit, slapped, or otherwise physically hurt by your partner or ex-partner? No 06/20/2022 Within the last year, have y ou been raped or forced to have any kind of sexual activity by your partner or ex-partner? No 06/20/2022 AUDIT-C Answer Date Recorded Frequency of Alcohol Consumption Not on file 07/12/2022 Q2: How many drinks containi ng alcohol do you have on a typical day when you are drinking? Patient does not drink Frequency of Binge Drinking Not on file 06/16 PHQ-2 Answer Date Recorded PHQ-2 Total Score (If total score is 3 or more points, staff should administer the PHQ-9) 0 01/20/2024 Hunger Vital Sign Answer Date Recorded Within the past 12 months, y ou worried that your food would run out before you got the money to buy more. Never true 06/01/19 25 Within the past 12 months, t he food you bought just didn't last and you didn't have money to get more. Never true 05/31/2024 Personal Safety Answer Date Recorded Have you ever been in or are you currently in a harmful physical or emotional relationship or is someone making you feel afraid or unsafe? Denies 04/14/2024 Comments No Sex and Gender Information Value Date Recorded Sex Assigned at Not on file Legal Sex Female 1:15 PM BUSINESS SERVICES TECH Gender Identity Not on file Sexual Orientation Not on file Last Filed Vital Signs Vital Sign Reading Time Taken Comments Blood Pressure 127/83 08/09/2024 8:34 AM CDT Pulse 88 08/09/2024 8:34 AM CDT Temperature 36.6 C (97.8 F) 08/09/2024 8:34 AM CDT Respiratory Rate 20 08/09/2024 8:34 AM CDT Oxygen Saturation 99% 08/09/2024 8:34 AM CDT Inhaled Oxygen Concentration - - Weight 114.8 kg (253 lb) 08/09/2024 8:34 AM CDT Height 177.8 cm (5' 10) 08/05/2024 8:21 AM CDT Body Mass Index 36.3 08/05/2024 8:21 AM CDT Plan of Treatment Not on file Procedures Procedure Name Priority Date/Time Associated Diagnosis Comments PAP WITH REFLEX TO HIGH RISK HPV Routine 05/31/2024 2:18 PM CDT Screening for cervical cancer THINPREP PROCESSING (MOLECULAR COMPONENT) Routine 05/31/2024 2:18 PM CDT Screening for cervical cancer HEPATITIS PANEL, ACUTE Routine 4:00 PM BUSINESS SERVICES TECH Routine screening for STI (sexually transmitted infection) N. GONORRHOEAE/C. TRACHOMATIS AMPLIFICATION Routine 01/20/2024 4:00 PM BUSINESS SERVICES TECH Dysuria from Last 3 Months or Most Recently Relevant to Health Maintenance Results * ThinPrep processing (Molecular component) (05/31/2024 2:18 PM CDT) ThinPrep processing (Molecular component) Specimen received for processing. [facility] Endocervical 05/31/2024 2:18 PM CDT 06/02/2024 9:24 AM CDT us Spencer Haji MD LAB BODY FLUIDS AND STOO LS ORDERABLES Final Result [facility]ON[facility] Department [place] [address] [facility] * Pap with reflex to High Risk HPV and Genotyping (Cytology Component) (05/31/2024 2:18 PM CDT) Thin prep (Pap test) 05/31/2024 2:18 PM CDT 05/31/2024 2:47 PM CDT Narrative PATHOLOGY [facility] - 06/08/2024 10:06 AM CDT EPIC results best viewed via link to PDF [facility] Fifi Romero [facility] [place] [address] Note to Patients: This report may contain a detailed description of human tissue sent by a health care provider to the laboratory for pathologic evaluation. The content of this report is essential for diagnosis and may provide important critical findings. This information may be unfamiliar to patients to review without a medical professional present. It is advised that the patient review this report in the presence of a health care provider who can answer questions and explain the details. CYTOPATHOLOGY REPORT FINAL Patient Name: KAYLIE SCHAEFFER Gender: F : 2000 (Age: 23) Address: [address] [place] [address], [place] [address] Hospital #: [id number] Service: UNKNOWN Location: Patient Type: [facility] SPECIMEN Taken: 05/31/2024 Received: 05/31/2024 Accessioned: 06/01/2024 Reported: 06/08/2024 Physician(s): Spencer Haji, FINAL INTERPRETATION SOURCE OF SPECIMEN Liquid based Thin Prep pap with Reflex HPV: STATEMENT OF ADEQUACY - Satisfactory for evaluation - Endocervical cells/transformation zone sample absent GENERAL CATEGORIZATION: - Negative for squamous intraepithelial lesion or malignancy This specimen has been rescreened in accordance with this laboratory's Butter Production Supervisor Program. [facility] [place]06/08/2024 10:06 JS Rodriguez(ASCP) Report Electronically Reviewed and Signed Out By TIA Alves (ASCP) 06/08/2024 10:06:36 Cervicovaginal Cytology (Pap Test) Disclaimer: The Pap test is a screening test used to detect cervical cancer and its precursors; it is not a diagnostic procedure. False negative and false positive results do occur. Pap test results should be interpreted in the context of pertinent clinical information and biopsy results as indicated. [facility] Clinical Laboratory Improvement Amendments (CLIA) mandate that cytologic and histologic results be correlated for laboratory clinical quality manager & improvement standards. FOR ALL HIGH-GRADE CASES we request submission of follow-up histological material and/or reports that have not been previously provided so that we may fulfill said required standards. Gross Description A. Liquid based Thin Prep pap with Reflex HPV: Cervical/vaginal - Screening ThinPrep Clinical Diagnosis and History Last Menstrual Period: 03/18/24 The patient is a 23 year old female with screening. Report Images and scanned documents, if included only viewable in PDF version The performance characteristics of some immunohistochemical stains, in-situ hybridization and fluorescence in-situ hybridization tests and immunophenotyping by flow cytometry cited in this report (if any) were determined by the Surgical Pathology Department at [facility] as part of an ongoing plant quality manager program and in compliance with federally mandated regulations drawn from the Clinical Laboratory Improvement Act of 1988 (CLIA '88). Some of these tests rely on the use of analyte specific reagents and are subject to specific labeling requirements by the US Food and Drug Administration. Such diagnostic tests may only be performed in a facility that is certified by the Department of Health and Human Services as a high complexity laboratory under CLIA '88. The FDA has determined that such clearance or approval is not necessary. This test is used for clinical purposes. It should not be regarded as investigational or for research. Nevertheless, federal rules concerning the medical use of analyte specific reagents require that the following disclaimer be attached to the report: This test was developed and its performance characteristics determined by the Surgical Pathology Department of [facility]. It has not been cleared or approved by the U. S. Food and Drug Administration. Spencer Haji MD LAB CYTOLOGY ORDERABLES Final Result PATHOLOGY [facility] 3rd Floor [place], [place] [phone] * N. gonorrhoeae/C. trachomatis Amplification Urine (01/20/2024 4:00 PM BUSINESS SERVICES TECH) C. trachomatis Not Detected [facility] Comment:Testing performed by : [facility], [address] [place] [address]., [id number] N. gonorrhoeae Not Detected [facility]ON[facility] Comment: Interpretive Data This assay detects Chlamydia trachomatis and Neisseria gonorrhoeae by nucleic acid amplification testing (NAAT). This assay has been cleared by the [place] Food and Drug administration. The performance characteristics of this test have been verified by the [facility] Molecular Infectious Disease laboratory. The performance characteristics of this test have not been evaluated in individuals less than 14 years of age. Current Interpretive Data was last revised on 2023. Testing performed by: [facility], [address] [place] [address]., [id number] Urine (None) 01/20/2024 4:00 PM BUSINESS SERVICES TECH 01/21/2024 10:19 AM BUSINESS SERVICES TECH Christina Avelar NP LAB MICROBIOLOGY - GENERAL ORDER JOSÉ MIGUEL Final Result T[facility]YA [facility]ERRERA [address] [address] Department [place] [address] [facility] * Hepatitis panel, acute Blood (01/20/2024 4:00 PM BUSINESS SERVICES TECH) Hep A IgM Nonreactive Nonreactive Comment: Interpretive Data: If Hep A IgM Ab is reported as Equivocal, a new sample should be drawn in two weeks for testing. Current interpretive data was last revised on 19. Hep B core IgM Nonreactive Nonreactive TONYA Comment: Interpretive Data If HepB Core IgM Ab is reported as Equivocal, a new sample should be drawn in two weeks for testing. Current interpretive data was last revised on 19. Hep C Ab Nonreactive Nonreactive TONYA Comment: Interpretive Data Nonreactive: Antibodies to HCV not detected. Does NOT exclude the possibility of recent exposure to HCV. Equivocal: Equivocal for HCV antibodies. Supplemental molecular testing will be automatically performed to determine infection status in accordance with current CDC screening recommendations. Reactive: Positive for HCV antibodies. This may represent current or past HCV infection. Supplemental molecular testing will be automatically performed to determine current infection status in accordance with current CDC screening recommendations. Interpretive data was last revised on 2019. HepBsAg Nonreactive Nonreactive [facility] Blood 01/20/2024 4:00 PM BUSINESS SERVICES TECH 01/20/2024 9:14 PM BUSINESS SERVICES TECH Christina Avelar NP LAB MICROBIOLOGY - GENERAL ORDER JOSÉ MIGUEL Final Result [facility] [address] [address] [place] [address] from Last 3 Months or Most Recently Relevant to Health Maintenance Insurance [employer] [facility] [address] [place] [id number] [employer] [facility] [employer] [facility] Advance Directives For more information, please contact: [phone] * Full Code (Latest Code Status on File) Date Activated Date Inactivated Comments 04/11/2024 8:44 PM 04/13/2024 3:31 PM Care Teams Rug Dyer Relationship Specialty Start Date End Date Christina Avelar NP [address] [place] [address] PCP - General Family Medicine 01/20/24 Aixa Mckeon MD [address] [facility] [address] [place] [address] Referring Physician Allergy and Immunology 01/20/24
--- OUTSIDE RECORDS SUMMARY | 2024-08-22 17:24 | XMS_ITS | Continuity of Care Document ---
Author Organization [employer] Address [address] [place] [address] Phone Care Team Providers Care Sonogram Technician Name Role Phone Vicki Bronson PTA Unavailable Unavailable Procedures Procedure Date Therapeutic Exercise Neuromuscular Re-Ed Manual Therapy Therapeutic Exercise Neuromuscular Re-Ed Manual Therapy Therapeutic Exercise Neuromuscular Re-Ed Manual Therapy Therapeutic Exercise Neuromuscular Re-Ed Manual Therapy Therapeutic Exercise Neuromuscular Re-Ed Therapeutic Exercise Neuromuscular Re-Ed Manual Therapy Therapeutic Exercise Neuromuscular Re-Ed Manual Therapy Therapeutic Exercise Neuromuscular Re-Ed Manual Therapy Therapeutic Exercise Neuromuscular Re-Ed Manual Therapy PT Evaluation Low Complexity Therapeutic Exercise Neuromuscular Re-Ed Manual Therapy Screening Progress Note THERAPEUTIC EXERCISES FUNC ACTIVITY THERAPEUTIC EXERCISES THERAPEUTIC EXERCISES ULTRASOUND THERAPY THERAPEUTIC EXERCISES THERAPEUTIC EXERCISES MANUAL THERAPY THERAPEUTIC EXERCISES Progress Note THERAPEUTIC EXERCISES MANUAL THERAPY THERAPEUTIC EXERCISES DURABLE GOODS THERAPEUTIC EXERCISES MANUAL THERAPY THERAPEUTIC EXERCISES THERAPEUTIC EXERCISES MANUAL THERAPY FUNC ACTIVITY THERAPEUTIC EXERCISES THERAPEUTIC EXERCISES MANUAL THERAPY FUNC ACTIVITY THERAPEUTIC EXERCISES THERAPEUTIC EXERCISES MANUAL THERAPY FUNC ACTIVITY THERAPEUTIC EXERCISES THERAPEUTIC EXERCISES MANUAL THERAPY FUNC ACTIVITY THERAPEUTIC EXERCISES THERAPEUTIC EXERCISES NEUROMUSCULAR RE-ED FUNC ACTIVITY THERAPEUTIC EXERCISES THERAPEUTIC EXERCISES MANUAL THERAPY THERAPEUTIC EXERCISES DURABLE GOODS PT EVALUATION THERAPEUTIC EXERCISES NEUROMUSCULAR RE-ED MANUAL THERAPY Advance Directives Directive Yes / No Effective Date File Name No Information Encounters Encounter Description Practice Location Reason(s) For Visit Diagnoses Date Provider Providers Copied on Encounter [facility], [place], [place], [id number], tel:[phone] [place] Other articular cartilage disorders, right shoulderPain in right shoulderBursitis of right shoulder 0-201 9 Aiyana Cohen. . Referring Provider: Bala Grier, [address] [place] [address], [place], [address]. tel:[phone] [facility], [place], [place], [id number], tel:[phone] [facility] Other articular cartilage disorders, right shoulderPain in right shoulderBursitis of right shoulder July-2 - 9 Dehmer Vicki. . Referring Provider: Bala Grier, [address] [facility], [place], [address]. tel:[phone] [facility], [address], [place], [place], [id number], [place] tel:[phone] [place] Other articular cartilage disorders, right shoulderPain in right shoulderBursitis of right shoulder 9 Dehmer Vicki. . Referring Provider: Bala Grier, [address] [facility] [address], [place], [address]. tel:[phone] [facility], [address], [place], [place], [address], [place] tel:[phone] [place] Other articular cartilage disorders, right shoulderPain in right shoulderBursitis of right shoulder 9 Keturah Russo. . Referring Provider: Bala Grier, [address] [facility], [place], [address]. tel:[phone] [facility], [address], [place], [place], [address], [place] tel:[phone] [place] Other articular cartilage disorders, right shoulderPain in right shoulderBursitis of right shoulder July-0 9-201 9 Dehmer Vikci. . Referring Provider: Bala Grier, [address] [facility], [place], [address]. tel:[phone] [facility], [address], [place], [place], [address], [place] tel:[phone] [place] Other articular cartilage disorders, right shoulderPain in right shoulderBursitis of right shoulder July-0 2- 9 Dehmer Vicki. . Referring Provider: Bala Grier, [address] [facility], [place], [address]. tel:[phone] [facility], [address], [place], [place], [address], [place] tel:[phone] [place] Other articular cartilage disorders, right shoulderPain in right shoulderBursitis of right shoulder Apr-3 0-201 9 Dehmer Vicki. . Referring Provider: Bala Grier, [address] [facility], [place], [address]. tel:[phone] [facility], [place], [place], [address], [place] tel:[phone] [facility] Other articular cartilage disorders, right shoulderPain in right shoulderBursitis of right shoulder Apr-2 3-201 9 Dehmer Vicki. . Referring Provider: Bala Grier, [address] [facility], [place], [address]. tel:[phone] [facility], [address], [place], [place], [address], [place] tel:[phone] [facility] Other articular cartilage disorders, right shoulderPain in right shoulderBursitis of right shoulder Apr-1 8-201 9 Dehmer Vicki. . Referring Provider: Bala Grier, [address] [facility], [place], [address]. tel:[phone] [facility], [address], [place], [place], [address], [place] tel:[phone] [facility] Other articular cartilage disorders, right shoulderPain in right shoulderBursitis of right shoulder Apr-1 6-201 9 Keturah Russo. . Referring Provider: Bala Grier, [address] [facility], [place], [address]. tel:[phone] [facility], [place], [place], [id number], [place] tel:[phone] [place] No Information 1201 8 Ronny Ochoa. . Referring Provider: Physician Liza. [facility], [place], [place], [address], [place] tel:[phone] [place] No Information Mar-0 7-201 6 Keturah Rafaela. . Referring Provider: [address], [place], [address]. tel:[phone] [facility], [address], [place], [place], [address], tel:[phone] [place] No Information Mar-0 4-201 6 Dehmer Vicki. . Referring Provider: [address], [place], [address]. tel:[phone] [facility], [address], [place], [place], [address], tel:[phone] [place] No Information b-2 2-201 6 Dehmer Vicki. . Referring Provider: [address], [place], [address]. tel:[phone] [facility], [address], [place], [place], [address], tel:[phone] [place] No Information b- 5-201 6 Dehmer Vicki. . Referring Provider: [address], [place], [address]. tel:[phone] [facility], [address], [place], [place], [address], tel:[phone] [place] No Information b- 5-201 6 Keturah Rafaela. . [facility], [address], [place], [place], [id number], [place] tel:[phone] [place] No Information b- 0-201 6 Dehmer Vicki. . Referring Provider: [address], [place], [address]. tel:[phone] [facility], [address], [place], [place], [address], tel:[phone] [place] No Information 6 Keturah Russo. . Referring Provider: [address], [place], [address]. tel:[phone] [facility], [address], [place], [place], [address], [place] tel:[phone] [place] No Information b0 6 Dehmer Vicki. . Referring Provider: [address], [place], [address]. tel:[phone] [facility], [address], [place], [place], [address], tel:[phone] [place] No Information 0 6 Keturah Russo. . Referring Provider: [address], [place], [address]. tel:[phone] [facility], [address], [place], [place], [address], [place] tel:[phone] [place] No Information 6 Dehmer Vicki. . Referring Provider: [address], [place], [address]. tel:[phone] [facility], [address], [place], [place], [address], [place] tel:[phone] [place] No Information 6 Dehmer Vicki. . Referring Provider: [address], [place], [address]. tel:[phone] [facility], [address], [place], [place], [address], [place] tel:[phone] [place] No Information 6 Dehmer Vicki. . Referring Provider: [address] , [place], [address]. tel:[phone] [facility], [address], [place], [place], [address], tel:[phone] [place] No Information 6 Keturah Russo. . [facility], [place], [place], [address], tel:[phone] [place] Pain in right kneeStiffness of unspecified knee, not elsewhere classifiedMuscle weakness (generalized)Effu wilber, left knee 6 Keturah Russo. . Referring Provider: Michelle Davis, [address] , [place], [address]. tel:[phone] Family History Family Member Type Diagnosis Age At Onset No Information Payers Payer name Insurance type Covered republican ID maegan mckenna(s) Financial Assistance Social History Type Description Quantity Date Captured Comments Sex Female Smoking Status No Information Chief Complaint And Reason For Visit No Information Reason For Referral Reason For Referral No Information History Of Present Illness Encounter Date Complaint History Of Prese nt Illness No Information Functional Status Date Functional Assessmen t No Information Instructions Date Instruction Additional Infor mation No Information Assessments Type Assessment Date No Information Patient Care Teams Name Effective Dates (start - stop) Status Members No Information
--- OUTSIDE RECORDS SUMMARY | 2024-08-22 17:24 | XMS_ITS | Clinical Summary ---
Author Organization [facility] Address [address] [place] [address] Phone Care Team Providers Care Exhibition Organiser Name Role Phone Aixa Mckeon MD Unavailable [phone] Christina Avelar NP Primary Care Provider [phone] Allergies Active Allergy Reactions Criticality Noted Date Comments Cephalexin Rash Medium 07/27/2003 Iodinated Contrast Media Anaphylaxis,Rash,Steph rtness of breath High 09/21/2021 Per Care Everywhere record: mother states patient requires pre-meds if needing contrast (diphenhydramine, steroid) Other Anaphylaxis,Shortnes s of breath,Rash High 08/18/2017 Per mother: Patient required pre-meds if needing contrast (diphenhydramine/gluc ocorticoid) Penicillins Anaphylaxis,Hives High 11/30/2002 Per mother, this happened as an . Hives/rash. Unknown significance of this allergy anymore per mother as it was not a severe reaction at the time. Shellfish Anaphylaxis High 12/31/2019 Patient admitted to ICU in Mar 2024 for anaphylaxis from shellfish exposure. Sulfa (Sulfonamide Antibiotics) Rash Medium 11/26/2017 Medications ALPRAZolam (XANAX) 0.5 mg tablet Take 1 tablet (0.5 mg total) by mouth as needed 021 Active fexofenadine (ITZEL) 180 mg tablet Take [...] mouth every 6 (six) hours as needed 022 Active cromolyn (GASTROCROM) 100 mg/5 mL solution [...] tablet by mouth daily 28 tablet 12 025 2025 Active ondansetron ODT (ZOFRAN-ODT) 4 mg disintegrating tabletIndications :Nausea Take 1 tablet (4 mg total) by mouth every 8 (eight) hours as needed for nausea or vomiting 20 tablet 025 Active methylPREDNISolon e (Medrol, Oren,) 4 mg DosepackIndicatio ns:Rash and nonspecific skin eruption follow package directions 1 packet 025 Active Hospital, Clinic, or Other Facility Administered Medication Ordered Dose Route Frequency Start Date End Date Status cetirizine (ZyrTEC) 1 mg/mL oral solution 10 mgIndications:Chronic idiopathic urticaria 10 mg oral Once 08/11/2024 08/11/2024 Ende d Active Problems Problem Noted Date Diagnosed Date Anxiety 04/13/2024 Assessment & Plan (04/13/2024 5:07 AM COMMERCIAL LITIGATION PARALEGAL): Weaned off precedex in ICU. Has xanax at home but seldom uses it. -Continue ativan prn for anxiety and insomnia. Patient reports she does not need any ativan to go home with after discharge POTS (postural orthostatic tachycardia syndrome) 04/13/2024 Assessment & Plan (04/13/2024 5:14 AM COMMERCIAL LITIGATION PARALEGAL): Patient has a history of spontaneous tachycardia. Briefly on metoprolol in 2022 but later discontinued after several months. 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 Mckeon. Per last note 07/12/22, 24 hour urine prostaglandin, methylhistamine, leukotriene, tryptase WNL. -Continue allergy meds as listed elsewhere -resume home aspirin 325 mg daily at discharge for flushing Anaphylaxis, initial encounter 04/11/2024 Assessment & Plan (04/13/2024 12:25 PM COMMERCIAL LITIGATION PARALEGAL): Patient presented with pruritus, tachycardia, tongue swelling, SOB. She was treated with epinephrine IM injection followed by epinephrine GTT 04/11-04/12 in ICU. Transferred to the floor on 04/13 after weaned of gtt. Patient also received fluid resuscitation, dexamethasone 10 mg *1, solu-medrol 60 mg *1 and 40 mg *1. Albright almost back to baseline after transfer except [...] mg IM (brand of epinephrine), sent to [facility] in [place] -Allergy arranged Xolair injection in outpatient setting [...] 03/27/2022 Assessment & Plan (01/20/2024 3:04 PM COMMERCIAL LITIGATION PARALEGAL): Stable. Follows closely with de[facility] of education. Hx of allergy to shellfish 03/27/2022 History of anaphylaxis 03/27/2022 Mild intermittent asthma without complication Inappropriate sinus tachycardia 03/27/2022 Overview (03/27/2022): reprots borderline dx for POTS. monitor. 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 Chronic idiopathic urticaria 03/05/2021 SOB (shortness of breath) Hoarseness Resolved Problems Problem Noted Date Diagnosed Date Resolved Date Cough 03/27/2022 Encounters Date Type Department Care Team Description 08/11/2024 8:30 AM CDT Clinical Support [facility] Allergy and Immunology [address] [place] [address] Chronic idiopathic urticaria (Primary Dx) 08/09/2024 9:15 AM CDT Office Visit [facility] Care at [address] [address] Velez, Mattie B., PHARMACIST IN CHARGE OWNER Pain of left calf (Primary Dx) 08/05/2024 8:30 AM CDT Office Visit [facility] Care at [address] [address] Tianna Solis NP Mast cell activation syndrome (Primary Dx); Rash and nonspecific skin eruption; Nausea 06/22/2024 Orders Only [facility] Primary Care at [address] [address] Christina Avelar NP Nausea 06/10/2024 10:30 AM CDT Office Visit [facility] Care at [address] [address] Tianna Solis NP Nausea (Primary Dx); Mast cell activation syndrome 06/10/2024 Telephone [facility] at [address] [address] Christina Avelar NP PA for Ondansetron 4MG 06/08/2024 Results Follow-Up [facility] [address] [place] [address] Spencer Haji MD Pap with reflex to High Risk HPV and Genotyping (Cytology Component) 05/31/2024 2:18 PM CDT - 05/31/2024 11:59 PM CDT Hospital Encounter [facility] PATHOLOGY [address] [address] Screening for cervical cancer Discharge Disposition: Discharge to home or self care 05/31/2024 1:00 PM CDT Office Visit [facility]stetrics and Gynecology Clinic [facility] 3rd Floor [address] [place] [address] Spencer Haji MD Encounter for other general counseling or advice on contraception (Primary Dx); BCP ( control pills) initiation; Irregular menses; Screening for cervical cancer from Last 3 Months Immunizations Immunization Administration Dates Next Due DTaP [...] MCV4P (Menactra) 01/22/2019,2016 Tdap 09/14/2013 Varicella 12/09/2008,12/14/2007 Surgical History Surgery Date Site/Laterality Comments HAND SURGERY 04/17/2018 - 05/14/2018 Right cyst removed LARYNGOSCOPY 12/05/2021 LARYNGOSCOPY DIRECT TRACHEOSCOPY WITH DILATION LARYNGOSCOPY 03/06/2022 tracheal dilation Medical History Medical History Date Comments Anaphylaxis 01/03/2022 Allergic rhinitis Urticaria Tachycardia Anxiety Mast cell activation, unspecified Asthma Shellfish allergy Inappropriate sinus tachycardia 03/27/2022 Family History Medical History Relation Name Comments Asthma Father Allergic rhinitis Father's Sister Asthma Sister Anesthesia problems Neg Hx Other cancer Neg Hx no breast, kids activities coach, or colon cancers Relation Name Status Comments Father Father's Sister Sister Social History Tobacco Use Types Packs/Day Years [...] on file Legal Sex Female 1:15 PM COMMERCIAL LITIGATION PARALEGAL Gender Identity Not on file Sexual Orientation Not on file Obstetrics History Para Term AB IAB SAB Ectopic Multiple Livin g Live Births 0 0 0 0 0 0 0 0 0 0 0 Last Filed Vital Signs Vital Sign Reading [...] 08/05/2024 8:21 AM CDT Plan of Treatment Health Maintenance Due Date Last Done Comments Meningococcal B Vaccine (1 o f 2 - Standard) 2017 Pneumococcal vaccine <65 (1 of 2 - PCV) 2020 Regular Well Visit/Exam 18-64 06/21/2023 06/20/2022 DTaP/Tdap/Td Vaccine (7 - Td or Tdap) 09/15/2023 09/14/2013, 11/02/2007, 06/07/2003, Additional history exists Covid-19 Vaccine ( - 2023-2 5 season) 2023 12/14/2020, 11/23/2020 Influenza Vaccine (Season Ended) 2024 01/22/2019, 04/21/2018, 12/28/2016, Additional history exists Chlamydia and Gonorrhea (GC/ CT) Screening 01/19/2025 01/20/2024 Depression Screening 01/19/2025 01/20/2024, 03/21/2023, 03/21/2023, Additional history exists Cervical Cancer Screening 05/31/2025 05/31/2024, Hepatitis B Screening Completed 2002 , 06/01/2002, 06/01/2002, Additional history exists Varicella Vaccines Completed 12/09/2008, 12/14/2007 HPV Vaccines Completed 08/18/2017, 09/02/2016 Hepatitis C Screening Completed 01/20/2024 Procedures Procedure Name Priority Date/Time Associated Diagnosis Comments PAP WITH REFLEX TO HIGH RISK HPV Routine 05/31/2024 2:18 PM CDT Screening for cervical cancer THINPREP PROCESSING (MOLECULAR COMPONENT) Routine 05/31/2024 2:18 PM CDT Screening for cervical cancer HEPATITIS PANEL, ACUTE Routine 4:00 PM COMMERCIAL LITIGATION PARALEGAL Routine screening for STI (sexually transmitted infection) N. GONORRHOEAE/C. TRACHOMATIS AMPLIFICATION Routine 01/20/2024 4:00 PM COMMERCIAL LITIGATION PARALEGAL Dysuria from Last 3 Months or Most Recently Relevant to Health Maintenance Results * ThinPrep processing (Molecular component) (05/31/2024 2:18 PM CDT) ThinPrep processing (Molecular component) Specimen received for processing. [facility] Endocervical 05/31/2024 2:18 PM CDT 06/02/2024 9:24 AM CDT us Spencer Haji MD LAB BODY FLUIDS AND STOO LS ORDERABLES Final Result [facility] Department [place] [address] [facility] * Pap with reflex to High Risk HPV and Genotyping (Cytology Component) (05/31/2024 2:18 PM CDT) Thin prep (Pap test) 05/31/2024 2:18 PM CDT 05/31/2024 2:47 PM CDT Narrative PATHOLOGY [facility] - 06/08/2024 10:06 AM CDT EPIC results best viewed via link to PDF [facility] Fifi Romero [facility] [place] [address] Note to Patients: This report may contain [...] Gender: F : 2000 (Age: 23) Address: [address] [address] Hospital #: [id number] Service: UNKNOWN Location: Patient Type: [facility] SPECIMEN Taken: 05/31/2024 Received: 05/31/2024 Accessioned: 06/01/2024 Reported: 06/08/2024 Physician(s): Spencer Haji, FINAL INTERPRETATION SOURCE OF SPECIMEN Liquid based Thin Prep pap with Reflex HPV: STATEMENT OF ADEQUACY - Satisfactory for evaluation - Endocervical cells/transformation zone sample absent GENERAL CATEGORIZATION: - Negative for squamous intraepithelial lesion or malignancy This specimen has been rescreened in accordance with this laboratory's Waiter/Waitress First Class Program. tcg/06/08/2024 10:06 JS Rodriguez(ASCP) Report Electronically Reviewed and [...] clinical information and biopsy results as indicated. [facility] Clinical Laboratory Improvement Amendments (CLIA) mandate that cytologic and histologic results be correlated for laboratory supervisor type disk quality control & improvement standards. FOR ALL HIGH-GRADE CASES [...] determined by the Surgical Pathology Department at [facility] as part of an ongoing quality consultant program and in compliance with federally mandated [...] determined by the Surgical Pathology Department of [facility]. It has not been cleared or approved by the U. S. Food and Drug Administration. Spencer Haji MD LAB CYTOLOGY ORDERABLES Final Result PATHOLOGY [facility] 3rd Floor [place], [place] [phone] * N. gonorrhoeae/C. trachomatis Amplification Urine (01/20/2024 4:00 PM COMMERCIAL LITIGATION PARALEGAL) C. trachomatis Not Detected [facility] Comment:Testing performed by : [facility], [address] [place] [address]., [id number] N. gonorrhoeae Not Detected [facility] Comment: Interpretive Data This assay detects Chlamydia trachomatis and Neisseria gonorrhoeae by nucleic acid amplification testing (NAAT). This assay has been cleared by the [place] Food and Drug administration. The performance characteristics of this test have been verified by the [facility] Molecular Infectious Disease laboratory. The performance characteristics of this test have not been evaluated in individuals less than 14 years of age. Current Interpretive Data was last revised on 2023. Testing performed by: [facility], [address] [place] [address]., [id number] Urine (None) 01/20/2024 4:00 PM COMMERCIAL LITIGATION PARALEGAL 01/21/2024 10:19 AM COMMERCIAL LITIGATION PARALEGAL Christina Avelar NP LAB MICROBIOLOGY - GENERAL ORDER JOSÉ MIGUEL Final Result [facility] [address] [address] Department [place] [address] [facility] * Hepatitis panel, acute Blood (01/20/2024 4:00 PM COMMERCIAL LITIGATION PARALEGAL) Hep A IgM Nonreactive Nonreactive Comment: Interpretive Data: If Hep A IgM Ab is reported as Equivocal, a new sample should be drawn in two weeks for testing. Current interpretive data was last revised on 19. Hep B core IgM Nonreactive Nonreactive [facility] Comment: Interpretive Data If HepB Core IgM Ab is reported as Equivocal, a new sample should be drawn in two weeks for testing. Current interpretive data was last revised on 19. Hep C Ab Nonreactive Nonreactive [facility] Comment: Interpretive Data Nonreactive: Antibodies to HCV [...] last revised on 2019. HepBsAg Nonreactive Nonreactive [facility] Blood 01/20/2024 4:00 PM COMMERCIAL LITIGATION PARALEGAL 01/20/2024 9:14 PM COMMERCIAL LITIGATION PARALEGAL Christina Avelar NP LAB MICROBIOLOGY - GENERAL ORDER JOSÉ MIGUEL Final Result [facility] [id number] [address] Department of Laboratories [place], [place] [id number] from Last 3 Months or Most Recently Relevant to Health Maintenance Insurance [facility] [address] [place], [place] [id number] [employer] [facility] Advance Directives For more information, please contact: [phone] * Full Code (Latest Code Status on File) Date Activated Date Inactivated Comments 04/11/2024 8:44 PM 04/13/2024 3:31 PM Care Teams Exhibition Organiser Relationship Specialty Start Date End Date Christina Avelar NP [address] [place] [address] PCP - General Family Medicine 01/20/24 Aixa Mckeon MD [address] [place] [address] [address] [place] [address] Referring Physician Allergy and Immunology 01/20/24
--- OUTSIDE RECORDS SUMMARY | 2024-08-22 17:25 | XMS_ITS | Encounter Summary ---
Author Organization [facility] Address [address] [place] [address] Phone Care Team Providers Care Chief Mechanical Officer Name Role Phone Unknown, Notinfile Primary Care Provider Unavail able Reason for Referral * (Routine) - Closed Specialty Diagnoses / Procedures Referred By Jacobac t Referred To Contact Diagnoses SOB (shortness of breath) Procedures Pulmonary Function Test -[facility]- [facility]; Spirometry Aixa Mckeon MD [address] [place] [address] [address] [place] [address] Phone: tel: fax: Referral ID Status Reason Start Date Expiration Date Visits Re quested Visits Authorized [id number] Closed 11/09/2021 12/09/2022 1 1 Reason for Visit * (Routine) - Closed Specialty Diagnoses / Procedures Referred By Contac t Referred To Contact Diagnoses SOB (shortness of breath) Procedures Pulmonary Function Test -[facility]- [facility]; Spirometry Aixa Mckeon MD [address] [place] [address] [address] [place] [address] Phone: tel: fax: Referral ID Status Reason Start Date Expiration Date Visits Re quested Visits Authorized [id number] Closed 11/09/2021 12/09/2022 1 1 Encounter Details Date Type Department Care Team (Latest Contact Info) Description 11/23/2021 1:23 PM CDT Hospital Encounter [facility] PFT Lab [address] [place] [address] SOB (shortness of breath) Social History Tobacco Use Types Packs/Day Years Used Date Smoking Tobacco: Never Smokeless Tobacco: Never Humiliation, Afraid, Rape, and Kick questionnair e [...] on file Legal Sex Female 1:15 PM OTOLARYNGOLOGY NURSE Gender Identity Not on file Sexual Orientation Not on file documented as of this encounter Functional Status * Audit-C Score Answer Date of Assessment Author 2 02/28/2022 11:26 AM Mary Powers RN * Question Answer Date of Assessment Author Q1: How often do you have a drink containing alcohol? 2-4 times a month 02/28/2022 11:26 AM Mary Powers RN Q2: How many drinks containing alcohol do you have on a typical day when you are drinking? Patient does not drink 07/12/2022 10:21 AM CDT Delia Irizarry CMA Q3: How often do you have six or more drinks on one occasion? Never 02/28/2022 11:26 AM Mary Powers RN documented as of this encounter Plan of Treatment Not on file documented as of this encounter Procedures Procedure Name Priority Date/Time Associated Diagnosis Comments PULMONARY FUNCTION TEST (PFT) Routine 11/23/2021 1:57 PM CDT SOB (shortness of breath) documented in this encounter Results * Pulmonary Function Test - (11/23/2021 1:57 PM CDT) FVC PRE 5.35 L [facility] FVC %PRE PRED 112 % [facility] FEV1 PRE 1.17 L [facility] FEV1 %PRE PRED 28 % [facility] FEV1/FVC PRE 21.9 % [facility] Anatomical Region Laterality Modality PFT 11/23/2021 1:31 PM CDT Narrative 11/30/2021 10:58 PM CDT SEE PDF PFT performed at:->[facility]- [facility] Procedure:->Spirometry us Aixa Mckeon MD PFT ORDERABLES Final R esult documented in this encounter Visit Diagnoses Diagnosis SOB (shortness of breath) Shortness of breath documented in this encounter Additional Health Concerns Infection Onset Date Last Indicated Resolved Time COVID: Suspected 08/28/2023 08/28/2023 08/29/2023 12:12 AM CDT COVID: Suspected 05/10/2024 05/10/2024 05/10/2024 10:18 PM OTOLARYNGOLOGY NURSE Influenza, adult 05/10/2024 05/10/2024 05/17/2024 3:07 AM OTOLARYNGOLOGY NURSE documented as of this encounter Care Teams Chief Mechanical Officer Relationship Specialty Start Date End Date Unknown, Notinfile PCP - General 02/24/21 02/21/22 documented as of this encounter
--- OUTSIDE RECORDS SUMMARY | 2024-08-22 17:25 | XMS_ITS | Patient Health Record ---
Author Organization [facility] Address [address] [place], [place] [address] Care Team Providers Care [employer] Consultant Name Role Phone Michelle Davis DO Primary Care Provider Unavailab kasie Burnett MD, Bala Unavailable [phone] Self, Referral Unavailable Unavailable Allergies Allergen (clinical drug ingredient) Drug/Non Drug Allergy documented on EMR Reaction Allergy Type Onset Date Status Penicillin Unknown Drug Allergy Active Reason For Referral No Information Medications Medication SIG (Take, Route, Frequency, Duration) Notes Start Date End Date Status controll pills as directed Not-Taking ibuprofen 200 mg 2 prn Act sheri Tylenol 325 mg 2 tab(s) orally ever y 4 hours, prn Active Social History Tobacco Use: Social History Observation Description Date Details (start date - stop date) Never Smoker NA - NA Tobacco Use: Question Answer Notes Are you a: never smoker Problems Problem Type SNOMED Code ICD Code Onset Dates Problem Status W/U Status Risk Notes Problem Shoulder joint pain (827041476) Pain in right shoulder (M25.511) Active confirmed Problem 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
--- OUTSIDE RECORDS SUMMARY | 2024-08-22 17:25 | XMS_ITS | Clinical Summary ---
Author Organization [facility] Address [address] [place] [address] Phone Care Team Providers Care Helium Arc Welder Name Role Phone Keagan Henry MD Unavailable [phone] Allergies Active Allergy Reactions Criticality Noted Date Comments Cephalexin Rash Low 07/27/2003 Penicillins Anaphylaxis Medium 11/30/2002 Shellfish-Derived Products Anaphylaxis High 12/31/19 20 Shrimp (Diagnostic) Shortness of Breath High 018 Shrimp Flavor Agent (Non-Screening) Anaphylaxis High 04/11/2020 Sulfa Antibiotics Rash 11/26/2017 Medications Norgestimate-E thinyl Estradiol (Tri-Sprintec) 0.18/0.215/0.2 5 MG-35 MCG Tablet daily. 0 Active EPINEPHrine (EPIPEN) 0.3 MG/0.3ML Solution Auto-injector 0.3 mg by Intramuscular route as needed. 9 Active ALPRAZolam (XANAX) 0.5 MG Tablet Take 0.5 mg by mouth as needed. 1 Active diphenhydrAMIN E (BENADRYL) 25 MG Capsule Take 25 mg by mouth as needed. 0 Active famotidine (PEPCID) 40 MG Tablet Take 40 mg by mouth as needed. 0 Active QUEtiapine (SEROquel) 25 MG Tablet Take 12.5 mg by mouth 2 times daily. Active fexofenadine (FAN) 180 MG Tablet Take 360 mg by mouth. 1 Active metoprolol Succinate (TOPROL-XL) 50 MG TABLET SR 24 HR Take 0.5 Tablets by mouth 2 times daily. 90 Tablet 1 1 Active montelukast (SINGULAIR) 10 MG Tablet Take 1 Tablet by mouth daily. 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, subsequent encounter 04/17/2020 Immunizations Immunization Administration Dates Next Due Covid-19, Mrna, Lnp-s, Pf, 3 0 Mcg/0.3 Ml Dose (eLifestyles) 12/14/2020 DTAP VACCINE 11/02/2007, 4,06/01/2002,04/10,02/05/2002 HIB Vaccine (PRP-T) 11/30/2002, 3,04/10/2002,02/05 Hepatitis B Vaccine, Pediatric/adolescent 2002,06/01/2002,02/05/2002,11/27 Human Papillomavirus (HPV) 9 -valent Vaccine 08/18/2017,09/02/2016 Inactivated Polio Vaccine 11/02/2007,,04/10/2002,02/05 Influenza Seasonal, Intrader mal, Preservative Free 01/07/2013 Influenza Vaccine, Quadrivalent, PF 11/0 10/2018,04/21/2018,12/28/2016,12/29,01/13/2014 Influenza, Seasonal, Injecta ble, Undefined 02/01/2011 Influenza, Trivalent, Adjuvanted, PF 02/01/2011, 02/02/2010 MMR Vaccine 11/02/2007,06/07/2003 Meningococcal Vaccine 01/22/2019,09/02/2016 Novel [id number], Leandra e Virus For Nasal Administratn 01/20/2009 TDAP Vaccine 09/14/2013 Varicella Vaccine Live 12/09/2008,12/14/2007 Family History Medical History Relation Name Comments Allergic Rhinitis Brother Allergic Rhinitis Father Angioedema Father Asthma Father Urticaria Father Allergic Rhinitis Maternal Aunt Cancer Maternal Grandmother Allergic Rhinitis Mother Urticaria Mother Allergic Rhinitis Paternal Aunt Angioedema Paternal Aunt Allergic Rhinitis Paternal Grandmother Hypertension Paternal Uncle Allergic Rhinitis Sister Asthma Sister Relation Name Status Comments Brother Father Alive Maternal Aunt Maternal Grandmother Mother Alive Paternal Aunt Paternal Grandmother Paternal Uncle Sister Social History Tobacco Use Types Packs/Day Years Used Date Smoking Tobacco: Never Smokeless Tobacco: Never Tobacco Cessation:Counseling Given: No Alcohol Use Standard Drinks/Week Comments Never 0 (1 standard drink = 0.6 oz pur e alcohol) AUDIT-C Answer Date Recorded Q1: How often do you have a drink containing alc ohol? Never 11/30/2019 Average Number of Drinks Not on file 020 Frequency of Binge Drinking Not on file 11/15 PHQ-2 Answer Date Recorded Total Score - Questions 1-9 0 04/2020 Sexually Active Control Partners Comments Never Comments No Sex and Gender Information Value Date Recorded Sex Assigned at Not on file Legal Sex Female 2:07 PM CDT Gender Identity Not on file Sexual Orientation Not on file Last Filed Vital Signs Vital Sign Reading Time Taken Comments Blood Pressure 132/77 05/23/2020 9:17 AM CRITICAL SYSTEMS TECHNICIAN Pulse 105 05/23/2020 9:17 AM CRITICAL SYSTEMS TECHNICIAN Temperature 37.1 C (98.7 F) 04/18/2020 3:13 PM CRITICAL SYSTEMS TECHNICIAN Respiratory Rate 18 05/23/2020 9:03 AM CRITICAL SYSTEMS TECHNICIAN Oxygen Saturation 97% 05/23/2020 9:03 AM CRITICAL SYSTEMS TECHNICIAN Inhaled Oxygen Concentration - - Weight 98.9 kg (218 lb) 05/23/2020 9:03 AM CRITICAL SYSTEMS TECHNICIAN Height 180.3 cm (5' 11) 05/23/2020 9:03 AM CRITICAL SYSTEMS TECHNICIAN Body Mass Index 30.4 05/23/2020 9:03 AM CRITICAL SYSTEMS TECHNICIAN Plan of Treatment Health Maintenance Due Date Last Done Comments Hepatitis C Virus (HCV) Screening 2001 Meningococcal B Immunization (1 of 2 - Standard) 2017 Pap Smear 2022 DTaP/Tdap/Td Immunization (7 - Td or Tdap) 09/15/2023 09/14/2013, 11/02/2007, 06/07/2003, Additional history exists SARS-COV-2 Immunization ( season) 2023 12/14/2020, 11/23/2020 Influenza Immunization (Season Ended) 2024 01/22/2019, 04/21/2018, 12/28/2016, Additional history exists Respiratory Syncytial Virus (RSV) Immunization (Adult) (1 - 1-dose 75+ series) 2076 Hepatitis B Immunization Completed 003, 06/01/2002, 02/05/2002, Additional history exists Measles Mumps Rubella (MMR) Immunization Discontinued 11/02/2007, 06/07/2003 Polio (IPV) Immunization Discontinued 008, 06/01/2002, 04/10/2002, Additional history exists Varicella Immunization Discontinued 12/09/2008, 2007 Human Papillomavirus (HPV) Immunization Completed 08/18/2017, 09/02/2016 Meningococcal Immunization (ACWY) Completed 01/22/2019, 09/02/2016 Pneumococcal Immunization Combined Aged Out No longer eligible based on patient's age to complete this topic Rotavirus Immunization Aged Out No lo nger eligible based on patient's age to complete this topic Insurance MEDICAID AETNA [facility] Care Teams Helium Arc Welder Relationship Specialty Start Date End Date Keagan Henry MD [address] [place] [address] Consulting Physician Cardiovascular Disease - Cardiology 04/24/20
--- OUTSIDE RECORDS SUMMARY | 2024-08-22 17:25 | XMS_ITS | Clinical Summary ---
Author Organization [facility] Address [address] [place] [address] Care Team Providers Care Patient Financial Services Coordinator Name Role Phone Unavailable Primary Care Provider Unavailabl e Source Comments [facility],non-owned Affiliates and Associated Physician Practices is amultiple site organization consisting of ambulatory clinics and hospital sitesin [place], [place], [place] and [place]. This disclosure is being madepursuant to the Care Everywhere program and may not contain all information available regarding this patient. Last updated 17.[facility] Allergies Active Allergy Reactions Criticality Noted Date Comments Cephalexin Rash Medium 07/27/2003 Contrast-Iodinated Agents For Ct/Other Anaphylaxis,Rash,Steph rtness of Breath High 09/21/2021 Per Care Everywhere record: mother states patient requires pre-meds if needing contrast (diphenhydramine, steroid) Penicillins Anaphylaxis,Urticari a,Rash High 11/30/2002 Per mother, this happened as an . Hives/rash. Unknown significance of this allergy anymore per mother as it was not a severe reaction at the time. Per Care Everywhere: Per mother, this happened as an rash. Unknown significance of this allergy anymore per mother as it was not a severe reaction at the time. 09/22/21: Per patient, possibly had reaction as a child, no memory of it. Per mom, doesn't recall reaction. Per mother, this happened as an . Hives/rash. Unknown significance of this allergy anymore per mother as it was not a severe reaction at the time. Shellfish Allergy Anaphylaxis High 12/04/2021 Sulfa Drugs Rash Medium 11/26/2017 Medications * Be aware that medications may not be up to date on this document. Alwaysverify current medications with the patient. fexofenadine (Itzel) 180 MG tablet Take 180 mg by mouth 2 times daily Active famotidine (Pepcid) 20 MG tablet Take by mouth once daily Active diphenhydrAMIN E (Benadryl) 25 MG capsule Take 25 mg by mouth every 4 hours as needed for Allergies Active albuterol HFA (Proventil; Ventolin; Proair) 108 (90 Base) MCG/ACT inhaler Inhale 2 puffs by mouth every 4 hours as needed Active acetaminophen (Tylenol) 325 MG tablet Take 2 (two) tablets by mouth every 6 hours as needed for Fever or Pain Maximum allowable Acetaminophen amount = 4 Grams (4000 mg) / 24 hours. 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 Never 01/06/2022 Q2: How many drinks containi ng alcohol do you have on a typical day when you are drinking? Patient does not drink Q3: How often do you have si x or more drinks on one occasion? Never 01/06/2022 Hunger Vital Sign Answer Date Recorded Within the past 12 months, y ou worried that your food would run out before you got the money to buy more. Never true 12/06/19 22 Within the past 12 months, t he food you bought just didn't last and you didn't have money to get more. Never true 12/05/2021 Comments Unknown Sex and Gender Information Value Date Recorded Sex Assigned at Not on file Legal Sex Female 1:53 AM CDT Gender Identity Not on file Sexual Orientation Not on file Last Filed Vital Signs Vital Sign Reading Time Taken Comments Blood Pressure 125/76 01/09/2022 8:00 AM CDT Pulse 66 01/09/2022 8:00 AM CDT Temperature 36.6 C (97.9 F) 01/09/2022 8:00 AM CDT Respiratory Rate 25 01/09/2022 8:00 AM CDT Oxygen Saturation 96% 01/09/2022 8:00 AM CDT Inhaled Oxygen Concentration 40% 01/07/2022 8 :43 AM CDT Weight 105 kg (231 lb 7.7 oz) 01/09/2022 4:00 AM CDT Height 180.3 cm (5' 11) 01/06/2022 6:51 AM CDT Body Mass Index 32.29 01/06/2022 6:51 AM CDT Plan of Treatment Health Maintenance Due Date Last Done Comments PAP SMEAR 2001 HPV VACCINE (1 - 3-dose series) 2016 CHLAMYDIA/GONORRHEA SCREENING 2017 MENINGOCOCCAL (Group B) VACCINE SHARED DECISION-MAKING (1 of 2 - Standard) 2017 DTAP/TDAP/TD VACCINES (1 - Tdap) 2020 HEPATITIS B VACCINE (1 of 3 - 19+ 3-dose series) 2020 COVID-19 VACCINE (3 - season) 2023 12/14/2020, 11/23/2020 DEPRESSION SCREENING 03/17/2024 INFLUENZA VACCINE (Season Ended) 2024 01/22/2019, 04/21/2018, 12/28/2016, Additional history exists ZOSTER VACCINE (1 of 2) 11/28/2051 HEPATITIS C SCREENING Completed 01/06/2022 HIV SCREENING Completed 01/06/2022 HIB VACCINE Aged Out No longer eligi ble based on patient's age to complete this topic MENINGOCOCCAL GROUPS A/C/Y/W VACCINE Aged Out No longer eligible based on patient's age to complete this topic PNEUMOCOCCAL VACCINE Aged Out No long er eligible based on patient's age to complete this topic Procedures Procedure Name Priority Date/Time Associated Diagnosis Comments HEPATITIS C AB SCREEN RFLX NAAT QUANT STAT 01/06/2022 5:54 AM CDT HIV-1 HIV-2 ANTIBODY + HIV P24 AG PANEL STAT 01/06/2022 5:54 AM CDT from Last 3 Months or Most Recently Relevant to Health Maintenance Results * HEPATITIS C AB SCREEN RFLX NAAT QUANT (01/06/2022 5:54 AM CDT) Hepatitis C Antibody Non-react sheri Non-reac tive 01/06/2022 7:30 AM CDT [facility] Comment:Hepatitis C Antibody screen indicates no serologic evidence of past or current infection with Hepatitis C Virus. Patients with unexplained liver disease who are immunocompromised or suspected of having acute Hepatitis C infection may benefit from Nucleic Acid Test (CASSIE) for Hepatitis C Viral RNA to confirm Hepatitis C status. Blood BLOOD SPECIMEN / Unknown Venipuncture / Unknown 01/06/2022 5:54 AM CDT 01/06/2022 6:01 AM CDT us Alo Carroll MD LAB - CHEMISTRY ORDERABLES Final Result [address] [address], [facility] [phone] * HIV-1 HIV-2 ANTIBODY + HIV P24 AG PANEL (01/06/2022 5:54 AM CDT) HIV Antigen/Antibod y 1 & 2 Non-reacti ve Non-react sheri 01/06/2022 7:30 AM CDT [facility] Comment:No Laboratory eviden ce of HIV infection. Blood BLOOD SPECIMEN / Unknown Venipuncture / Unknown 01/06/2022 5:54 AM CDT 01/06/2022 6:01 AM CDT us Alo Carroll MD LAB - CHEMISTRY ORDERABLES Final Result Performing Organization Address City/[facility]/ZIP Co de Phone Number [address] [address], [facility] [phone] from Last 3 Months or Most Recently Relevant to Health Maintenance Insurance MEDICAID [facility] Advance Directives * Full Code (Latest Code Status on File) Date Activated Date Inactivated Comments 01/06/2022 5:21 AM 01/09/2022 11:42 AM * Full Code Date Activated Date Inactivated Comments 12/04/2021 5:10 AM 12/06/2021 1:40 PM
[2024-08-22 17:28] VITALS: BP 129/76; PULSE 124; RESP 24; O2SAT 100; O2SAT 99
[2024-08-22] MEDS: diphenhydrAMINE HCl INJ 50 MG/ML VIAL 25 MG IV PUSH (17:44)
--- OUTSIDE RECORDS SUMMARY | 2024-08-22 17:45 | XMS_ITS | Referral Summary ---
Author Organization [facility] Address [address] [place] [address] Phone Care Team Providers Care Forensic Computer Examiner Name Role Phone Aixa Mckeon MD Unavailable Christina Avelar NP Primary Care Provider Encounters Date Type Department Care Team Description 08/11/2024 8:30 AM CDT Clinical Support [facility] Allergy and Immunology [address] [place] [address] Chronic idiopathic urticaria (Primary Dx) 08/09/2024 9:15 AM CDT Office Visit [facility] at [address] [address] Mattie Velez NP Pain of left calf (Primary Dx) 08/05/2024 8:30 AM CDT Office Visit [facility] at [address] [address] Tianna Solis NP Mast cell activation syndrome (Primary Dx); Rash and nonspecific skin eruption; Nausea 06/22/2024 Orders Only [facility] at [address] [address] Christina Avelar NP Nausea 06/10/2024 Telephone [facility] Medical [facility] Primary Care at [address] [address] Christina Avelar NP PA for Ondansetron 4MG 06/10/2024 10:30 AM CDT Office Visit [facility] at [address] [address] Tianna Solis NP Nausea (Primary Dx); 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 [address] [place] [address] Spencer Haji MD Pap with reflex to High Risk HPV and Genotyping (Cytology Component) 05/31/2024 2:18 PM CDT - 05/31/2024 11:59 PM CDT Hospital Encounter [facility] [address] [place] [address] Screening for cervical cancer Discharge Disposition: Discharge to home or self care 05/31/2024 1:00 PM CDT Office Visit [facility] [address] [place] [address] Outpatient Health 3rd Floor [address] [place] [address] Spencer Haji MD Encounter for other general [...] 04/13/2024 Assessment & Plan (04/13/2024 5:[address]): Weaned off precedex in ICU. Has xanax at home but seldom uses it. -Continue ativan prn for anxiety and insomnia. Patient reports she does not need any ativan to go home with after discharge POTS (postural orthostatic tachycardia syndrome) 04/13/2024 Assessment & Plan (04/13/2024 5:[address]): Patient has a history of spontaneous tachycardia. Briefly on metoprolol in 2022 but later discontinued after several months. 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 Mckeon. Per last note 07/12/22, 24 hour urine prostaglandin, methylhistamine, leukotriene, tryptase WNL. -Continue allergy meds as listed elsewhere -resume home aspirin 325 mg daily at discharge for flushing Anaphylaxis, initial encounter 04/11/2024 Assessment & Plan (04/13/2024 12:[address]): Patient presented with pruritus, tachycardia, tongue swelling, SOB. She was treated with epinephrine IM injection followed by epinephrine GTT 04/11-04/12 in ICU. Transferred to the floor on 04/13 after weaned of gtt. Patient also received fluid resuscitation, dexamethasone 10 mg *1, solu-medrol 60 mg *1 and 40 mg *1. [place] almost back to baseline after transfer except [...] mg IM (brand of epinephrine), sent to [facility] pharmacy [place] -Allergy arranged Xolair injection in outpatient setting [...] 03/27/2022 Assessment & Plan (01/20/2024 3:[address]): Stable. Follows closely with classified advertising clerk. Hx of allergy to shellfish 03/27/2022 History of anaphylaxis 03/27/2022 Mild intermittent asthma without complication Inappropriate sinus tachycardia 03/27/2022 Overview (03/27/2022): reprots borderline dx for POTS. monitor. 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 GONORRHOEAE/C. TRACHOMATIS AMPLIFICATION Routine 01/20/2024 4:[address] Dysuria from Last 3 Months or Most Recently Relevant to Health Maintenance Results * ThinPrep processing (Molecular component) (05/31/2024 2:18 PM CDT) ThinPrep processing (Molecular component) Specimen received for processing. [facility] Endocervical 05/31/2024 2:18 PM CDT 06/02/2024 9:24 AM CDT us Spencer Haji MD LAB BODY FLUIDS AND STOO LS ORDERABLES Final Result [facility] Department [place] [address] [facility] * Pap with reflex to High Risk HPV and Genotyping (Cytology Component) (05/31/2024 2:18 PM CDT) Thin prep (Pap test) 05/31/2024 2:18 PM CDT 05/31/2024 2:47 PM CDT Narrative PATHOLOGY [facility] - 06/08/2024 10:06 AM CDT EPIC results best viewed via link to PDF [facility] Fifi Romero [facility] [place] [address] Note to Patients: This report may contain [...] Gender: F : 2000 (Age: 23) Address: [address] [place] [address], [place] [address] Hospital #: [id number] Service: UNKNOWN Location: Patient Type: [facility] SPECIMEN Taken: 05/31/2024 Received: 05/31/2024 Accessioned: 06/01/2024 Reported: 06/08/2024 Physician(s): Spencer Haji, FINAL INTERPRETATION SOURCE OF SPECIMEN Liquid based Thin Prep pap with Reflex HPV: STATEMENT OF ADEQUACY - Satisfactory for evaluation - Endocervical cells/transformation zone sample absent GENERAL CATEGORIZATION: - Negative for squamous intraepithelial lesion or malignancy This specimen has been rescreened in accordance with this laboratory's Net Developer Software Engineer C Program. [facility]/06/08/2024 10:06 JS Rodriguez(ASCP) Report Electronically Reviewed and [...] clinical information and biopsy results as indicated. [facility] Clinical Laboratory Improvement Amendments (CLIA) mandate that cytologic and histologic results be correlated for laboratory quality compliance coordinator & improvement standards. FOR ALL HIGH-GRADE CASES [...] determined by the Surgical Pathology Department at [facility] as part of an ongoing water quality tester program and in compliance with federally mandated [...] determined by the Surgical Pathology Department of [facility]. It has not been cleared or approved by the U. S. Food and Drug Administration. Spencer Haji MD LAB CYTOLOGY ORDERABLES Final Result PATHOLOGY [facility] 3rd Floor [place], [place] [phone] * N. gonorrhoeae/C. trachomatis Amplification Urine (01/20/2024 4:[address]) C. trachomatis Not Detected [facility] Comment:Testing performed by : [facility], [address] [place] [address]., [id number] N. gonorrhoeae Not Detected [facility] Comment: Interpretive Data This assay detects Chlamydia trachomatis and Neisseria gonorrhoeae by nucleic acid amplification testing (NAAT). This assay has been cleared by the [place] Food and Drug administration. The performance characteristics of this test have been verified by the [facility] Molecular Infectious Disease laboratory. The performance characteristics of this test have not been evaluated in individuals less than 14 years of age. Current Interpretive Data was last revised on 2023. Testing performed by: [facility], [address] [place] [address]., [id number] Urine (None) 01/20/2024 4:[address] 01/21/2024 10:[address] Christina Avelar NP LAB MICROBIOLOGY - GENERAL ORDER JOSÉ MIGUEL Final Result [facility] [address] Department [place] [address] [facility] * Hepatitis panel, acute Blood (01/20/2024 4:[address]) Hep A IgM Nonreactive Nonreactive Comment: Interpretive [...] last revised on 2019. HepBsAg Nonreactive Nonreactive [facility] Blood 01/20/2024 4:[address] 01/20/2024 9:[address] Christina Avelar NP LAB MICROBIOLOGY - GENERAL ORDER JOSÉ MIGUEL Final Result [facility] [address] Department [place] [address] from Last 3 Months or Most Recently Relevant to Health Maintenance Insurance [employer] [facility] [place] [address] [place] [id number] [employer] [facility]TER [facility] AETNA BETTER [facility] Advance Directives For more information, please contact: [phone] * Full Code (Latest Code Status on File) Date Activated Date Inactivated Comments 04/11/2024 8:44 PM 04/13/2024 3:31 PM Care Teams Forensic Computer Examiner Relationship Specialty Start Date End Date Christina Avelar NP [address] [place] [address] PCP - General Family Medicine 01/20/24 Aixa Mckeon MD [address] [facility] [address] [place] [address] Referring Physician Allergy and Immunology 01/20/24
--- OUTSIDE RECORDS SUMMARY | 2024-08-22 17:45 | XMS_ITS | Clinical Summary ---
Author Organization [facility] Address [address] [place] [address] Phone Care Team Providers Care Pai Gow Manager Name Role Phone Aixa Mckeon MD Unavailable Christina Avelar NP Primary Care Provider [phone] Allergies Active Allergy Reactions Criticality Noted Date [...] 04/13/2024 Assessment & Plan (04/13/2024 5:07 AM CARNALLITE PLANT OPERATOR): Weaned off precedex in ICU. Has xanax at home but seldom uses it. -Continue ativan prn for anxiety and insomnia. Patient reports she does not need any ativan to go home with after discharge POTS (postural orthostatic tachycardia syndrome) 04/13/2024 Assessment & Plan (04/13/2024 5:14 AM CARNALLITE PLANT OPERATOR): Patient has a history of spontaneous tachycardia. Briefly on metoprolol in 2022 but later discontinued after several months. 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 Mckeon. Per last note 07/12/22, 24 hour urine prostaglandin, methylhistamine, leukotriene, tryptase WNL. -Continue allergy meds as listed elsewhere -resume home aspirin 325 mg daily at discharge for flushing Anaphylaxis, initial encounter 04/11/2024 Assessment & Plan (04/13/2024 12:25 PM CARNALLITE PLANT OPERATOR): Patient presented with pruritus, tachycardia, tongue swelling, SOB. She was treated with epinephrine IM injection followed by epinephrine GTT 04/11-04/12 in ICU. Transferred to the floor on 04/13 after weaned of gtt. Patient also received fluid resuscitation, dexamethasone 10 mg *1, solu-medrol 60 mg *1 and 40 mg *1. Stuart almost back to baseline after transfer except [...] of epinephrine), sent to [facility] in [place] -Allergy arranged Xolair injection in outpatient setting [...] 03/27/2022 Assessment & Plan (01/20/2024 3:04 PM CARNALLITE PLANT OPERATOR): Stable. Follows closely with content developer. Hx of allergy to shellfish 03/27/2022 History of anaphylaxis 03/27/2022 Mild intermittent asthma without complication Inappropriate sinus tachycardia 03/27/2022 Overview (03/27/2022): reprots borderline dx for POTS. monitor. 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 Chronic idiopathic urticaria 03/05/2021 SOB (shortness of breath) Hoarseness Resolved Problems Problem Noted Date Diagnosed Date Resolved Date Cough 03/27/2022 Encounters Date Type Department Care Team Description 08/11/2024 8:30 AM CDT Clinical Support [facility] Allergy and Immunology [address] [place] [address] Chronic idiopathic urticaria (Primary Dx) 08/09/2024 9:15 AM CDT Office Visit [facility] at [address] [address] Velez, Mattie B., SOCIAL MEDIA MARKETER Pain of left calf (Primary Dx) 08/05/2024 8:30 AM CDT Office Visit [facility] at [address] [address] Tianna Solis NP Mast cell activation syndrome (Primary Dx); Rash and nonspecific skin eruption; Nausea 06/22/2024 Orders Only [facility] Medical [facility] Primary Care at [address] [address] Christina Avelar NP Nausea 06/10/2024 10:30 AM CDT Office Visit [facility] at [address] [address] Tianna Solis NP Nausea (Primary Dx); Mast cell activation syndrome 06/10/2024 Telephone [facility] at [address] [address] Christina Avelar NP PA for Ondansetron 4MG 06/08/2024 Results Follow-Up [facility] [address] [place] [address] Spencer Haji MD Pap with reflex to High Risk HPV and Genotyping (Cytology Component) 05/31/2024 2:18 PM CDT - 05/31/2024 11:59 PM CDT Hospital Encounter [facility] PATHOLOGY [address] [address] Screening for cervical cancer Discharge Disposition: Discharge to home or self care 05/31/2024 1:00 PM CDT Office Visit [facility] 3rd Floor [address] [place] [address] Spencer Haji MD Encounter for other general [...] Hx Other cancer Neg Hx no breast, teletypewriter operator, or colon cancers Relation Name Status Comments [...] on file Legal Sex Female 1:15 PM CARNALLITE PLANT OPERATOR Gender Identity Not on file Sexual Orientation [...] cancer HEPATITIS PANEL, ACUTE Routine 4:00 PM CARNALLITE PLANT OPERATOR Routine screening for STI (sexually transmitted infection) N. GONORRHOEAE/C. TRACHOMATIS AMPLIFICATION Routine 01/20/2024 4:00 PM CARNALLITE PLANT OPERATOR Dysuria from Last 3 Months or Most Recently Relevant to Health Maintenance Results * ThinPrep processing (Molecular component) (05/31/2024 2:18 PM CDT) ThinPrep processing (Molecular component) Specimen received for processing. [facility] Endocervical 05/31/2024 2:18 PM CDT 06/02/2024 9:24 AM CDT us Spencer Haji MD LAB BODY FLUIDS AND STOO LS ORDERABLES Final Result [facility] Department [place] [address] [facility] * Pap with reflex to High Risk HPV and Genotyping (Cytology Component) (05/31/2024 2:18 PM CDT) Thin prep (Pap test) 05/31/2024 2:18 PM CDT 05/31/2024 2:47 PM CDT Narrative PATHOLOGY [facility] - 06/08/2024 10:06 AM CDT EPIC results best viewed via link to PDF [facility] Fifi Romero [facility] [place] [address] Note to Patients: This report may contain [...] F : 2000 (Age: 23) Address: [address] [address] Hospital #: [id number] Service: UNKNOWN Location: Patient Type: [facility] SPECIMEN Taken: 05/31/2024 Received: 05/31/2024 Accessioned: 06/01/2024 Reported: 06/08/2024 Physician(s): Spencer Haji, FINAL INTERPRETATION SOURCE OF SPECIMEN Liquid based Thin Prep pap with Reflex HPV: STATEMENT OF ADEQUACY - Satisfactory for evaluation - Endocervical cells/transformation zone sample absent GENERAL CATEGORIZATION: - Negative for squamous intraepithelial lesion or malignancy This specimen has been rescreened in accordance with this laboratory's Bathhouse Keeper Program. tcg/06/08/2024 10:06 JS Rodriguez(ASCP) Report Electronically [...] clinical information and biopsy results as indicated. [facility] Clinical Laboratory Improvement Amendments (CLIA) mandate that cytologic and histologic results be correlated for laboratory quality improvement engineer & improvement standards. FOR ALL HIGH-GRADE CASES [...] determined by the Surgical Pathology Department at [facility] as part of an ongoing machined parts quality inspector program and in compliance with federally mandated [...] determined by the Surgical Pathology Department of [facility]. It has not been cleared or approved by the U. S. Food and Drug Administration. Spencer Haji MD LAB CYTOLOGY ORDERABLES Final Result PATHOLOGY [facility] 3rd Floor [place], [place] [phone] * N. gonorrhoeae/C. trachomatis Amplification Urine (01/20/2024 4:00 PM CARNALLITE PLANT OPERATOR) C. trachomatis Not Detected [facility] Comment:Testing performed by : [facility], [address] [place] [address]., [address] N. gonorrhoeae Not Detected [facility] Comment: Interpretive Data This assay detects Chlamydia trachomatis and Neisseria gonorrhoeae by nucleic acid amplification testing (NAAT). This assay has been cleared by the [place] Food and Drug administration. The performance characteristics of this test have been verified by the [facility] Molecular Infectious Disease laboratory. The performance characteristics of this test have not been evaluated in individuals less than 14 years of age. Current Interpretive Data was last revised on 2023. Testing performed by: [facility], [address] [place] [address]., [id number] Urine (None) 01/20/2024 4:00 PM CARNALLITE PLANT OPERATOR 01/21/2024 10:19 AM CARNALLITE PLANT OPERATOR Christina Avelar NP LAB MICROBIOLOGY - GENERAL ORDER JOSÉ MIGUEL Final Result [facility] [address] [address] Department [place] [address] [facility] * Hepatitis panel, acute Blood (01/20/2024 4:00 PM CARNALLITE PLANT OPERATOR) Hep A IgM Nonreactive Nonreactive Comment: Interpretive [...] on 19. Hep C Ab Nonreactive Nonreactive [facility] Comment: Interpretive Data Nonreactive: Antibodies to HCV [...] on 2019. HepBsAg Nonreactive Nonreactive [facility] Blood 01/20/2024 4:00 PM CARNALLITE PLANT OPERATOR 01/20/2024 9:14 PM CARNALLITE PLANT OPERATOR Christina Avelar NP LAB MICROBIOLOGY - GENERAL ORDER JOSÉ MIGUEL Final Result [facility] [address] [address] Department of Laboratories [place], [place] [id number] from Last 3 Months or Most Recently Relevant to Health Maintenance Insurance [facility] [address] [place], [place] [id number] [facility] Advance Directives For more information, please contact: [phone] * Full Code (Latest Code Status on File) Date Activated Date Inactivated Comments 04/11/2024 8:44 PM 04/13/2024 3:31 PM Care Teams Pai Gow Manager Relationship Specialty Start Date End Date Christina Avelar NP [address] [place] [address] PCP - General Family Medicine 01/20/24 Aixa Mckeon MD [address] [place] [address] [address] [place] [address] Referring Physician Allergy and Immunology 01/20/24
--- OUTSIDE RECORDS SUMMARY | 2024-08-22 17:45 | XMS_ITS | Encounter Summary ---
Author Organization [facility] Address [address] [place] [address] Phone Care Team Providers Care Dispatch Associate Name Role Phone Unknown, Notinfile Primary Care Provider Unavail able Reason for Referral * (Routine) - Closed Specialty Diagnoses / Procedures Referred By Jacobac t Referred To Contact Diagnoses SOB (shortness of breath) Procedures Pulmonary Function Test -[facility]; Spirometry Aixa Mckeon MD [address] [place] [address] [address] [place] [address] Phone: tel: fax: Referral ID Status Reason Start Date Expiration Date Visits Re quested Visits Authorized [id number] Closed 11/09/2021 12/09/2022 1 1 Reason for Visit * (Routine) - Closed Specialty Diagnoses / Procedures Referred By Contac t Referred To Contact Diagnoses SOB (shortness of breath) Procedures Pulmonary Function Test -[facility]; Spirometry Aixa Mckeon MD [address] [place] [address] [address] [place] [address] Phone: tel: fax: Referral ID Status Reason Start Date Expiration Date Visits Re quested Visits Authorized [id number] Closed 11/09/2021 12/09/2022 1 1 Encounter Details Date Type Department Care Team (Latest Contact Info) Description 11/23/2021 1:23 PM CDT Hospital Encounter [facility] PFT Lab [address] [place] [address] SOB (shortness of breath) Social [...] on file Legal Sex Female 1:15 PM COMBINATION OPERATOR Gender Identity Not on file Sexual [...] 1:57 PM CDT) FVC PRE 5.35 L [facility] FVC %PRE PRED 112 % [facility] FEV1 PRE 1.17 L [facility] FEV1 %PRE PRED 28 % [facility] FEV1/FVC PRE 21.9 % [facility] Anatomical Region Laterality Modality PFT 11/23/2021 1:31 PM CDT Narrative 11/30/2021 10:58 PM CDT SEE PDF PFT performed at:->[facility] Adult PFT [facility]- [facility] Procedure:->Spirometry us Aixa Mckeon MD PFT ORDERABLES Final R esult documented in this encounter Visit Diagnoses Diagnosis SOB (shortness of breath) Shortness of breath documented in this encounter Additional Health Concerns Infection Onset Date Last Indicated Resolved Time COVID: Suspected 08/28/2023 08/28/2023 08/29/2023 12:12 AM CDT COVID: Suspected 05/10/2024 05/10/2024 05/10/2024 10:18 PM COMBINATION OPERATOR Influenza, adult 05/10/2024 05/10/2024 05/17/2024 3:07 AM COMBINATION OPERATOR documented as of this encounter Care Teams Dispatch Associate Relationship Specialty Start Date End Date Unknown, Notinfile PCP - General 02/24/21 02/21/22 documented as of this encounter
--- OUTSIDE RECORDS SUMMARY | 2024-08-22 17:45 | XMS_ITS | Clinical Summary ---
Author Organization [facility] Address [address] [place] [address] Phone Care Team Providers Care Laundromat Worker Name Role Phone Keagan Henry MD Unavailable [phone] Allergies Active Allergy Reactions Criticality Noted Date [...] Lnp-s, Pf, 3 0 Mcg/0.3 Ml Dose ([employer]) 12/14/2020 DTAP VACCINE 11/02/2007, 4,06/01/2002,04/10,02/05/2002 HIB Vaccine (PRP-T) 11/30/2002, 3,04/10/2002,02/05 Hepatitis B Vaccine, Pediatric/adolescent 2002,06/01/2002,02/05/2002,11/27 Human Papillomavirus (HPV) 9 -valent Vaccine 08/18/2017,09/02/2016 Inactivated Polio Vaccine 11/02/2007,,04/10/2002,02/05 Influenza Seasonal, Intrader mal, Preservative Free 01/07/2013 Influenza Vaccine, Quadrivalent, PF 11/0 10/2018,04/21/2018,12/28/2016,12/29,01/13/2014 Influenza, Seasonal, Injecta ble, Undefined 02/01/2011 Influenza, Trivalent, Adjuvanted, PF 02/01/2011, 02/02/2010 MMR Vaccine 11/02/2007,06/07/2003 Meningococcal Vaccine 01/22/2019,09/02/2016 Novel [id number], Leandra e Virus For Nasal Administratn 01/20/2009 [...] Comments Blood Pressure 132/77 05/23/2020 9:17 AM MD UROLOGIST Pulse 105 05/23/2020 9:17 AM MD UROLOGIST Temperature 37.1 C (98.7 F) 04/18/2020 3:13 PM MD UROLOGIST Respiratory Rate 18 05/23/2020 9:03 AM MD UROLOGIST Oxygen Saturation 97% 05/23/2020 9:03 AM MD UROLOGIST Inhaled Oxygen Concentration - - Weight 98.9 kg (218 lb) 05/23/2020 9:03 AM MD UROLOGIST Height 180.3 cm (5' 11) 05/23/2020 9:03 AM MD UROLOGIST Body Mass Index 30.4 05/23/2020 9:03 AM MD UROLOGIST Plan of Treatment Health Maintenance Due Date [...] to complete this topic Insurance MEDICAID [facility]NA [facility] Care Teams Laundromat Worker Relationship Specialty Start Date End Date Keagan Henry MD [address] [place] [address] Consulting Physician Cardiovascular Disease - Cardiology 04/24/20
--- OUTSIDE RECORDS SUMMARY | 2024-08-22 17:45 | XMS_ITS | Clinical Summary ---
Author Organization [facility] [employer] Address [address] [place] [address] Care Team Providers Care Human Resources Benefits Coordinator Name Role Phone Unavailable Primary Care Provider Unavailabl e Source Comments [facility],non-owned Affiliates and Associated Physician Practices is amultiple site organization consisting of ambulatory clinics and hospital sitesin [place], [place], [place] and [place]. This disclosure is being madepursuant to the Care Everywhere program and may not contain all information available regarding this patient. Last updated 17.[facility] [employer] Allergies Active Allergy Reactions Criticality Noted Date [...] sheri Non-reac tive 01/06/2022 7:30 AM CDT [facility] Comment:Hepatitis C Antibody screen indicates no [...] MD LAB - CHEMISTRY ORDERABLES Final Result [address] [address], [facility] [phone] * HIV-1 HIV-2 ANTIBODY + HIV P24 AG PANEL (01/06/2022 5:54 AM CDT) HIV Antigen/Antibod y 1 & 2 Non-reacti ve Non-react sheri 01/06/2022 7:30 AM CDT [facility] Comment:No Laboratory eviden ce of HIV infection. Blood BLOOD SPECIMEN / Unknown Venipuncture / Unknown 01/06/2022 5:54 AM CDT 01/06/2022 6:01 AM CDT us Alo Carroll MD LAB - CHEMISTRY ORDERABLES Final Result Performing Organization Address City/[facility]/ZIP Co de Phone Number [address] [address], [facility] [phone] from Last 3 Months or Most Recently Relevant to Health Maintenance [facility] Advance Directives * Full Code (Latest Code Status on File) Date Activated Date Inactivated Comments 01/06/2022 5:21 AM 01/09/2022 11:42 AM * Full Code Date Activated Date Inactivated Comments 12/04/2021 5:10 AM 12/06/2021 1:40 PM
--- OUTSIDE RECORDS SUMMARY | 2024-08-22 17:45 | XMS_ITS | Continuity of Care Document ---
Author Organization [facility] Address [address] [place] [address] Phone Care Team Providers Care Interactive Multimedia Designer Name Role Phone Vicki Bronson PTA Unavailable [...] Date Provider Providers Copied on Encounter [facility], [place], [place], [id number], tel:[phone] [place] Other articular cartilage disorders, right shoulderPain in right shoulderBursitis of right shoulder 0-201 9 Aiyana Cohen. . Referring Provider: Bala Grier, [address] [place] [address], [place], [address]. tel:[phone] [facility], [place], [place], [id number], tel:[phone] [place] Other articular cartilage disorders, right shoulderPain in right shoulderBursitis of right shoulder July-2 - 9 Dehmer Vicki. . Referring Provider: Bala Grier, [address] [facility], [place], [address]. tel:[phone] [facility], [address], [place], [place], [id number], [place] tel:[phone] [place] Other articular cartilage disorders, right shoulderPain in right shoulderBursitis of right shoulder 9 Dehmer Vicki. . Referring Provider: Bala Grier, [address] [facility], [place], [address]. tel:[phone] [facility], [address], [place], [place], [id number], [place] tel:[phone] [place] Other articular cartilage disorders, right shoulderPain in right shoulderBursitis of right shoulder 9 Keturah Russo. . Referring Provider: Bala Grier, [address] [facility], [place], [address]. tel:[phone] [facility], [address], [place], [place], [id number], [place] tel:[phone] [place] Other articular cartilage disorders, right shoulderPain in right shoulderBursitis of right shoulder July-0 9-201 9 Dehmer Vicki. . Referring Provider: Bala Grier, [address] [facility], [place], [address]. tel:[phone] [facility], [address], [place], [place], [address], [place] tel:[phone] [place] Other articular cartilage disorders, right shoulderPain in right shoulderBursitis of right shoulder July-0 2- 9 Dehmer Vicki. . Referring Provider: Bala Grier, [address] [facility], [place], [address]. tel:[phone] [facility], [address], [place], [place], [id number], [place] tel:[phone] [place] Other articular cartilage disorders, right shoulderPain in right shoulderBursitis of right shoulder Apr-3 0-201 9 Dehmer Vicki. . Referring Provider: Bala Grier, [address] [facility], [place], [address]. tel:[phone] [facility], [place], [place], [address], [place] tel:[phone] [place] Other articular cartilage disorders, right shoulderPain in right shoulderBursitis of right shoulder Apr-2 3-201 9 Dehmer Vicki. . Referring Provider: Bala Grier, [address] [facility], [place], [address]. tel:[phone] [facility], [address], [place], [place], [address], [place] tel:[phone] [place] Other articular cartilage disorders, right shoulderPain in right shoulderBursitis of right shoulder Apr-1 8-201 9 Dehmer Vicki. . Referring Provider: Bala Grier, [address] [facility], [place], [address]. tel:[phone] [facility], [address], [place], [place], [address], [place] tel:[phone] [place] Other articular cartilage disorders, right shoulderPain in right shoulderBursitis of right shoulder Apr-1 6-201 9 Keturah Russo. . Referring Provider: Bala Grier, [address] [facility], [place], [address]. tel:[phone] [facility], [place], [place], [address], [place] tel:[phone] [place] No Information 1201 8 Ronny Ochoa. . Referring Provider: Physician Liza. [facility], [place], [place], [id number], [place] tel:[phone] [place] No Information Mar-0 7-201 6 Keturah Rafaela. . Referring Provider: [address], [place], [address]. tel:[phone] [facility], [address], [place], [place], [address], tel:[phone] [place] No Information Mar-0 4-201 6 Dehmer Vicki. . Referring Provider: [address], [place], [address]. tel:[phone] [facility], [address], [place], [place], [address], tel:[phone] [place] No Information b-2 2-201 6 Dehmer Vicki. . Referring Provider: [address], [place], [address]. tel:[phone] [facility], [address], [place], [place], [id number], tel:[phone] [place] No Information b- 5-201 6 Dehmer Vicki. . Referring Provider: [address], [place], [address]. tel:[phone] [facility], [address], [place], [place], [address], tel:[phone] [place] No Information b- 5-201 6 Keturah Rafaela. . [facility], [address], [place], [place], [id number], [place] tel:[phone] [place] No Information b- 0-201 6 Dehmer Vicki. . Referring Provider: [address], [place], [address]. tel:[phone] [facility], [address], [place], [place], [address], tel:[phone] [place] No Information 6 Keturah Russo. . Referring Provider: [address], [place], [address]. tel:[phone] [facility], [address], [place], [place], [address], [place] tel:[phone] [place] No Information b0 6 Dehmer Vicki. . Referring Provider: [address], [place], [address]. tel:[phone] [facility], [address], [place], [place], [address], tel:[phone] [place] No Information 0 6 Keturah Russo. . Referring Provider: [address], [place], [address]. tel:[phone] [facility], [address], [place], [place], [address], [place] tel:[phone] [place] No Information 6 Dehmer Vicki. . Referring Provider: [address], [place], [address]. tel:[phone] [facility], [address], [place], [place], [address], [place] tel:[phone] [place] No Information 6 Dehmer Vicki. . Referring Provider: [address], [place], [address]. tel:[phone] [facility], [address], [place], [place], [address], [place] tel:[phone] [place] No Information 6 Dehmer Vicki. . Referring Provider: [address] , [place], [address]. tel:[phone] [facility], [address], [place], [place], [id number], tel:[phone] [place] No Information 6 Keturah Russo. . [facility], [place], [place], [address], tel:[phone] [place] Pain in right kneeStiffness of unspecified knee, not elsewhere classifiedMuscle weakness (generalized)Effu wilber, left knee 6 Keturah Russo. . Referring Provider: Michelle Davis, [address] , [place], [address]. tel:[phone] Family History Family Member Type Diagnosis Age At Onset No Information Payers Payer name Insurance type Covered libertarian ID maegan mckenna(s) Financial Assistance Social History [...]
[2024-08-22] MEDS: FAMOTIDINE 20 MG/2 ML VIAL IV PUSH (17:47)
[2024-08-22] MEDS: methylPREDNISolone SOD SUCC 125 MG VIAL IV PUSH (17:50)
[2024-08-22] MEDS: ONDANSETRON INJ 4 MG/2 ML VIAL IV PUSH (17:52)
--- NOTE | 2024-08-22 18:03 | ED.ALLEREA ---
HPI - Allergic Reaction General Chief complaint: Allergic Reaction Stated complaint: anaphylactic reaction to shellfish Time Seen by Provider: 08/22/24 17:31 History of Present Illness HPI narrative: Patient is a 23-year-old female who presents ER with concerns for anaphylactic reaction to shellfish. Somebody walked by her with some shrimp and she reports she has an airborne allergy and she began having cough and throat discomfort. She gave herself epinephrine as well as Zyrtec at home. Symptoms occurred 30 minutes prior to arrival. No chest tightness. Has history of tracheal stenosis and has not had any issues with it for a while. She sees specialists at [facility] in [place]. Speaking in full sentences but does have frequent coughing. Related Data Home Medications ?Medication ?Instructions ?Recorded ?Confirmed ?Last Taken ?Type albuterol sulfate 90 mcg/actuation 1 - 2 puff inhalation Q4-6H PRN 01/04/22 05/14/22 Unknown History aerosol inhaler Shortness Of Breath Or Wheezing cromolyn 100 mg/5 mL oral 100 mg PO TIDHS 05/14/22 05/15/22 05/14/22 History concentrate famotidine 20 mg tablet (Pepcid) 20 mg PO DAILY 05/14/22 05/14/22 05/14/22 History fexofenadine 180 mg tablet 180 mg PO BID 05/14/22 05/14/22 05/14/22 History montelukast 10 mg tablet 10 mg PO DAILY 05/14/22 05/14/22 05/14/22 History (Singulair) omalizumab 150 mg/mL subcutaneous See Rx Instructions .Route .COMPLEX 05/14/22 05/14/22 05/10/22 History syringe (Xolair) Allergies Allergy/AdvReac Type Severity Reaction Status Date / Time shellfish derived Allergy Severe Anaphylaxis Verified 02/22/22 09:21 Review of Systems Review of Systems: All systems reviewed & are unremarkable except as noted in HPI and below Constitutional: Constitutional: Reports no additional constitutional complaints ENT: Reports system reviewed and no additional complaints, except as documented Cardiovascular: Cardiovascular: Reports no additional cardiovascular complaints Respiratory: Respiratory: Reports no additional respiratory complaints Gastrointestinal: Gastrointestinal: Reports no additional gastrointestinal complaints Allergic/Immunologic: Allergic/Immunologic: Reports no additional allergic/immunologic complaints [facility] Past Medical History Medical History Anxiety 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 Surgical History Surgical History History of removal of cyst Hand. Family History Family History Other Family history non-contributory Social History Social History Social History: Surrogate medical decision maker: Krystin (mother) or Luis (sister) Maksim. Code status: Full code. Smoking status: Never smoker Second hand tobacco smoke exposure: No Alcohol intake: current Drinks per week: 1 Substance use: never Lack of Transportation: No Lack of Food: Never True Current Housing: I Have Housing Concerned About Future Housing: No Difficulty Paying Gas/Electric Bills: No Difficulty Paying for Meds: No Currently Unemployed: No Education: High School Diploma/GED Difficulty w/ Childcare or Family Care: No Additional living arrangements comments: Lives in an apartment. 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 Spiritual care concerns: No Exam Narrative: GENERAL: Well-appearing, well-nourished, and frequent coughing/clearing of throat. HEAD: Normocephalic, atraumatic. EYES: PERRL and EOMI. ENT: Mucous membranes moist. Normal appearing posterior oropharynx. NECK: Supple. CHEST: Clear to auscultation. No respiratory distress. HEART: Tachycardic and regular. Normal peripheral pulses. EXTREMITIES: Normal range of motion. No edema. SKIN: Warm, dry, no rash. NEURO: Alert and oriented x3. PSYCH: Mildly anxious which is appropriate given concern for anaphylaxis. Course Course Emergency Course: Patient feels improved. She is not wish to be at the hospital and she needs to since she has anxiety. Discharge steroids, she has famotidine and Benadryl at home. Vital Signs Vital signs: Vital Signs Pulse Rate 124 H 08/22/24 17:28 Respiratory Rate 24 H 08/22/24 17:28 Blood Pressure 129/76 08/22/24 17:28 Pulse Oximetry 99 08/22/24 17:28 Oxygen Delivery Room Air 08/22/24 17:28 Pulse Rate 96 08/22/24 18:29 Respiratory Rate 18 08/22/24 18:29 Blood Pressure 122/80 08/22/24 18:29 Pulse Oximetry 98 08/22/24 18:29 Oxygen Delivery Room Air 08/22/24 17:28 Discharge Plan Discharge Clinical Impression: Allergic reaction Patient Disposition: Home Condition: Stable Instructions: General Allergic Reaction (ED) Additional Instructions: Return the ER if he cannot breathe, he cannot swallow, you lose consciousness, or you have additional concerns Patient Language: Arabic Prescriptions: New prednisone 20 mg tablet 40 mg PO DAILY 5 Days Qty: 10 0RF No Action famotidine 40 mg tablet 40 mg PO DAILY Qty: 4 0RF diphenhydramine HCl 25 mg tablet 50 mg PO BID PRN (Reason: allergy symptoms) Qty: 8 0RF prednisone 20 mg tablet 20 mg PO DAILY Qty: 4 0RF epinephrine 0.3 mg/0.3 mL auto-injector 0.3 mg IM Q5-15M PRN (Reason: anaphylaxis) Qty: 2 0RF Rx Instructions: do not exceed 3 doses per episode prednisone 20 mg tablet 40 mg PO DAILY 4 Days Qty: 8 0RF famotidine 20 mg tablet 20 mg PO DAILY Qty: 14 0RF loratadine 10 mg tablet 10 mg PO DAILY Qty: 14 0RF loratadine 10 mg tablet 10 mg PO DAILY Qty: 14 0RF albuterol sulfate 90 mcg/actuation HFA aerosol inhaler 1 - 2 puff INHALATION Q4-6H PRN (Reason: Shortness Of Breath Or Wheezing) acetaminophen 500 mg capsule 500 mg PO Q6H PRN (Reason: fever or pain) Qty: 30 0RF cromolyn 100 mg/5 mL concentrate 100 mg PO TIDHS fexofenadine 180 mg Tablet 180 mg PO BID famotidine [Pepcid] 20 mg Tablet 20 mg PO DAILY montelukast [Singulair] 10 mg Tablet 10 mg PO DAILY Xolair 150 mg/mL Syringe See Rx Instructions .ROUTE .COMPLEX Rx Instructions: 150 mg subcutaneously every other week on Friday prednisone 10 mg Tablet 40 mg PO DIRECTED Qty: 30 0RF Rx Instructions: 40 MG daily x3 days, then 30 MG daily x3 days, then 20 MG daily x3 days, then 10 MG daily x3 days, then stop Follow-up/Referrals: Octavio,Krystin Zavala MD [Primary Care Provider] - 1 Week
[2024-08-22 18:29] VITALS: BP 122/80; PULSE 96; RESP 18; O2SAT 98
[2024-08-22 19:11] VITALS: BP 129/99; PULSE 94; RESP 20; O2SAT 98
[2024-08-22 19:14] VITALS: BP 129/99; PULSE 94; RESP 20; O2SAT 98
== END 2024-08-22 19:15 | disposition home or self-care (01) ==
PROVIDERS: Emergency Provider Emergency Medicine; PCP Family Medicine Sports Medicine
DX: T78.1XXA Other adverse food reactions, not elsewhere classified, initial encounter (principal); F41.9 Anxiety disorder, unspecified
CPT/HCPCS: 96374; 96375; 99284; J1200; J2405; J2919